=== PATIENT | female | born 1985 | race Caucasian/White ===

== ENCOUNTER 2017-03-02 13:57 | Emergency (ER) | payer MEDICAID, OTHER ==
--- NOTE | 2017-03-02 14:57 | ED Physician Documentation ---
History of Present Illness - Stated complaint Stated Complaint: FEMALE - Chief complaint Chief Complaint: General - History obtained from History obtained from: Patient - History of Present Illness Timing: Other (31-year-old has had overt pain with cramping and occasional left- sided stabbing pain for a month since having a new IUD placed, and feels like the strings are excessively palpable. Had a fever a week ago was diagnosed with mastitis and hasn't had a fever since starting antibiotics.) Review of Systems Constitutional: denies: Fever, Chills Cardiac: denies: Chest pain / pressure, Palpitations Respiratory: denies: Dyspnea, Cough GI: denies: Nausea, Diarrhea PD PAST MEDICAL HISTORY - Past Medical History Respiratory: Asthma - Past Surgical History Past Surgical History: Yes - Present Medications Home Medications: Ambulatory Orders Medication Instructions Recorded Confirmed Fluticasone [Flonase] 1 spray ANATOLIY DAILY 05/15/16 03/02/17 Thyroid,Pork [[place] Thyroid] 30 mg PO DAILY 05/15/16 03/02/17 Vitamin D3/Folic Acid [Noxifol-D3 1 tab PO DAILY 05/15/16 03/02/17 2,500 Unit-1 mg Tab] - Allergies Allergies/Adverse Reactions: Allergies Allergy/AdvReac Type Severity Reaction Status Date / Time No Known Drug Allergies Allergy Verified 05/15/16 23:15 - Social History Does the pt smoke?: No Smoking Status: Never smoker Does the pt drink ETOH?: No Does the pt have substance abuse?: No - Immunizations Immunizations are current?: Yes PD ED PE NORMAL - Vitals Vital signs reviewed: Yes - General General: Alert and oriented X 3, No acute distress - Abdomen Abdomen: Soft, Non tender - Female Female : Studio Camera 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 (Kendal LANGFORD), Other (Strings about 3-4 cm out of os and requested IUD removal and this was done.) - Derm Derm: No rash - Neuro Neuro: Alert and oriented X 3, Normal speech - Psych Psych: Normal mood, Normal affect Results - Vitals Vitals: Vital Signs - 24 hr 03/02/17 03/02/17 14:03 15:22 Temperature 36.7 C Heart Rate 58 L 66 Respiratory 18 14 Rate Blood Pressure 119/72 124/72 O2 Saturation 100 100 Oxygen O2 Source Room air - Labs Labs: Laboratory Tests 03/02/17 15:10 Urine Color YELLOW Urine Clarity CLEAR Urine pH 6.5 Ur Specific [place] 1.015 Urine Protein NEGATIVE Urine Glucose (UA) NEGATIVE Urine Ketones NEGATIVE Urine Occult Blood NEGATIVE Urine Nitrite NEGATIVE Urine Bilirubin NEGATIVE Urine Urobilinogen 0.2 (NORMAL) Ur Leukocyte Esterase NEGATIVE Ur Microscopic Review NOT INDICATED Urine Culture Comments NOT INDICATED Urine HCG, Qual NEGATIVE PD MEDICAL DECISION MAKING - ED course ED course: Ongoing symptoms likely related old to low lying IUD and she requested removal which was done. Departure - Departure Disposition: 01 Home, Self Care Clinical Impression: Encounter for IUD removal Condition: Good Record reviewed to determine appropriate education?: Yes Comments: Use alternative control until you followup with your physician and discuss either replacement of the IUD or alternatives. Discharge Date/Time: 03/02/17 15:32
[2017-03-02 15:23] VITALS: BP 124/72
[2017-03-02 15:32] LABS: BILIRUBIN,URINE NEGATIVE (NEGATIVE); PH,URINE 6.5 PH (5.0-7.5)
[2017-03-02 15:35] LABS: HCG UR QUAL NEGATIVE; UA CHARGE (STRIP ONLY) YES; UR CULTURE IF IND NOT INDICATED
== END 2017-03-02 15:32 | disposition home or self-care (01) ==
LOC: ED 13:57
DX: Z30.432 Encounter for removal of intrauterine contraceptive device (principal); J45.909 Unspecified asthma, uncomplicated
CPT/HCPCS: 81001; 81003; 81025; 87086; 99283

== ENCOUNTER 2021-07-18 13:47 | Emergency (ER) | payer MEDICAID, OTHER ==
[2021-07-18] MEDS ORDERED: CHERRY SYRUP 10 ML UDC PO ONE (14:19)
[2021-07-18] MEDS ORDERED: DEXAMETHASONE 10 MG/ML VIAL PO STA (14:19)
[2021-07-18] MEDS ORDERED: KETOROLAC 60 MG/2 ML VIAL IM STA (14:19)
--- NOTE | 2021-07-18 14:21 | ED Physician Documentation ---
PD HPI CHEST PAIN - Stated complaint Stated Complaint: RT SIDE RIB INJ/FEVER - Chief complaint Chief Complaint: General - History obtained from History obtained from: Patient - History of Present Illness Timing - onset: How many days ago (4) Timing - onset during: Other (fell) Timing - duration: Days (4) Timing - details: Abrupt onset, Still present Quality: Sharp, Pain Location: Right chest Radiation: No: Jaw, Neck, Back, Abdominal, Left upper extremity, Right upper extremity Improved by: Rest Worsened by: Exertion, Inspiration, Movement, Palpation, Position Associated symptoms: Shortness of air. No: Diaphoresis, Nausea, Vomiting, Feeling faint / dizzy Similar symptoms before: Has not had sx before Recently seen: Not recently seen - Additional information Additional information: 35-year-old female with a history of ulcerative colitis has developed worsening chest pain after falling 4 days ago and injuring her right ribs. She states that she felt a crack and heard a crack when this occurred and she has had increasing pain over the past 4 days. She recalls an injury to her ribs the prior week when she went to crawl into an attic space and pulled herself up through the hole in the ceiling and scraped her right side chest on the opening. She had some pain with that but it resolved. She subsequently fell in the shower four days ago and at that time heard the crack. Pain has increased daily. She gives additional history that she was able to walk on a femur fracture for 2 years until she re-injured the area and had to have a procedure to fix it. Review of Systems Constitutional: reports: Fever Eyes: denies: Decreased vision Ears: denies: Ear pain Nose: denies: Congestion Throat: denies: Sore throat Cardiac: reports: Chest pain / pressure. denies: Palpitations, Pedal edema, Calf pain Respiratory: denies: Dyspnea, Cough, Wheezing GI: denies: Abdominal Pain, Nausea, Vomiting, Constipation, Diarrhea : denies: Dysuria, Frequency Musculoskeletal: denies: Neck pain, Back pain, Extremity pain Neurologic: denies: Generalized weakness, Focal weakness, Numbness PD PAST MEDICAL HISTORY - Past Medical History Respiratory: Asthma - Past Surgical History Past Surgical History: Yes - Present Medications Home Medications: Ambulatory Orders Medication Instructions Recorded Confirmed Fluticasone [Flonase] 1 spray ANATOLIY DAILY 05/15/16 03/02/17 Thyroid,Pork [[place] Thyroid] 30 mg PO DAILY 05/15/16 03/02/17 Vitamin D3/Folic Acid [Noxifol-D3 1 tab PO DAILY 05/15/16 03/02/17 2,500 Unit-1 mg Tab] HYDROcod/ACETAM 5/325 [[place] 5/325] 1 - 2 tablet PO Q6H PRN #14 tablet 07/18/21 - Allergies Allergies/Adverse Reactions: Allergies Allergy/AdvReac Type Severity Reaction Status Date / Time No Known Drug Allergies Allergy Verified 07/18/21 14:07 - Social History Does the pt smoke?: No Smoking Status: Never smoker Does the pt drink ETOH?: No Does the pt have substance abuse?: No - Immunizations Immunizations are current?: Yes PD ED PE NORMAL - Vitals Vital signs reviewed: Yes (nomral ) - General General: Alert and oriented X 3, No acute distress, Well developed/nourished - HEENT HEENT: Atraumatic, PERRL, EOMI - Neck Neck: Supple, no meningeal sign, No bony TTP - Cardiac Cardiac: RRR, No murmur - Respiratory Respiratory: No respiratory distress, Clear bilaterally, Other (mild chest wall tenderness to the lateral chest wall on the right side. ) - Abdomen Abdomen: Soft, Non tender - Back Back: No CVA TTP, No spinal TTP - Derm Derm: Normal color, Warm and dry, No rash - Extremities Extremities: No deformity, No edema - Neuro Neuro: Alert and oriented X 3, regional economic liaison 2-12 intact, No motor deficit, No sensory deficit, Normal speech Eye Opening: Spontaneous Motor: Obeys Commands Verbal: Oriented GCS Score: 15 - Psych Psych: Normal mood, Normal affect Results - Vitals Vitals: Vital Signs - 24 hr 07/18/21 14:04 Temperature 36.7 C Heart Rate 84 Respiratory 14 Rate O2 Saturation 99 Oxygen O2 Source Room air - Rads (name of study) ribs with PA chest Radiology: Prelim report reviewed (Impression: Chest without acute cardiopulmonary abnormalities. No evidence for acute/displaced rib fractures.), EMP read indepedently, See rad report PD MEDICAL DECISION MAKING - ED course Complexity details: reviewed results, re-evaluated patient, considered differential, d/w patient ED course: 35-year-old female with a chest wall contusion and worsening pain 4 days after injury has typical onset of peak of pain. She is administered dexamethasone and Toradol with improvement in her pain. Her plain films do not demonstrate any evidence of a fracture. I have indicated the patient that she could still have a cracked one of her ribs would behave identical to a fracture. Departure - Departure Disposition: 01 Home, Self Care Clinical Impression: Chest wall contusion Qualifiers: Encounter type: initial encounter Laterality: right Qualified Code(s): S20.211A - Contusion of right front wall of thorax, initial encounter Condition: Stable Instructions: ED Contusion Chest Wall, ED Contusion Vs Minor Fx Rib Follow-Up: PIPER WELLS [Primary Care Provider] - Prescriptions: HYDROcod/ACETAM 5/325 [[place] 5/325] 1 - 2 tablet PO Q6H PRN #14 tablet PRN Reason: Pain
--- NOTE | 2021-07-18 15:59 | XRAY Report ---
PROCEDURE: Ribs w/PA Chest RT INDICATIONS: rib pain laterally TECHNIQUE: 2 views of the right ribs were acquired, along with a single view chest. COMPARISON: None FINDINGS: Surgical changes and devices: None. Bones and chest wall: No fractures or dislocations. Well-circumscribed oval sclerotic lesion involvi ng the proximal right humerus likely representing a bone island. No aggressive features identified. O therwise, no suspicious bony lesions. Overlying soft tissues appear unremarkable. Lungs and pleura: No pleural effusions or pneumothorax. Lungs appear clear. Mediastinum: Mediastinal contours appear normal. Heart size is normal. IMPRESSION: Chest without acute cardiopulmonary abnormalities. No evidence for acute/displaced rib fractures. Reviewed by: Mir Arana MD on 07/18/2021 3:58 PM PDT Approved by: Mir Arana MD on 07/18/2021 3:58 PM PDT Station ID: [id number]
== END 2021-07-18 16:20 | disposition home or self-care (01) ==
LOC: ED 13:47
DX: S20.211A Contusion of right front wall of thorax, initial encounter (principal); W18.2XXA Fall in (into) shower or empty bathtub, initial encounter; Y92.9 Unspecified place or not applicable; K51.90 Ulcerative colitis, unspecified, without complications
CPT/HCPCS: 96372; 99283

== ENCOUNTER 2022-08-11 13:47 | Emergency (ER) | payer MEDICAID ==
[2022-08-11 14:19] LABS: BASOPHILS % (AUTO) 0.2 %; HCT - HEMATOCRIT 37.5 % (37.0-47.0); HGB - HEMOGLOBIN 12.7 g/dL (12.0-16.0); LYMPHOCYTES # (AUTO) 1.4 10^3/uL (1.5-3.5); LYMPHOCYTES % (AUTO) 7.9 %; MEAN CORPUSCULAR HEMOGLOBIN 31.3 pg (27.0-31.0); MEAN CORPUSCULAR HGB CONC 33.9 g/dL (32.0-36.0); MEAN CORPUSCULAR VOLUME 92.4 fL (81.0-99.0); MEAN PLATELET VOLUME 9.9 fL (7.9-10.8); MONOCYTES # (AUTO) 0.8 10^3/uL (0.0-1.0); MONOCYTES % (AUTO) 4.5 %; NEUTROPHILS # (AUTO) 15.5 10^3/uL (1.5-6.6); NEUTROPHILS % (AUTO) 86.8 %; PLT - PLATELET COUNT 251 10^3/uL (130-450); RED BLOOD COUNT 4.06 10^6/uL (4.20-5.40); RED CELL DISTRIBUTION WIDTH 11.6 % (12.0-15.0); WHITE BLOOD COUNT 17.8 x10^3/uL (4.8-10.8)
[2022-08-11] MEDS ORDERED: methylPREDNISolone SUCCINATE 125 MG/2 ML VIAL IVP STA (14:24)
[2022-08-11] MEDS ORDERED: ONDANSETRON 4 MG/2 ML VIAL IVP STA (14:24)
[2022-08-11] MEDS ORDERED: SODIUM CHLORIDE 0.9% 2,000 ML IV STA (14:24)
--- NOTE | 2022-08-11 14:28 | ED Physician Documentation ---
History of Present Illness - Stated complaint Stated Complaint: ABD PX,FEVER,FATIGUE - Chief complaint Chief Complaint: Abd Pain - History obtained from History obtained from: Patient - History of Present Illness Timing: How many days ago (5) - Additonal information Additional information: Patient is a 36-year-old female who presents to the emergency department complaining of abdominal pain for the past 5 days. She has a history of ulcerative colitis, she is on Humira at home. She recently finished a course of steroids and antibiotics for what sounds like cystic acne. She was on cephalexin for this. She states that she has had a small amount of blood in the stool. Has had more constipation than diarrhea. No vomiting. She has had mild nasal congestion with green mucus drainage from her nose. She sees GI at [facility]. Feels similar to her prior UC flares. Review of Systems Ten Systems: 10 systems reviewed and negative Constitutional: denies: Fever, Chills Respiratory: denies: Cough GI: denies: Vomiting, Hematemesis, Bloody / black stool Skin: denies: Rash Musculoskeletal: denies: Neck pain, Back pain Neurologic: denies: Headache PD PAST MEDICAL HISTORY - Past Medical History Past Medical History: Yes Respiratory: Asthma GI: Ulcerative colitis - Past Surgical History Past Surgical History: Yes - Present Medications Home Medications: Ambulatory Orders Medication Instructions Recorded Confirmed Adalimumab [Humira(Cf) Pen] 40 mg SQ PRN PRN 08/11/22 08/11/22 Cefdinir 300 mg PO BID #20 cap 08/11/22 HYDROmorphone [Dilaudid] 2 mg PO Q4H PRN #14 tablet 08/11/22 Levothyroxine Sodium [Euthyrox] 88 mcg PO DAILY 08/11/22 08/11/22 Spironolactone [Aldactone] 50 mg PO DAILY 08/11/22 08/11/22 predniSONE [Deltasone] 10 mg PO [id number] #42 tab 08/11/22 - Allergies Allergies/Adverse Reactions: Allergies Allergy/AdvReac Type Severity Reaction Status Date / Time No Known Drug Allergies Allergy Verified 07/18/21 14:07 - Social History Does the pt smoke?: No Smoking Status: Never smoker Does the pt drink ETOH?: No Does the pt have substance abuse?: No - Immunizations Immunizations are current?: Yes - POLST Patient has POLST: No PD ED PE NORMAL - Vitals Vital signs reviewed: Yes - General General: Alert and oriented X 3, No acute distress, Well developed/nourished - HEENT HEENT: PERRL, Moist mucous membranes - Neck Neck: Supple, no meningeal sign - Cardiac Cardiac: RRR, Strong equal pulses - Respiratory Respiratory: No respiratory distress, Clear bilaterally - Abdomen Abdomen: Soft, Non distended, Other (Tender to palpation on the left lower quadrant. No peritoneal signs.) - Back Back: No CVA TTP, No spinal TTP - Derm Derm: Warm and dry - Extremities Extremities: No edema - Neuro Neuro: Alert and oriented X 3 - Psych Psych: Normal mood, Normal affect Results - Vitals Vitals: Vital Signs - 24 hr 08/11/22 08/11/22 08/11/22 13:56 15:59 17:00 Temperature 37.0 C Heart Rate 76 71 76 Respiratory 19 19 19 Rate Blood Pressure 147/88 H 121/72 122/75 O2 Saturation 98 98 99 Oxygen O2 Source Room air - Labs Labs: Laboratory Tests 08/11/22 08/11/22 08/11/22 14:02 14:10 14:10 WBC 17.8 H RBC 4.06 L Hgb 12.7 Hct 37.5 MCV 92.4 MCH 31.3 H MCHC 33.9 RDW 11.6 L Plt Count 251 MPV 9.9 Neut # (Auto) 15.5 H Lymph # (Auto) 1.4 L [place] # (Auto) 0.8 Eos # (Auto) 0.0 Baso # (Auto) 0.0 Absolute Nucleated RBC 0.00 Nucleated RBC % 0.0 Sodium 134 L Potassium 3.9 Chloride 101 Carbon Dioxide 24 Anion Gap 9.0 BUN 15 Creatinine 0.9 Estimated GFR (MDRD) 71 L Glucose 111 H Calcium 9.3 Total Bilirubin 1.1 H AST 19 ALT 19 Alkaline Phosphatase 45 Total Protein 7.7 Albumin 4.8 Globulin 2.9 Albumin/Globulin Ratio 1.7 Lipase 33 Urine Color YELLOW Urine Clarity CLEAR Urine pH 6.0 Ur Specific [place] 1.010 Urine Protein NEGATIVE Urine Glucose (UA) NEGATIVE Urine Ketones NEGATIVE Urine Occult Blood SMALL H Urine Nitrite NEGATIVE Urine Bilirubin NEGATIVE Urine Urobilinogen 0.2 (NORMAL) Ur Leukocyte Esterase TRACE H Urine RBC 0-5 Urine WBC 6-10 H Ur Squamous Epith Cells RARE Squamous Urine Bacteria Rare Ur Microscopic Review INDICATED Urine Culture Comments INDICATED Urine HCG, Qual NEGATIVE - Rads (name of study) CT abdomen pelvis Radiology: Final report received, EMP read contemporaneously, See rad report PD MEDICAL DECISION MAKING - ED course Complexity details: reviewed results, re-evaluated patient, considered differential, d/w patient ED course: 36-year-old female with abdominal pain. She does have a 4.5 x 3.1 cm lesion in the left adnexa. Likely ovarian cyst. No evidence of torsion. She does have a leukocytosis, but has been on prednisone recently. She does feel like she is having a ulcerative colitis flare, therefore we will treat with steroids. She also appears to have a UTI. Will place on antibiotics for this. We will have her follow-up with her doctor regarding the ovarian cyst. Patient is well- appearing, nontoxic. Afebrile. No vomiting. Patient counseled regarding signs and symptoms for which I believe and urgent re-evaluation would be necessary. Patient with good understanding of and agreement to plan and is comfortable going home at this time This document was made in part using voice recognition software. While efforts are made to proofread this document, sound alike and grammatical errors may occur. IMPRESSION: 1. There is a 4.5 x 3.1 cm oval, near fluid attenuation cystic lesion in the region the left ovary/adnexa likely representing an ovarian cyst. Otherwise, no acute abnormalities identified in the abdomen or pelvis. Specifically, no evidence for acute inflammatory changes of large or small bowel. 2. Small fat-containing umbilical hernia without acute inflammation. Departure - Departure Disposition: 01 Home, Self Care Clinical Impression: Ulcerative colitis Qualifiers: Ulcerative colitis location: unspecified ulcerative colitis location Digestive disease complication type: without complication Qualified Code(s): K51.90 - Ulcerative colitis, unspecified, without complications Ovarian cyst Qualifiers: Laterality: left Qualified Code(s): N83.202 - Unspecified ovarian cyst, left side UTI (urinary tract infection) Qualifiers: Urinary tract infection type: acute cystitis Hematuria presence: without hematuria Qualified Code(s): N30.00 - Acute cystitis without hematuria Condition: Good Instructions: ED Cyst Ovarian, ED Colitis Ulcerative Follow-Up: PIPER WELLS [Primary Care Provider] - Within 1 week Prescriptions: Cefdinir 300 mg PO BID #20 cap predniSONE [Deltasone] 10 mg PO [id number] #42 tab HYDROmorphone [Dilaudid] 2 mg PO Q4H PRN #14 tablet PRN Reason: Abdominal Pain Comments: You do have a left-sided ovarian cyst on CT. It is recommended that you follow- up with your doctor to ensure resolution of this. They will usually want to repeat an ultrasound in about 4 to 6 weeks. Your prescriptions were sent to [facility] in [place]. You can use the medication as needed for pain. The steroid should help with the ulcerative colitis flare. There is no evidence of abscess or perforation on CT scan. I am prescribing a short course of narcotic pain medication for you. These are potentially dangerous and addictive medications that should be used carefully. These medications may constipate you. Take an [id number] stool softener (docusate) twice daily with plenty of water while taking these medications. If you go 24 hours without a bowel movement, take [id number] miralax, per package instructions. Do not drink or drive while taking these medications. If you received narcotic or sedating medications while in the emergency department, do not drive for 24 hours. Store this medication in a safe, secure place and out of reach of children. It is a violation of federal law to give or sell this medication to another person or to use in a manner other than prescribed. The ED will not refill narcotic prescriptions, including prescriptions lost or stolen. To dispose of unwanted medications: 1. [facility] at [address] in [place] has a medication drop box. They accept prescription medications (in pill form) Saturday through Saturday 9:00 a.m. to 5:00 p.m. 2. The [facility] accepts prescription medications (in pill form only) for disposal year round. Call for more information. 3. Contact the [facility] for the next [facility] sponsored prescription drug collection event. , [phone], or [phone]; Discharge Date/Time: 08/11/22 17:08
[2022-08-11 14:29] LABS: ALBUMIN 4.8 g/dL (3.2-5.5); ALBUMIN/GLOBULIN RATIO 1.7 (1.0-2.2); BILIRUBIN,TOTAL 1.1 mg/dL (0.2-1.0); CALCIUM 9.3 mg/dL (8.5-10.3); CREATININE 0.9 mg/dL (0.4-1.0); POTASSIUM 3.9 mmol/L (3.5-5.0); TOTAL PROTEIN 7.7 g/dL (6.7-8.2)
[2022-08-11 14:37] LABS: BILIRUBIN,URINE NEGATIVE (NEGATIVE); GLUCOSE, URINE (UA) NEGATIVE (NEGATIVE); KETONES,URINE (UA) NEGATIVE (NEGATIVE); LEUKOCYTE ESTERASE, URINE TRACE (NEGATIVE); NITRITE,URINE NEGATIVE (NEGATIVE); OCCULT BLOOD,URINE SMALL (NEGATIVE); PROTEIN,URINE NEGATIVE (NEGATIVE); UROBILINOGEN,URINE 0.2 (NORMAL) E.U./dL (NORMAL)
[2022-08-11 14:43] LABS: CLARITY,URINE CLEAR (CLEAR); HCG UR QUAL NEGATIVE
[2022-08-11] MEDS ORDERED: iohexoL-300 100 ML VIAL ONE (14:48)
[2022-08-11 15:04] LABS: BACTERIA,URINE Rare /HPF (None Seen); RBC,URINE 0-5 /HPF (0-5); SQUAMOUS EPITHELIAL CELL,UR RARE Squamous (<= Few)
[2022-08-11] MEDS ORDERED: iohexoL-300 100 ML VIAL IVP ONE (15:15)
--- NOTE | 2022-08-11 15:54 | CT Report ---
PROCEDURE: ABDOMEN/PELVIS W INDICATIONS: L sided abd pain, h/o ulcerative colitis CONTRAST: 100ml omni 300 TECHNIQUE: After the administration of weight appropriate dose of intravenous contrast, 5 mm thick sections acqu ired from the diaphragms to the symphysis. 5 mm thick coronal and sagittal reformats were acquired. For radiation dose reduction, the following was used: automated exposure control, adjustment of mA and/or kV according to patient size. COMPARISON: None. FINDINGS: Image quality: Excellent. ABDOMEN: Lung bases: Lung bases are clear. Heart size is normal. Partially imaged bilateral breast implants . Solid organs: Liver and spleen are normal in size and enhancement. Gallbladder is unremarkable. Bi liary system is non dilated. Pancreas enhances normally. No adrenal nodules. Kidneys demonstrate n ormal size and enhancement, without hydronephrosis. Peritoneum and bowel: Bowel loops demonstrate normal wall thickness and caliber. No free fluid or a ir. Nodes and vessels: No retroperitoneal or mesenteric adenopathy by size criteria. Aorta and inferior vena cava are normal in size. Miscellaneous: Small fat-containing umbilical hernia without acute inflammation. PELVIS: Genitourinary: Bladder wall thickness is normal. There is a 4.5 x 3.1 cm oval hypodense lesion oscar uring near fluid attenuation in the region of the left ovary/adnexa. This likely represents an ovaria n cyst. No surrounding inflammatory changes or significant pelvic free fluid. Miscellaneous: No inguinal hernias or adenopathy. Bones: No suspicious bony lesions. No acute vertebral body compression fractures. IMPRESSION: 1. There is a 4.5 x 3.1 cm oval, near fluid attenuation cystic lesion in the region the left ovary/ad nexa likely representing an ovarian cyst. Otherwise, no acute abnormalities identified in the abdomen or pelvis. Specifically, no evidence for acute inflammatory changes of large or small bowel. 2. Small fat-containing umbilical hernia without acute inflammation. Reviewed by: Mir Arana MD on 08/11/2022 3:52 PM PST Approved by: Mir Arana MD on 08/11/2022 3:52 PM PST Station ID: [id number]
[2022-08-11] MEDS ORDERED: LIDOCAINE 1% 2 ML VIAL MC ONE (16:35)
[2022-08-11] MEDS ORDERED: cefTRIAXone 1 GM VIAL IM STA (16:35)
[2022-08-11 17:08] VITALS: BP 122/75
== END 2022-08-11 17:08 | disposition home or self-care (01) ==
LOC: ED 13:47
DX: K51.90 Ulcerative colitis, unspecified, without complications (principal); N83.202 Unspecified ovarian cyst, left side; N30.00 Acute cystitis without hematuria
CPT/HCPCS: 36415; 74177; 80053; 81001; 81025; 83690; 85025; 87077; 87086; 87181; 96372; 96374; 99284; Q9967; 81003

== ENCOUNTER 2023-01-15 11:27 | Emergency (ER) | payer MEDICAID ==
[2023-01-15] MEDS ORDERED: SODIUM CHLORIDE 0.9% IV STA (11:51)
[2023-01-15] MEDS ORDERED: ONDANSETRON 4 MG/2 ML VIAL IVP STA (11:56)
--- NOTE | 2023-01-15 11:56 | ED Physician Documentation ---
History of Present Illness - Stated complaint Stated Complaint: FEMALE , HYDRATION,SHAKES - Chief complaint Chief Complaint: Fever - Additonal information Additional information: 37-year-old female presents emergency department for evaluation of acute fevers, difficulty urinating, dysuria, and mucoid/bloody stools. Reports that she underwent a partial hysterectomy just over 1 week ago at [facility] with Dr. Olivares. During surgery she had a Sherman catheter in place. She reports that the staff told her they gave her 3 L of IV fluid but she only had 44 mL of urinary output. Since discharge over the course of the week she is fou nd painful urination but is unsure if she is actually voiding large amounts. She has been trying to stay well-hydrated. This morning she had generalized body aches, subjective fevers at home and noticed that her stools have become mucoid and stringy whereas they are typically bloody. She does have a longstanding history of ulcerative colitis which she is on Humira. Patient has been taking budesonide per recommendation of GI since being postoperative. She also reports that she had Giardia about 1 week prior to having the surgery for which she took antibiotics. Patient denies any cough. She has some generalized nonfocal abdominal pain. Surgical incision sites are clean dry and intact. Patient reports that she has had little to no vaginal bleeding since discharge last week. Review of Systems Constitutional: reports: Fever, Myalgias Throat: reports: Reviewed and negative Cardiac: reports: Reviewed and negative Respiratory: reports: Reviewed and negative GI: reports: Abdominal Pain, Nausea, Bloody / black stool. denies: Vomiting : reports: Dysuria, Unable to Void Skin: reports: Reviewed and negative Musculoskeletal: reports: Reviewed and negative Neurologic: reports: Reviewed and negative PD PAST MEDICAL HISTORY - Past Medical History Respiratory: Asthma GI: Ulcerative colitis - Past Surgical History Past Surgical History: Yes - Present Medications Home Medications: Ambulatory Orders Medication Instructions Recorded Confirmed Adalimumab [Humira(Cf) Pen] 40 mg SQ PRN PRN 08/11/22 08/11/22 Cefdinir 300 mg PO BID #20 cap 08/11/22 HYDROmorphone [Dilaudid] 2 mg PO Q4H PRN #14 tablet 08/11/22 Levothyroxine Sodium [Euthyrox] 88 mcg PO DAILY 08/11/22 08/11/22 Spironolactone [Aldactone] 50 mg PO DAILY 08/11/22 08/11/22 predniSONE [Deltasone] 10 mg PO [id number] #42 tab 08/11/22 - Allergies Allergies/Adverse Reactions: Allergies Allergy/AdvReac Type Severity Reaction Status Date / Time latex Allergy Hives Verified 01/15/23 11:38 oxycodone Allergy Hives Verified 01/15/23 11:38 - Social History Does the pt smoke?: No Smoking Status: Never smoker Does the pt drink ETOH?: No Does the pt have substance abuse?: No - Immunizations Immunizations are current?: Yes - POLST Patient has POLST: No PD ED PE NORMAL - General General: Alert and oriented X 3, Well developed/nourished (Thin). No: No acute distress (Appears uncomfortable, in the position.) - HEENT HEENT: Atraumatic, Moist mucous membranes - Neck Neck: Supple, no meningeal sign, No adenopathy - Cardiac Cardiac: RRR, No murmur - Respiratory Respiratory: No respiratory distress, Clear bilaterally - Abdomen Abdomen: Normal bowel sounds, Soft. No: Non tender (Generally tender though nonperitoneal abdominal exam. Surgical laparotomy sites appear clean dry and intact without surrounding erythema or drainage.) - Back Back: No CVA TTP, No spinal TTP - Derm Derm: Normal color, Warm and dry, No rash - Extremities Extremities: No deformity, Normal ROM s pain, No edema - Neuro Neuro: Alert and oriented X 3, rooming house operator 2-12 intact Eye Opening: Spontaneous Motor: Obeys Commands Verbal: Oriented GCS Score: 15 Results - Vitals Vitals: Vital Signs - 24 hr 01/15/23 01/15/23 01/15/23 11:35 12:23 13:03 Temperature 38.0 C H Heart Rate 96 79 77 Respiratory 20 18 16 Rate Blood Pressure 135/95 H 127/70 113/54 L O2 Saturation 100 100 01/15/23 01/15/23 14:30 15:12 Temperature Heart Rate 87 89 Respiratory 16 18 Rate Blood Pressure 113/57 L 121/68 O2 Saturation 100 100 Oxygen O2 Source Room air - Labs Labs: Laboratory Tests 01/15/23 01/15/23 01/15/23 11:54 11:54 11:54 WBC 14.7 H RBC 4.05 L Hgb 12.7 Hct 37.3 MCV 92.1 MCH 31.4 H MCHC 34.0 RDW 11.6 L Plt Count 197 MPV 9.8 Neut # (Auto) 11.7 H Lymph # (Auto) 1.2 L Wetzel # (Auto) 0.9 Eos # (Auto) 0.7 Baso # (Auto) 0.1 Absolute Nucleated RBC 0.00 Nucleated RBC % 0.0 Sodium 135 Potassium 3.3 L Chloride 100 L Carbon Dioxide 26 Anion Gap 9.0 BUN 13 Creatinine 0.8 Estimated GFR (MDRD) 81 L Glucose 96 Lactic Acid 0.8 Calcium 9.1 Total Bilirubin 1.4 H AST 16 ALT 18 Alkaline Phosphatase 40 L Total Protein 7.9 Albumin 4.8 Globulin 3.1 Albumin/Globulin Ratio 1.5 Urine Color Urine Clarity Urine pH Ur Specific [place] Urine Protein Urine Glucose (UA) Urine Ketones Urine Occult Blood Urine Nitrite Urine Bilirubin Urine Urobilinogen Ur Leukocyte Esterase Urine RBC Urine WBC Ur Squamous Epith Cells Urine Bacteria Urine Culture Comments Nasal Adenovirus (PCR) Nasal B. parapertussis DNA (PCR) Nasal Coronavir 229E PCR Nasal Coronavir HKU1 PCR Nasal Coronavir NL63 PCR Nasal Coronavir OC43 PCR Nasal Enterovir/Rhinovir PCR Nasal Influenza B PCR Nasal Influenza A PCR Nasal Parainfluen 1 PCR Nasal Parainfluen 2 PCR Nasal Parainfluen 3 PCR Nasal Parainfluen 4 PCR Nasal RSV (PCR) Nasal B.pertussis DNA PCR Nasal C.pneumoniae (PCR) Mario Human Metapneumo PCR Nasal M.pneumoniae (PCR) Nasal SARS-CoV-2 (PCR) 01/15/23 01/15/23 12:15 12:20 WBC RBC Hgb Hct MCV MCH MCHC RDW Plt Count MPV Neut # (Auto) Lymph # (Auto) Wetzel # (Auto) Eos # (Auto) Baso # (Auto) Absolute Nucleated RBC Nucleated RBC % Sodium Potassium Chloride Carbon Dioxide Anion Gap BUN Creatinine Estimated GFR (MDRD) Glucose Lactic Acid Calcium Total Bilirubin AST ALT Alkaline Phosphatase Total Protein Albumin Globulin Albumin/Globulin Ratio Urine Color YELLOW Urine Clarity CLEAR Urine pH 6.0 Ur Specific [place] 1.025 Urine Protein NEGATIVE Urine Glucose (UA) NEGATIVE Urine Ketones NEGATIVE Urine Occult Blood TRACE-INTA Urine Nitrite NEGATIVE Urine Bilirubin NEGATIVE Urine Urobilinogen 0.2 (NORMAL) Ur Leukocyte Esterase NEGATIVE Urine RBC 0-5 Urine WBC 0-3 Ur Squamous Epith Cells MOD Squamous H Urine Bacteria Rare Urine Culture Comments NOT INDICATED Nasal Adenovirus (PCR) NOT DETECTED Nasal B. parapertussis DNA (PCR) NOT DETECTED Nasal Coronavir 229E PCR NOT DETECTED Nasal Coronavir HKU1 PCR NOT DETECTED Nasal Coronavir NL63 PCR NOT DETECTED Nasal Coronavir OC43 PCR NOT DETECTED Nasal Enterovir/Rhinovir PCR NOT DETECTED Nasal Influenza B PCR NOT DETECTED Nasal Influenza A PCR NOT DETECTED Nasal Parainfluen 1 PCR NOT DETECTED Nasal Parainfluen 2 PCR NOT DETECTED Nasal Parainfluen 3 PCR NOT DETECTED Nasal Parainfluen 4 PCR NOT DETECTED Nasal RSV (PCR) NOT DETECTED Nasal B.pertussis DNA PCR NOT DETECTED Nasal C.pneumoniae (PCR) NOT DETECTED Mario Human Metapneumo PCR NOT DETECTED Nasal M.pneumoniae (PCR) NOT DETECTED Nasal SARS-CoV-2 (PCR) NOT DETECTED - Rads (name of study) cxr Relevant Findings:: Final report received, EMP independent interpretation of test (No acute cardiopulmonary process) CT abd Relevant Findings:: Final report received (A few fluid-filled small bowel bowel loops and minor generalized lower pelvic inflammation may indicate enteritis. No focal colonic findings to indicate acute ulcerative colitis. Involuting peripherally vascular Kuehler left ovarian corpus luteal cyst. Interval supraventricular hysterectomy) PD Medical Decision Making - ED course Complexity details: reviewed results, re-evaluated patient, d/w food consultant (Dr. Kristen Olivares) ED course: 37-year-old female presents emergency department for evaluation of difficulty urinating, generalized abdominal pain, mucoid stools and low-grade temperature elevations. She underwent a supracervical hysterectomy at [facility] 1 week ago. She does have a history of ulcerative colitis for which she takes Humira. She has been on Budesonide orally per GI recommendations for management of her UC since the surgery. On presentation to the emergency department she holds her cell from the position. States that she just feels crummy. Abdominal exam showed some generalized belly tenderness but was nonfocal and nonperitoneal. Her surgical incisions appear clean dry without signs of infection. She is not having any vaginal bleeding or discharge. I did obtain a CBC and electrolytes. She does have a mild leukocytosis though no significant left shift. She is on steroids postoperatively which could be the cause of the leukocytosis. Her electrolytes were without acute worrisome findings. Urinalysis showed no findings of infection. A chest x-ray showed no findings of pneumonia. Respiratory PCR panel was entirely negative. 1400: I spoke on the phone with Dr. Rolo Olivares at [facility] to the market research worker who performed the supracervical hysterectomy a little over a week ago. We discussed the patient's current labs indicate a mild leukocytosis with minimal shift. Patient has low-grade fever. Lower abdominal pain and difficulty urinating. She is not having any vaginal discharge. The surgical incisions are clean dry and intact with no surrounding erythema or drainage. CT scan indicates generalized enteritis but not a focal ulcerative colitis. Dr. Olivares was confident on the phone that the patient symptoms today were not likely related to the hysterectomy and encouraged me to speak with the patient's gastroenterology team at [facility]. 1450: I spoke on the phone with Dr. Robles On-call GI at [facility]. Based on what I reported to him for labs, abdominal exam history and CT results he does not feel that the patient would be benefited by having antibiotics. Specifically he does not feel the ulcerative colitis benefit from antibiotics. He was reassured that the CT scan showed no findings of abscess. He is unsure if her pain and fevers are due to a UC flare but did make the recommendation to send stool culture and CMV testing. He would have her continue on the Humira and Budesonide for now. 1530: At this time the patient endorses lower abdominal discomfort. She is able to adequately void. The bladder scan at the bedside showed no residual volume. There was no remarkable volume on CT scan. Clinically we do not have a source of infection. There is no pneumonia in the lungs. No urinary tract infection. Blood cultures are pending. The CT of the abdomen did not reveal any obvious source or findings of abscess collection. Respiratory PCR is negative. The patient reports to me that the Humira always makes her feel bad. She would like to not take it. I wonder if the Humira being taken in the setting of a postoperative state has caused a generalized flare. However at this time there does not appear to be a clinical need for admission. Though the patient is in the postoperative state she is without other worrisome findings. No tachycardia or hypotension. She is discharged home in stable condition. I encouraged her to follow closely with both GI and OB. We also discussed the usual emergent return precautions for failure of her symptoms to resolve Departure - Departure Disposition: Home, Self Care Clinical Impression: Status post hysterectomy, History of ulcerative colitis, Lower abdominal pain, Steroid dependence Condition: Stable Record reviewed to determine appropriate education?: Yes Comments: You came to the emergency department today because you have been having increased pain in your lower abdomen and having difficulty with urination. You did have a hysterectomy a week ago. You do have a history of ulcerative colitis. Today your CBC shows a mild elevation in your white count. This is often seen right after surgery and anytime people are on chronic steroids. Your electrolytes do not show any worrisome findings. You do not have a urinary tract infection. A viral panel was also negative. We did do a CT of your abdomen that does not show findings of an ulcerative colitis flare. There were no worrisome findings really late a to the hysterectomy. You may be having worsening symptoms as you report that Humira always makes you feel bad but it may be making you feel especially worse in the postoperative period. I have ordered stool studies which may be helpful in further diagnosing if you are having an ulcerative colitis flare. You can return the stool at any point to the ER or hospital for testing. It is important that you continue to follow very closely with your market research worker as well as your GI doctors. If you find that your symptoms are worsening, you have uncontrolled fevers, have any fainting episodes or uncontrolled vomiting then you should return immediately to the ER.
[2023-01-15] MEDS ORDERED: fentaNYL 100 MCG/2 ML VIAL IVP STA (12:00)
[2023-01-15] MEDS ORDERED: iohexoL-300 100 ML VIAL ONE (12:01)
[2023-01-15 12:06] LABS: BASOPHILS # (AUTO) 0.1 10^3/uL (0.0-0.1); BASOPHILS % (AUTO) 0.4 %; EOSINOPHILS # (AUTO) 0.7 10^3/uL (0.0-0.7); EOSINOPHILS % (AUTO) 4.7 %; HCT - HEMATOCRIT 37.3 % (37.0-47.0); HGB - HEMOGLOBIN 12.7 g/dL (12.0-16.0); LYMPHOCYTES # (AUTO) 1.2 10^3/uL (1.5-3.5); LYMPHOCYTES % (AUTO) 8.3 %; MEAN CORPUSCULAR HEMOGLOBIN 31.4 pg (27.0-31.0); MEAN CORPUSCULAR VOLUME 92.1 fL (81.0-99.0); MEAN PLATELET VOLUME 9.8 fL (7.9-10.8); MONOCYTES # (AUTO) 0.9 10^3/uL (0.0-1.0); MONOCYTES % (AUTO) 6.1 %; NEUTROPHILS # (AUTO) 11.7 10^3/uL (1.5-6.6); NEUTROPHILS % (AUTO) 80.2 %; PLT - PLATELET COUNT 197 10^3/uL (130-450); RED BLOOD COUNT 4.05 10^6/uL (4.20-5.40); RED CELL DISTRIBUTION WIDTH 11.6 % (12.0-15.0); WHITE BLOOD COUNT 14.7 x10^3/uL (4.8-10.8)
--- NOTE | 2023-01-15 12:14 | XRAY Report ---
PROCEDURE: Chest 1 View X-Ray INDICATIONS: fever, recent surgery TECHNIQUE: One view of the chest was acquired. COMPARISON: None. FINDINGS: Surgical changes and devices: None. Lungs and pleura: No pleural effusions or pneumothorax. Lungs are clear. Mediastinum: Mediastinal contours appear normal. Heart size is normal. Bones and chest wall: No suspicious bony lesions. Overlying soft tissues appear unremarkable. IMPRESSION: No acute cardiopulmonary disease. Reviewed by: Debbie Goodrich MD on 01/15/2023 12:13 PM PDT Approved by: Debbie Goodrich MD on 01/15/2023 12:13 PM PDT Station ID: [id number]
[2023-01-15 12:18] LABS: ALBUMIN 4.8 g/dL (3.2-5.5); ALBUMIN/GLOBULIN RATIO 1.5 (1.0-2.2); BILIRUBIN,TOTAL 1.4 mg/dL (0.2-1.0); CALCIUM 9.1 mg/dL (8.5-10.3); CREATININE 0.8 mg/dL (0.4-1.0); POTASSIUM 3.3 mmol/L (3.5-5.0); TOTAL PROTEIN 7.9 g/dL (6.7-8.2)
[2023-01-15 12:25] LABS: BILIRUBIN,URINE NEGATIVE (NEGATIVE); CLARITY,URINE CLEAR (CLEAR); GLUCOSE, URINE (UA) NEGATIVE (NEGATIVE); KETONES,URINE (UA) NEGATIVE (NEGATIVE); LEUKOCYTE ESTERASE, URINE NEGATIVE (NEGATIVE); NITRITE,URINE NEGATIVE (NEGATIVE); OCCULT BLOOD,URINE TRACE-INTA (NEGATIVE); PROTEIN,URINE NEGATIVE (NEGATIVE); UROBILINOGEN,URINE 0.2 (NORMAL) E.U./dL (NORMAL)
--- OUTSIDE RECORDS SUMMARY | 2023-01-15 12:31 | EXTERNAL MEDICAL SUMMARY RPT | Continuity of Care Document ---
:1985 Author Organization [facility] Address [address] [place] [address] Phone Care Team Providers Name Role Phone Unavailable Unavailable Unavailable Estrella Guevara Unavailable Unavailable Allergies and Intolerances date description facility type (no date) NSAIDS (Non-Steroidal Anti-Inflamma [facility] (unknown) (no date) latex [facility] (unknown) (no date) oxycodone [facility] (unknown) Encounters No information. Functional Status No information. Immunizations No information. Medications date description facility 2023-01-07 00:00 Ondansetron [facility] 2022-12-21 00:00 Alprazolam [facility] 2022-11-25 00:00 Amoxicillin-Pot Clavulanate [facility] 2023-01-07 00:00 Tramadol [facility] 2022-11-19 00:00 [facility] Problems date description facility 2022-10-27 00:00 Cyst of left ovary [facility] 2022-10-27 00:00 Pelvic congestion syndrome [facility] 2022-12-27 00:00 Pain in pelvis [facility] 2023-01-07 08:21 Other ovarian cyst, left side [facility] 2023-01-07 08:21 Other specified conditions associated [facility] female genital or 2023-01-07 08:21 Pelvic and perineal pain [facility] 2023-01-07 08:33 Other ovarian cyst, left side [facility] 2023-01-07 08:33 Other specified conditions associated [facility] female genital or 2023-01-07 08:33 Pelvic and perineal pain [facility] 2023-01-07 09:02 Other ovarian cyst, left side [facility] 2023-01-07 09:02 Other specified conditions associated [facility] female genital or 2023-01-07 09:02 Pelvic and perineal pain [facility] 2023-01-07 12:04 Other ovarian cyst, left side [facility] 2023-01-07 12:04 Other specified conditions associated w [facility] female genital or 2023-01-07 12:04 Pelvic and perineal pain [facility] 2023-01-07 13:41 Other [facility], [facility] 2023-01-07 13:41 Other specified conditions associated w [facility] female genital or 2023-01-07 13:41 Pelvic and perineal pain [facility] Procedures date description facility 2023-01-07 00:00 Laparoscopic Supracervical Hysterectomy [facility]) Results/Labs test date author facility value unit interpret ation Result panel 1 (unknown) (no date) (unknown) [facility] (no value) (units ([facility] unknown) Result panel 2 (unknown) (no date) (unknown) [facility] (no value) ([facility] ([facility] unknown) Result panel 3 (unknown) (no (unknown) (unknown) (no value) (units (unk nown) date) unknown) (unknown) (no (unknown) (unknown) 10/16/22 (units (unkno wn) date) unknown) (unknown) (no (unknown) (unknown) [id number] (units (unkno wn) date) unknown) (unknown) (no (unknown) (unknown) Age/Sex: 36 / F (units (unknown) date) Date of Service: unknown) (unknown) (no (unknown) (unknown) Allergies (units (unkn own) date) unknown) (unknown) (no (unknown) (unknown) [place] (units ( unknown) date) [id number] unknown) (unknown) (no (unknown) (unknown) Attending Dr: (units ( unknown) date) Phoebe Borges unknown) (unknown) (no (unknown) (unknown) Chief Complaint: (units (unknown) date) Pelvic congestion unknown) (unknown) (no (unknown) (unknown) Chronic (units (unkno wn) date) sinusitis unknown) (unknown) (no (unknown) (unknown) : 1985 (units (unknown) date) Acct:[id number] unknown) (unknown) (no (unknown) (unknown) Dept at (units (unkno wn) date) . unknown) (unknown) (no (unknown) (unknown) Documented By: (units (unknown) date) Phoebe Borges unknownSharonda AVALOS 10/16/22 1542 (unknown) (no (unknown) (unknown) Draft (units (unkno wn) date) unknown) (unknown) (no (unknown) (unknown) [facility] (units ([facility] date[facility] unknown) (unknown) (no (unknown) (unknown) Genital herpes (units (unknown) date) unknown) (unknown) (no (unknown) (unknown) Gynecology Visit (units (unknown) date) unknown) (unknown) (no (unknown) (unknown) H/O abnormal Pap (units (unknown) date) 10+ years ago. unknown) Few months later was normal. No H/O HPV, no (unknown) (no (unknown) (unknown) HALLUCINATIONS, (units (unknown) date) DIDN'T EAT FOR 4 unknown) DAYS (unknown) (no (unknown) (unknown) HIVES (units (unkno wn) date) unknown) (unknown) (no (unknown) (unknown) Hypothyroidism (units (unknown) date) unknown) (unknown) (no (unknown) (unknown) Intake Note: (units (u nknown) date) unknown) (unknown) (no (unknown) (unknown) Intake (units (unkno wn) date) unknown) (unknown) (no (unknown) (unknown) Last Menstural (units (unknown) date) Cycle + Details unknown) (unknown) (no (unknown) (unknown) Loc: [facility] (units (unkno wn) date) unknown) (unknown) (no (unknown) (unknown) Medical History (units (unknown) date) (Reviewed unknown) 01/20/21 @ 18:22 by Sanjeev Phelps DO) (unknown) (no (unknown) (unknown) Note (units (unkno wn) date) unknown) (unknown) (no (unknown) (unknown) Note: (units (unkno wn) date) unknown) (unknown) (no (unknown) (unknown) Notes (units (unkno wn) date) unknown) (unknown) (no (unknown) (unknown) Other Menstrual (units (unknown) date) Period: Other unknown) (unknown) (no (unknown) (unknown) PFSH (units (unkno wn) date) unknown) (unknown) (no (unknown) (unknown) Patient is s 36 (units (unknown) date) year old unknown) who preesents via TH to discuss pelvic (unknown) (no (unknown) (unknown) Patient: (units (unkno wn) date) Sameera Hameed unknown) MR#: [id number] (unknown) (no (unknown) (unknown) Reason For Visit (units (unknown) date) unknown) (unknown) (no (unknown) (unknown) Right hip pain (units (unknown) date) unknown) (unknown) (no (unknown) (unknown) She has had 3 (units ( unknown) date) deliveries: 1) unknown) Induction 8#6oz. 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 (units (un known) date) unknown) (unknown) (no (unknown) (unknown) have occurred. (units (unknown) date) If there are any unknown) questions, please contact the Medical Records (unknown) (no (unknown) (unknown) household (units (unkn own) date) members: spouse unknown) (unknown) (no (unknown) (unknown) housing: house (units (unknown) date) unknown) (unknown) (no (unknown) (unknown) latex [LATEX] (units ( unknown) date) Allergy (Severe, unknown) Verified 03/10/21 11:06) (unknown) (no (unknown) (unknown) lives (units (unkno wn) date) independently: unknown) Yes (unknown) (no (unknown) (unknown) marital status: (units (unknown) date) unknown) (unknown) (no (unknown) (unknown) may occur. (units (unk nown) date) Occasional unknown) wrong-word or 'sound-alike' substitutions may have (unknown) (no (unknown) (unknown) new partner. (units (u nknown) date) unknown) (unknown) (no (unknown) (unknown) occurred due to (units (unknown) date) the inherent unknown) limitations of voice recognition software. Please (unknown) (no (unknown) (unknown) oxycodone (units (unkn own) date) [OXYCODONE] unknown) Adverse Reaction (Severe, Verified 03/10/21 11:06) (unknown) (no (unknown) (unknown) placenta, (units (unkn own) date) Increased BP BW unknown) 5#3oz. 3) 7#6oz (unknown) (no (unknown) (unknown) read the note (units ( unknown) date) carefully and unknown) recognize, using context, where these substitutions (unknown) (no (unknown) (unknown) second hand (units (un known) date) exposure: No unknown) (unknown) (no (unknown) (unknown) software. (units (unkn own) date) Although every unknown) effort is made to edit content, associate professor of radiology errors (unknown) (no (unknown) (unknown) substance use (units ( unknown) date) type: marijuana unknown) Result panel 4 (unknown) (no (unknown) (unknown) (no value) (units (unk nown) date) unknown) (unknown) (no (unknown) (unknown) (1) Pelvic (units (unk nown) date) congestion: unknown) (unknown) (no (unknown) (unknown) (2) Left ovarian (units (unknown) date) cyst: unknown) (unknown) (no (unknown) (unknown) 10/16/22 (units (unkno wn) date) unknown) (unknown) (no (unknown) (unknown) 10/27/222007 (units ( unknown) date) unknown) (unknown) (no (unknown) (unknown) 13 (units (unkno wn) date) unknown) (unknown) (no (unknown) (unknown) [id number] (units (unkno wn) date) unknown) (unknown) (no (unknown) (unknown) 36 year old G4 (units (unknown) date) P3 with pelvic unknown) congestion and a left ovarian cyst (unknown) (no (unknown) (unknown) Age/Sex: 36 / F (units (unknown) date) Date of Service: unknown) (unknown) (no (unknown) (unknown) All participants (units (unknown) date) + their role: unknown) (Providers,Parent ,Spouse,etc): (unknown) (no (unknown) (unknown) Allergies (units (unkn own) date) unknown) (unknown) (no (unknown) (unknown) ANH Montero (units ( unknown) date) [id number] unknown) (unknown) (no (unknown) (unknown) Assessment + (units (u nknown) date) Plan unknown) (unknown) (no (unknown) (unknown) Assessment and (units (unknown) date) Plan: unknown) (unknown) (no (unknown) (unknown) Assessment: (units (un known) date) unknown) (unknown) (no (unknown) (unknown) Attending Dr: (units ( unknown) date) Phoebe Borges unknown) (unknown) (no (unknown) (unknown) Chief Complaint: (units (unknown) date) Pelvic congestion unknown) (unknown) (no (unknown) (unknown) Chronic (units (unkno wn) date) sinusitis unknown) (unknown) (no (unknown) (unknown) : 1985 (units (unknown) date) Acct:[id number] unknown) (unknown) (no (unknown) (unknown) Dept at (units (unkno wn) date) . unknown) (unknown) (no (unknown) (unknown) Desires (units (unkno wn) date) definitive unknown) therapy (unknown) (no (unknown) (unknown) Documented By: (units (unknown) date) Phoebe Borges unknown) 10/16/22 1542 (unknown) (no (unknown) (unknown) Documenting (units (un known) date) clinical unknown) information in EHR/Medical record: 4 (unknown) (no (unknown) (unknown) [facility] (units ([facility] date[facility] unknown) (unknown) (no (unknown) (unknown) Genital herpes (units (unknown) date) unknown) (unknown) (no (unknown) (unknown) Gynecology Visit (units (unknown) date) unknown) (unknown) (no (unknown) (unknown) H/O abnormal Pap (units (unknown) date) 10+ years ago. unknown) Few months later was normal. No H/O HPV, no (unknown) (no (unknown) (unknown) HALLUCINATIONS, (units (unknown) date) DIDN'T EAT FOR 4 unknown) DAYS (unknown) (no (unknown) (unknown) HIVES (units (unkno wn) date) unknown) (unknown) (no (unknown) (unknown) Has Ulcerative (units (unknown) date) colitis. Does not unknown) want any more kids. Wants to proceed with (unknown) (no (unknown) (unknown) Hypothyroidism (units (unknown) date) unknown) (unknown) (no (unknown) (unknown) Intake Note: (units (u nknown) date) unknown) (unknown) (no (unknown) (unknown) Intake (units (unkno wn) date) unknown) (unknown) (no (unknown) (unknown) [facility] handout (units (u nknown) date) sent in the mail unknown) (unknown) (no (unknown) (unknown) [facility]/bilat (units (unk nown) date) salpingectomy/rem unknown) oval of left ovarian cyst (unknown) (no (unknown) (unknown) Last Menstural (units (unknown) date) Cycle + Details unknown) (unknown) (no (unknown) (unknown) Loc: [facility] (units (unkno wn) date) unknown) (unknown) (no (unknown) (unknown) Location of (units (un known) date) patient:: Home unknown) (unknown) (no (unknown) (unknown) Location of (units (un known) date) provider:: Office unknown) (unknown) (no (unknown) (unknown) Medical History (units (unknown) date) (Reviewed unknown) 01/20/21 @ 18:22 by Sanjeev Phelps DO) (unknown) (no (unknown) (unknown) Mirena in place, (units (unknown) date) no periods. Prior unknown) to Mirena heavy periods where she had to (unknown) (no (unknown) (unknown) Note (units (unkno wn) date) unknown) (unknown) (no (unknown) (unknown) Note: (units (unkno wn) date) unknown) (unknown) (no (unknown) (unknown) Notes (units (unkno wn) date) unknown) (unknown) (no (unknown) (unknown) Obtaining and/or (units (unknown) date) reviewing unknown) separately obtained history: 4 (unknown) (no (unknown) (unknown) Ordering (units (unkno wn) date) medications, unknown) tests, or procedures: 2 (unknown) (no (unknown) (unknown) Other Menstrual (units (unknown) date) Period: Other unknown) (unknown) (no (unknown) (unknown) PFSH (units (unkno wn) date) unknown) (unknown) (no (unknown) (unknown) Packet filled (units ( unknown) date) out and given to unknown) magnetizer (unknown) (no (unknown) (unknown) Patient (units (unkno wn) date) consented to unknown) receive services via telehealth?: Yes (unknown) (no (unknown) (unknown) Patient is s 36 (units (unknown) date) year old unknown) who preesents via to discuss pelvic (unknown) (no (unknown) (unknown) Patient, (units (u nknown) date) [place] unknown) (unknown) (no (unknown) (unknown) Patient: (units (unkno wn) date) Sameera Hameed unknown) MR#: [id number] (unknown) (no (unknown) (unknown) Plan: (units (unkno wn) date) unknown) (unknown) (no (unknown) (unknown) Preparing to see (units (unknown) date) the patient, unknown) i.e., chart review, review of tests: 3 (unknown) (no (unknown) (unknown) Reason For Visit (units (unknown) date) unknown) (unknown) (no (unknown) (unknown) Right hip pain (units (unknown) date) unknown) (unknown) (no (unknown) (unknown) She has had 3 (units ( unknown) date) deliveries: 1) unknown) Induction 8#6oz. 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: pelvic (units (unknown) date) congestion unknown) (unknown) (no (unknown) (unknown) TeleHealth (units (unk nown) date) unknown) (unknown) (no (unknown) (unknown) This note may (units ( unknown) date) have been all or unknown) partially generated using voice recognition (unknown) (no (unknown) (unknown) Time Coding (units (un known) date) Minutes Spent: unknown) (must be on same date of service/appointme nt) (unknown) (no (unknown) (unknown) Time Spent (units (unk nown) date) unknown) (unknown) (no (unknown) (unknown) Tobacco + (units (unkn own) date) Substance Use unknown) (unknown) (no (unknown) (unknown) Tobacco Status (units (unknown) date) unknown) (unknown) (no (unknown) (unknown) Total Time: 13 (units (unknown) date) unknown) (unknown) (no (unknown) (unknown) U/S done 09/20 (units (unknown) date) showed a 1.9cm unknown) left ovarian cyst and pelvic congestion. 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 unknown) (unknown) (no (unknown) (unknown) congestion. (units (un known) date) unknown) (unknown) (no (unknown) (unknown) definitive (units (unk nown) date) therapy. unknown) (unknown) (no (unknown) (unknown) have occurred. (units (unknown) date) If there are any unknown) questions, please contact the Medical Records (unknown) (no (unknown) (unknown) household (units (unkn own) date) members: spouse unknown) (unknown) (no (unknown) (unknown) housing: house (units (unknown) date) unknown) (unknown) (no (unknown) (unknown) latex [LATEX] (units ( unknown) date) Allergy (Severe, unknown) Verified 03/10/21 11:06) (unknown) (no (unknown) (unknown) lives (units (unkno wn) date) independently: unknown) Yes (unknown) (no (unknown) (unknown) marital status: (units (unknown) date) unknown) (unknown) (no (unknown) (unknown) may occur. (units (unk nown) date) Occasional unknown) wrong-word or 'sound-alike' substitutions may have (unknown) (no (unknown) (unknown) new partner. (units (u nknown) date) unknown) (unknown) (no (unknown) (unknown) occurred due to (units (unknown) date) the inherent unknown) limitations of voice recognition software. Please (unknown) (no (unknown) (unknown) oxycodone (units (unkn own) date) [OXYCODONE] unknown) Adverse Reaction (Severe, Verified 03/10/21 11:06) (unknown) (no (unknown) (unknown) placenta, (units (unkn own) date) Increased BP BW unknown) 5#3oz. 3) 7#6oz (unknown) (no (unknown) (unknown) read the note (units ( unknown) date) carefully and unknown) recognize, using context, where these substitutions (unknown) (no (unknown) (unknown) second hand (units (un known) date) exposure: No unknown) (unknown) (no (unknown) (unknown) software. (units (unkn own) date) Although every unknown) effort is made to edit content, associate professor of radiology errors (unknown) (no (unknown) (unknown) substance use (units ( unknown) date) type: marijuana unknown) (unknown) (no (unknown) (unknown) telephone only?: (units (unknown) date) Patient choice unknown) Result panel 5 (unknown) (no (unknown) (unknown) (no value) (units (unk nown) date) unknown) (unknown) (no (unknown) (unknown) 11/19/22 (units (unkno wn) date) unknown) (unknown) (no (unknown) (unknown) [id number] (units (unkno wn) date) unknown) (unknown) (no (unknown) (unknown) Accompanied by: (units (unknown) date) Self / Same As unknown) Patient (unknown) (no (unknown) (unknown) Age/Sex: 36 / F (units (unknown) date) Date of Service: unknown) (unknown) (no (unknown) (unknown) Allergies (units (unkn own) date) unknown) (unknown) (no (unknown) (unknown) [facility] (units (unknown) date) Medicine unknown) (unknown) (no (unknown) (unknown) [place] (units ( unknown) date) [id number] unknown) (unknown) (no (unknown) (unknown) Attending Dr: (units ( unknown) date) Estrella Guevara MD unknown) (unknown) (no (unknown) (unknown) Chronic (units (unkno wn) date) sinusitis unknown) (unknown) (no (unknown) (unknown) : 1985 (units (unknown) date) Acct:[id number] unknown) (unknown) (no (unknown) (unknown) Dept at (units (unkno wn) date) . unknown) (unknown) (no (unknown) (unknown) Documented By: (units (unknown) date) Estrella Guevara MD unknown) 11/19/22 1443 (unknown) (no (unknown) (unknown) Draft (units (unkno wn) date) unknown) (unknown) (no (unknown) (unknown) [facility] (units (unknown) date) Office Visit unknown) (unknown) (no (unknown) (unknown) Genital herpes (units (unknown) date) unknown) (unknown) (no (unknown) (unknown) HALLUCINATIONS, (units (unknown) date) DIDN'T EAT FOR 4 unknown) DAYS (unknown) (no (unknown) (unknown) HIVES (units (unkno wn) date) unknown) (unknown) (no (unknown) (unknown) Hypothyroidism (units (unknown) date) unknown) (unknown) (no (unknown) (unknown) Intake (units (unkno wn) date) unknown) (unknown) (no (unknown) (unknown) Last Menstural (units (unknown) date) Cycle + Details unknown) (unknown) (no (unknown) (unknown) Loc: [facility] (units (unkno wn) date) unknown) (unknown) (no (unknown) (unknown) Medical History (units (unknown) date) (Reviewed unknown) 01/20/21 @ 18:22 by Sanjeev Phelps DO) (unknown) (no (unknown) (unknown) Other Menstrual (units (unknown) date) Period: Other unknown) (unknown) (no (unknown) (unknown) PFSH (units (unkno wn) date) unknown) (unknown) (no (unknown) (unknown) Patient: (units (unkno wn) date) Sameera Hameed unknown) MR#: [id number] (unknown) (no (unknown) (unknown) Reason For Visit (units (unknown) date) unknown) (unknown) (no (unknown) (unknown) Right hip pain (units (unknown) date) unknown) (unknown) (no (unknown) (unknown) Signed By: (units (unk nown) date) unknown) (unknown) (no (unknown) (unknown) Smoking Status: (units (unknown) date) Never smoker unknown) (unknown) (no (unknown) (unknown) Social History (units (unknown) date) unknown) (unknown) (no (unknown) (unknown) This note may (units ( unknown) date) have been all or unknown) partially generated using voice recognition (unknown) (no (unknown) (unknown) Tobacco + (units (unkn own) date) Substance Use unknown) (unknown) (no (unknown) (unknown) Tobacco Status (units (unknown) date) unknown) (unknown) (no (unknown) (unknown) Ulcerative (units (unk nown) date) colitis unknown) (unknown) (no (unknown) (unknown) Vaginal delivery (units (unknown) date) unknown) (unknown) (no (unknown) (unknown) Visit Reasons: (units (unknown) date) referral/discuss unknown) multiple problems 02 (unknown) (no (unknown) (unknown) alcohol intake: (units (unknown) date) never unknown) (unknown) (no (unknown) (unknown) caregiver/suppor (units (unknown) date) t person: No unknown) (unknown) (no (unknown) (unknown) have occurred. (units (unknown) date) If there are any unknown) questions, please contact the Medical Records (unknown) (no (unknown) (unknown) household (units (unkn own) date) members: spouse unknown) (unknown) (no (unknown) (unknown) housing: house (units (unknown) date) unknown) (unknown) (no (unknown) (unknown) latex [LATEX] (units ( unknown) date) Allergy (Severe, unknown) Verified 03/10/21 11:06) (unknown) (no (unknown) (unknown) lives (units (unkno wn) date) independently: unknown) Yes (unknown) (no (unknown) (unknown) marital status: (units (unknown) date) unknown) (unknown) (no (unknown) (unknown) may occur. (units (unk nown) date) Occasional unknown) wrong-word or 'sound-alike' substitutions may have (unknown) (no (unknown) (unknown) occurred due to (units (unknown) date) the inherent unknown) limitations of voice recognition software. Please (unknown) (no (unknown) (unknown) oxycodone (units (unkn own) date) [OXYCODONE] unknown) Adverse Reaction (Severe, Verified 03/10/21 11:06) (unknown) (no (unknown) (unknown) read the note (units ( unknown) date) carefully and unknown) recognize, using context, where these substitutions (unknown) (no (unknown) (unknown) second hand (units (un known) date) exposure: No unknown) (unknown) (no (unknown) (unknown) software. (units (unkn own) date) Although every unknown) effort is made to edit content, associate professor of radiology errors (unknown) (no (unknown) (unknown) substance use (units ( unknown) date) type: marijuana unknown) Result panel 6 (unknown) (no (unknown) (unknown) (no value) (units (unk nown) date) unknown) (unknown) (no (unknown) (unknown) 11/19/22 (units (unkno wn) date) unknown) (unknown) (no (unknown) (unknown) 11/19/22] (units (unkn own) date) unknown) (unknown) (no (unknown) (unknown) 05/30/21 [Rx (units (u nknown) date) Confirmed unknown) 11/19/22] (unknown) (no (unknown) (unknown) [id number] (units (unkno wn) date) unknown) (unknown) (no (unknown) (unknown) Accompanied by: (units (unknown) date) Self / Same As unknown) Patient (unknown) (no (unknown) (unknown) Age/Sex: 36 / F (units (unknown) date) Date of Service: unknown) (unknown) (no (unknown) (unknown) Allergies (units (unkn own) date) unknown) (unknown) (no (unknown) (unknown) [facility] (units (unknown) date) Medicine unknown) (unknown) (no (unknown) (unknown) [place] (units ( unknown) date) [id number] unknown) (unknown) (no (unknown) (unknown) Attending Dr: (units ( unknown) date) Estrella Guevara MD unknown) (unknown) (no (unknown) (unknown) Chronic (units (unkno wn) date) sinusitis unknown) (unknown) (no (unknown) (unknown) Confirmed (units (unkn own) date) 11/19/22] unknown) (unknown) (no (unknown) (unknown) : 1985 (units (unknown) date) Acct:[id number] unknown) (unknown) (no (unknown) (unknown) Dept at (units (unkno wn) date) . unknown) (unknown) (no (unknown) (unknown) Documented By: (units (unknown) date) Estrella Guevara MD unknown) 11/19/22 1443 (unknown) (no (unknown) (unknown) Draft (units (unkno wn) date) unknown) (unknown) (no (unknown) (unknown) Family Practice (units (unknown) date) Office Visit unknown) (unknown) (no (unknown) (unknown) Genital herpes (units (unknown) date) unknown) (unknown) (no (unknown) (unknown) HALLUCINATIONS, (units (unknown) date) DIDN'T EAT FOR 4 unknown) DAYS (unknown) (no (unknown) (unknown) HIVES (units (unkno wn) date) unknown) (unknown) (no (unknown) (unknown) Health (units (unkno wn) date) Management unknown) reviewed with patient: No (unknown) (no (unknown) (unknown) Health (units (unkno wn) date) Management unknown) (unknown) (no (unknown) (unknown) Hypothyroidism (units (unknown) date) unknown) (unknown) (no (unknown) (unknown) INTRAU SEE (units (unk nown) date) INSTRUCTIONS #1 unknown) ea 03/15/17 [Rx Confirmed 11/19/22] (unknown) (no (unknown) (unknown) Intake Note: (units (u nknown) date) unknown) (unknown) (no (unknown) (unknown) Intake (units (unkno wn) date) unknown) (unknown) (no (unknown) (unknown) Last Menstural (units (unknown) date) Cycle + Details unknown) (unknown) (no (unknown) (unknown) Loc: [facility] (units (unkno wn) date) unknown) (unknown) (no (unknown) (unknown) Medical History (units (unknown) date) (Reviewed unknown) 01/20/21 @ 18:22 by Sanjeev Phelps DO) (unknown) (no (unknown) (unknown) Medications (units (un known) date) unknown) (unknown) (no (unknown) (unknown) Other Menstrual (units (unknown) date) Period: Other unknown) (unknown) (no (unknown) (unknown) PFSH (units (unkno wn) date) unknown) (unknown) (no (unknown) (unknown) Patient: (units (unkno wn) date) Sameera Hameed J unknown) MR#: [id number] (unknown) (no (unknown) (unknown) Pt would like to (units (unknown) date) discuss ongoing unknown) issues. (unknown) (no (unknown) (unknown) Reason For Visit (units (unknown) date) unknown) (unknown) (no (unknown) (unknown) Right hip pain (units (unknown) date) unknown) (unknown) (no (unknown) (unknown) SUBCUT .COMPLEX (units (unknown) date) 03/10/21 [History unknown) Confirmed 11/19/22] (unknown) (no (unknown) (unknown) Signed By: (units (unk nown) date) unknown) (unknown) (no (unknown) (unknown) Smoking Status: (units (unknown) date) Never smoker unknown) (unknown) (no (unknown) (unknown) Social History (units (unknown) date) unknown) (unknown) (no (unknown) (unknown) This note may (units ( unknown) date) have been all or unknown) partially generated using voice recognition (unknown) (no (unknown) (unknown) Tobacco + (units (unkn own) date) Substance Use unknown) (unknown) (no (unknown) (unknown) Tobacco Status (units (unknown) date) unknown) (unknown) (no (unknown) (unknown) Ulcerative (units (unk nown) date) colitis unknown) (unknown) (no (unknown) (unknown) Vaginal delivery (units (unknown) date) unknown) (unknown) (no (unknown) (unknown) Visit Reasons: (units (unknown) date) referral/discuss unknown) multiple problems 02 (unknown) (no (unknown) (unknown) [Rx Confirmed (units ( unknown) date) 11/19/22] unknown) (unknown) (no (unknown) (unknown) acyclovir 400 mg (units (unknown) date) tablet See Rx unknown) Instructions .Route .COMPLEX #60 tabs 11/14/21 (unknown) (no (unknown) (unknown) adalimumab 40 (units ( unknown) date) mg/0.8 mL unknown) subcutaneous pen kit (Humira Pen) See Rx Instructions (unknown) (no (unknown) (unknown) alcohol intake: (units (unknown) date) never unknown) (unknown) (no (unknown) (unknown) alprazolam 0.25 (units (unknown) date) mg tablet 0.25 mg unknown) PO TID PRN anxiety #30 tabs 10/04/22 [Rx (unknown) (no (unknown) (unknown) caregiver/suppor (units (unknown) date) t person: No unknown) (unknown) (no (unknown) (unknown) fluconazole 150 (units (unknown) date) mg tablet 150 mg unknown) PO Q3D 2 doses #2 tabs 02/09/21 [Rx Confirmed (unknown) (no (unknown) (unknown) fluticasone (units (un known) date) propionate 50 unknown) mcg/actuation nasal spray,suspension 1 spray (unknown) (no (unknown) (unknown) have occurred. (units (unknown) date) If there are any unknown) questions, please contact the Medical Records (unknown) (no (unknown) (unknown) household (units (unkn own) date) members: spouse unknown) (unknown) (no (unknown) (unknown) housing: house (units (unknown) date) unknown) (unknown) (no (unknown) (unknown) hydrocortisone (units (unknown) date) 100 mg/60 mL unknown) enema 100 mg HI DAILY 01/20/21 [History Confirmed (unknown) (no (unknown) (unknown) intranasal DAILY (units (unknown) date) 01/20/21 [History unknown) Confirmed 11/19/22] (unknown) (no (unknown) (unknown) latex [LATEX] (units ( unknown) date) Allergy (Severe, unknown) Verified 11/19/22 14:47) (unknown) (no (unknown) (unknown) levonorgestrel (units (unknown) date) 21 mcg/24 hours unknown) (8 yrs) 52 mg intrauterine device (Mirena) 52 mg (unknown) (no (unknown) (unknown) levothyroxine 88 (units (unknown) date) mcg tablet unknown) (Euthyrox) See Rx Instructions .Route .COMPLEX #30 (unknown) (no (unknown) (unknown) lives (units (unkno wn) date) independently: unknown) Yes (unknown) (no (unknown) (unknown) marital status: (units (unknown) date) unknown) (unknown) (no (unknown) (unknown) may occur. (units (unk nown) date) Occasional unknown) wrong-word or 'sound-alike' substitutions may have (unknown) (no (unknown) (unknown) occurred due to (units (unknown) date) the inherent unknown) limitations of voice recognition software. Please (unknown) (no (unknown) (unknown) oxycodone (units (unkn own) date) [OXYCODONE] unknown) Adverse Reaction (Severe, Verified 11/19/22 14:47) (unknown) (no (unknown) (unknown) read the note (units ( unknown) date) carefully and unknown) recognize, using context, where these substitutions (unknown) (no (unknown) (unknown) second hand (units (un known) date) exposure: No unknown) (unknown) (no (unknown) (unknown) software. (units (unkn own) date) Although every unknown) effort is made to edit content, associate professor of radiology errors (unknown) (no (unknown) (unknown) substance use (units ( unknown) date) type: marijuana unknown) (unknown) (no (unknown) (unknown) sumatriptan (units (un known) date) succinate 100 mg unknown) tablet 100 mg PO ONCE #10 tabs 12/03/18 [Rx (unknown) (no (unknown) (unknown) tabs 02/27/22 (units ( unknown) date) [Rx Confirmed unknown) 11/19/22] (unknown) (no (unknown) (unknown) triamcinolone (units ( unknown) date) acetonide 0.1 % unknown) topical ointment 1 applic topical BID #15 grams Result panel 7 (unknown) (no (unknown) (unknown) (no value) (units (unk nown) date) unknown) (unknown) (no (unknown) (unknown) - [place], thyroid, (units (unknown) date) cbc, cmp, hormone unknown) levels (unknown) (no (unknown) (unknown) - Rheumatology (units (unknown) date) labs unknown) (unknown) (no (unknown) (unknown) 11/19/22 (units (unkno wn) date) unknown) (unknown) (no (unknown) (unknown) 11/19/22] (units (unkn own) date) unknown) (unknown) (no (unknown) (unknown) 05/30/21 [Rx (units (u nknown) date) Confirmed unknown) 11/19/22] (unknown) (no (unknown) (unknown) [id number] (units (unkno wn) date) unknown) (unknown) (no (unknown) (unknown) Accompanied by: (units (unknown) date) Self / Same As unknown) Patient (unknown) (no (unknown) (unknown) Age/Sex: 36 / F (units (unknown) date) Date of Service: unknown) (unknown) (no (unknown) (unknown) Allergies (units (unkn own) date) unknown) (unknown) (no (unknown) (unknown) Always been (units (un known) date) sensitive to cold unknown) and heat, but is significantly worse than in the (unknown) (no (unknown) (unknown) [facility] (units (unknown) date) Medicine unknown) (unknown) (no (unknown) (unknown) [facility] (units ( unknown) date) [id number] unknown) (unknown) (no (unknown) (unknown) Attending Dr: (units ( unknown) date) Estrella Guevara MD unknown) (unknown) (no (unknown) (unknown) Chronic (units (unkno wn) date) sinusitis unknown) (unknown) (no (unknown) (unknown) Confirmed (units (unkn own) date) 11/19/22] unknown) (unknown) (no (unknown) (unknown) : 1985 (units (unknown) date) Acct:[id number] unknown) (unknown) (no (unknown) (unknown) Dept at (units (unkno wn) date) . unknown) (unknown) (no (unknown) (unknown) Documented By: (units (unknown) date) Estrella Guevara MD unknown) 11/19/22 1443 (unknown) (no (unknown) (unknown) Draft (units (unkno wn) date) unknown) (unknown) (no (unknown) (unknown) Family Practice (units (unknown) date) Office Visit unknown) (unknown) (no (unknown) (unknown) Feeling hungover (units (unknown) date) every day. Used unknown) to feel better by 3pm - now constant. Ice (unknown) (no (unknown) (unknown) Genital herpes (units (unknown) date) unknown) (unknown) (no (unknown) (unknown) HALLUCINATIONS, (units (unknown) date) DIDN'T EAT FOR 4 unknown) DAYS (unknown) (no (unknown) (unknown) HIVES (units (unkno wn) date) unknown) (unknown) (no (unknown) (unknown) Health (units (unkno wn) date) Management unknown) reviewed with patient: No (unknown) (no (unknown) (unknown) Health (units (unkno wn) date) Management unknown) (unknown) (no (unknown) (unknown) Hypothyroidism (units (unknown) date) unknown) (unknown) (no (unknown) (unknown) INTRAU SEE (units (unk nown) date) INSTRUCTIONS #1 unknown) ea 03/15/17 [Rx Confirmed 11/19/22] (unknown) (no (unknown) (unknown) Intake Note: (units (u nknown) date) unknown) (unknown) (no (unknown) (unknown) Intake (units (unkno wn) date) unknown) (unknown) (no (unknown) (unknown) Last Menstural (units (unknown) date) Cycle + Details unknown) (unknown) (no (unknown) (unknown) Loc: [facility] (units (unkno wn) date) unknown) (unknown) (no (unknown) (unknown) Medical History (units (unknown) date) (Reviewed unknown) 01/20/21 @ 18:22 by Sanjeev Phelps DO) (unknown) (no (unknown) (unknown) Medications (units (un known) date) unknown) (unknown) (no (unknown) (unknown) No alcohol (units (unk nown) date) unknown) (unknown) (no (unknown) (unknown) Note (units (unkno wn) date) unknown) (unknown) (no (unknown) (unknown) Note: (units (unkno wn) date) unknown) (unknown) (no (unknown) (unknown) Notes (units (unkno wn) date) unknown) (unknown) (no (unknown) (unknown) Other Menstrual (units (unknown) date) Period: Other unknown) (unknown) (no (unknown) (unknown) PFSH (units (unkno wn) date) unknown) (unknown) (no (unknown) (unknown) Patient: (units (unkno wn) date) Sameera Hameed unknown) MR#: [id number] (unknown) (no (unknown) (unknown) Pt would like to (units (unknown) date) discuss ongoing unknown) issues. (unknown) (no (unknown) (unknown) Reason For Visit (units (unknown) date) unknown) (unknown) (no (unknown) (unknown) Right hip pain (units (unknown) date) unknown) (unknown) (no (unknown) (unknown) SUBCUT .COMPLEX (units (unknown) date) 03/10/21 [History unknown) Confirmed 11/19/22] (unknown) (no (unknown) (unknown) Signed By: (units (unk nown) date) unknown) (unknown) (no (unknown) (unknown) Smoking Status: (units (unknown) date) Never smoker unknown) (unknown) (no (unknown) (unknown) Social History (units (unknown) date) unknown) (unknown) (no (unknown) (unknown) This note may (units ( unknown) date) have been all or unknown) partially generated using voice recognition (unknown) (no (unknown) (unknown) Tobacco + (units (unkn own) date) Substance Use unknown) (unknown) (no (unknown) (unknown) Tobacco Status (units (unknown) date) unknown) (unknown) (no (unknown) (unknown) Ulcerative (units (unk nown) date) colitis unknown) (unknown) (no (unknown) (unknown) Vaginal delivery (units (unknown) date) unknown) (unknown) (no (unknown) (unknown) Visit Reasons: (units (unknown) date) referral/discuss unknown) multiple problems 02 (unknown) (no (unknown) (unknown) Xanax helping (units ( unknown) date) with sleep. unknown) Getting 8-9 hours at night. Ongoing issue since (unknown) (no (unknown) (unknown) [Rx Confirmed (units ( unknown) date) 11/19/22] unknown) (unknown) (no (unknown) (unknown) acyclovir 400 mg (units (unknown) date) tablet See Rx unknown) Instructions .Route .COMPLEX #60 tabs 11/14/21 (unknown) (no (unknown) (unknown) adalimumab 40 (units ( unknown) date) mg/0.8 mL unknown) subcutaneous pen kit (Humira Pen) See Rx Instructions (unknown) (no (unknown) (unknown) alcohol intake: (units (unknown) date) never unknown) (unknown) (no (unknown) (unknown) alprazolam 0.25 (units (unknown) date) mg tablet 0.25 mg unknown) PO TID PRN anxiety #30 tabs 10/04/22 [Rx (unknown) (no (unknown) (unknown) before started (units (unknown) date) med. unknown) (unknown) (no (unknown) (unknown) caregiver/suppor (units (unknown) date) t person: No unknown) (unknown) (no (unknown) (unknown) fluconazole 150 (units (unknown) date) mg tablet 150 mg unknown) PO Q3D 2 doses #2 tabs 02/09/21 [Rx Confirmed (unknown) (no (unknown) (unknown) fluticasone (units (un known) date) propionate 50 unknown) mcg/actuation nasal spray,suspension 1 spray (unknown) (no (unknown) (unknown) have occurred. (units (unknown) date) If there are any unknown) questions, please contact the Medical Records (unknown) (no (unknown) (unknown) household (units (unkn own) date) members: spouse unknown) (unknown) (no (unknown) (unknown) housing: house (units (unknown) date) unknown) (unknown) (no (unknown) (unknown) hydrocortisone (units (unknown) date) 100 mg/60 mL unknown) enema 100 mg HI DAILY 01/20/21 [History Confirmed (unknown) (no (unknown) (unknown) intranasal DAILY (units (unknown) date) 01/20/21 [History unknown) Confirmed 11/19/22] (unknown) (no (unknown) (unknown) latex [LATEX] (units ( unknown) date) Allergy (Severe, unknown) Verified 11/19/22 14:47) (unknown) (no (unknown) (unknown) levonorgestrel (units (unknown) date) 21 mcg/24 hours unknown) (8 yrs) 52 mg intrauterine device (Mirena) 52 mg (unknown) (no (unknown) (unknown) levothyroxine 88 (units (unknown) date) mcg tablet unknown) (Euthyrox) See Rx Instructions .Route .COMPLEX #30 (unknown) (no (unknown) (unknown) lives (units (unkno wn) date) independently: unknown) Yes (unknown) (no (unknown) (unknown) marital status: (units (unknown) date) unknown) (unknown) (no (unknown) (unknown) may occur. (units (unk nown) date) Occasional unknown) wrong-word or 'sound-alike' substitutions may have (unknown) (no (unknown) (unknown) occurred due to (units (unknown) date) the inherent unknown) limitations of voice recognition software. Please (unknown) (no (unknown) (unknown) oxycodone (units (unkn own) date) [OXYCODONE] unknown) Adverse Reaction (Severe, Verified 11/19/22 14:47) (unknown) (no (unknown) (unknown) past before. (units (u nknown) date) Pouring sweat, unknown) heating blanket. Happens randomly. (unknown) (no (unknown) (unknown) pick headaches (units (unknown) date) behind her eyes. unknown) Doesn't matter vitamins, sleep, water. (unknown) (no (unknown) (unknown) read the note (units ( unknown) date) carefully and unknown) recognize, using context, where these substitutions (unknown) (no (unknown) (unknown) second hand (units (un known) date) exposure: No unknown) (unknown) (no (unknown) (unknown) software. (units (unkn own) date) Although every unknown) effort is made to edit content, associate professor of radiology errors (unknown) (no (unknown) (unknown) substance use (units ( unknown) date) type: marijuana unknown) (unknown) (no (unknown) (unknown) sumatriptan (units (un known) date) succinate 100 mg unknown) tablet 100 mg PO ONCE #10 tabs 12/03/18 [Rx (unknown) (no (unknown) (unknown) tabs 02/27/22 (units ( unknown) date) [Rx Confirmed unknown) 11/19/22] (unknown) (no (unknown) (unknown) triamcinolone (units ( unknown) date) acetonide 0.1 % unknown) topical ointment 1 applic topical BID #15 grams Result panel 8 (unknown) (no (unknown) (unknown) (no value) (units (unk nown) date) unknown) (unknown) (no (unknown) (unknown) - [place], thyroid, (units (unknown) date) cbc, cmp, hormone unknown) levels (unknown) (no (unknown) (unknown) - Rheumatology (units (unknown) date) labs unknown) (unknown) (no (unknown) (unknown) 11/19/22 (units (unkno wn) date) unknown) (unknown) (no (unknown) (unknown) 11/19/22] (units (unkn own) date) unknown) (unknown) (no (unknown) (unknown) 05/30/21 [Rx (units (u nknown) date) Confirmed unknown) 11/19/22] (unknown) (no (unknown) (unknown) [id number] (units (unkno wn) date) unknown) (unknown) (no (unknown) (unknown) Accompanied by: (units (unknown) date) Self / Same As unknown) Patient (unknown) (no (unknown) (unknown) Age/Sex: 36 / F (units (unknown) date) Date of Service: unknown) (unknown) (no (unknown) (unknown) Allergies (units (unkn own) date) unknown) (unknown) (no (unknown) (unknown) Always been (units (un known) date) sensitive to cold unknown) and heat, but is significantly worse than in the (unknown) (no (unknown) (unknown) [facility] (units (unknown) date) Medicine unknown) (unknown) (no (unknown) (unknown) [place] (units ( unknown) date) [id number] unknown) (unknown) (no (unknown) (unknown) Attending Dr: (units ( unknown) date) Estrella Guevara MD unknown) (unknown) (no (unknown) (unknown) Bruising easily, (units (unknown) date) gets open sore unknown) all the time (unknown) (no (unknown) (unknown) Chronic (units (unkno wn) date) sinusitis unknown) (unknown) (no (unknown) (unknown) Confirmed (units (unkn own) date) 11/19/22] unknown) (unknown) (no (unknown) (unknown) : 1985 (units (unknown) date) Acct:[id number] unknown) (unknown) (no (unknown) (unknown) Dept at (units (unkno wn) date) . unknown) (unknown) (no (unknown) (unknown) Documented By: (units (unknown) date) Estrella Guevara MD unknown) 11/19/22 1443 (unknown) (no (unknown) (unknown) Draft (units (unkno wn) date) unknown) (unknown) (no (unknown) (unknown) Family Practice (units (unknown) date) Office Visit unknown) (unknown) (no (unknown) (unknown) Feeling hungover (units (unknown) date) every day. Used unknown) to feel better by 3pm - now constant. Ice (unknown) (no (unknown) (unknown) Genital herpes (units (unknown) date) unknown) (unknown) (no (unknown) (unknown) HALLUCINATIONS, (units (unknown) date) DIDN'T EAT FOR 4 unknown) DAYS (unknown) (no (unknown) (unknown) HIVES (units (unkno wn) date) unknown) (unknown) (no (unknown) (unknown) Health (units (unkno wn) date) Management unknown) reviewed with patient: No (unknown) (no (unknown) (unknown) Health (units (unkno wn) date) Management unknown) (unknown) (no (unknown) (unknown) Hypothyroidism (units (unknown) date) unknown) (unknown) (no (unknown) (unknown) INTRAU SEE (units (unk nown) date) INSTRUCTIONS #1 unknown) ea 03/15/17 [Rx Confirmed 11/19/22] (unknown) (no (unknown) (unknown) Intake Note: (units (u nknown) date) unknown) (unknown) (no (unknown) (unknown) Intake (units (unkno wn) date) unknown) (unknown) (no (unknown) (unknown) Last Menstural (units (unknown) date) Cycle + Details unknown) (unknown) (no (unknown) (unknown) Loc: [facility] (units (unkno wn) date) unknown) (unknown) (no (unknown) (unknown) Medical History (units (unknown) date) (Reviewed unknown) 01/20/21 @ 18:22 by Sanjeev Phelps DO) (unknown) (no (unknown) (unknown) Medications (units (un known) date) unknown) (unknown) (no (unknown) (unknown) No alcohol (units (unk nown) date) unknown) (unknown) (no (unknown) (unknown) No chest pain, (units (unknown) date) SOB unknown) (unknown) (no (unknown) (unknown) Note (units (unkno wn) date) unknown) (unknown) (no (unknown) (unknown) Note: (units (unkno wn) date) unknown) (unknown) (no (unknown) (unknown) Notes (units (unkno wn) date) unknown) (unknown) (no (unknown) (unknown) Other Menstrual (units (unknown) date) Period: Other unknown) (unknown) (no (unknown) (unknown) PFSH (units (unkno wn) date) unknown) (unknown) (no (unknown) (unknown) Patient: (units (unkno wn) date) ZariSameera J unknown) MR#: [id number] (unknown) (no (unknown) (unknown) Pt would like to (units (unknown) date) discuss ongoing unknown) issues. (unknown) (no (unknown) (unknown) Reason For Visit (units (unknown) date) unknown) (unknown) (no (unknown) (unknown) Right hip pain (units (unknown) date) unknown) (unknown) (no (unknown) (unknown) SUBCUT .COMPLEX (units (unknown) date) 03/10/21 [History unknown) Confirmed 11/19/22] (unknown) (no (unknown) (unknown) Signed By: (units (unk nown) date) unknown) (unknown) (no (unknown) (unknown) Smoking Status: (units (unknown) date) Never smoker unknown) (unknown) (no (unknown) (unknown) Social History (units (unknown) date) unknown) (unknown) (no (unknown) (unknown) This note may (units ( unknown) date) have been all or unknown) partially generated using voice recognition (unknown) (no (unknown) (unknown) Tobacco + (units (unkn own) date) Substance Use unknown) (unknown) (no (unknown) (unknown) Tobacco Status (units (unknown) date) unknown) (unknown) (no (unknown) (unknown) Ulcerative (units (unk nown) date) colitis unknown) (unknown) (no (unknown) (unknown) Vaginal delivery (units (unknown) date) unknown) (unknown) (no (unknown) (unknown) Visit Reasons: (units (unknown) date) referral/discuss unknown) multiple problems 02 (unknown) (no (unknown) (unknown) Xanax helping (units ( unknown) date) with sleep. unknown) Getting 8-9 hours at night. Ongoing issue since (unknown) (no (unknown) (unknown) [Rx Confirmed (units ( unknown) date) 11/19/22] unknown) (unknown) (no (unknown) (unknown) acyclovir 400 mg (units (unknown) date) tablet See Rx unknown) Instructions .Route .COMPLEX #60 tabs 11/14/21 (unknown) (no (unknown) (unknown) adalimumab 40 (units ( unknown) date) mg/0.8 mL unknown) subcutaneous pen kit (Humira Pen) See Rx Instructions (unknown) (no (unknown) (unknown) alcohol intake: (units (unknown) date) never unknown) (unknown) (no (unknown) (unknown) alprazolam 0.25 (units (unknown) date) mg tablet 0.25 mg unknown) PO TID PRN anxiety #30 tabs 10/04/22 [Rx (unknown) (no (unknown) (unknown) before started (units (unknown) date) med. unknown) (unknown) (no (unknown) (unknown) caregiver/suppor (units (unknown) date) t person: No unknown) (unknown) (no (unknown) (unknown) fluconazole 150 (units (unknown) date) mg tablet 150 mg unknown) PO Q3D 2 doses #2 tabs 02/09/21 [Rx Confirmed (unknown) (no (unknown) (unknown) fluticasone (units (un known) date) propionate 50 unknown) mcg/actuation nasal spray,suspension 1 spray (unknown) (no (unknown) (unknown) have occurred. (units (unknown) date) If there are any unknown) questions, please contact the Medical Records (unknown) (no (unknown) (unknown) household (units (unkn own) date) members: spouse unknown) (unknown) (no (unknown) (unknown) housing: house (units (unknown) date) unknown) (unknown) (no (unknown) (unknown) hydrocortisone (units (unknown) date) 100 mg/60 mL unknown) enema 100 mg HI DAILY 01/20/21 [History Confirmed (unknown) (no (unknown) (unknown) intranasal DAILY (units (unknown) date) 01/20/21 [History unknown) Confirmed 11/19/22] (unknown) (no (unknown) (unknown) latex [LATEX] (units ( unknown) date) Allergy (Severe, unknown) Verified 11/19/22 14:47) (unknown) (no (unknown) (unknown) levonorgestrel (units (unknown) date) 21 mcg/24 hours unknown) (8 yrs) 52 mg intrauterine device (Mirena) 52 mg (unknown) (no (unknown) (unknown) levothyroxine 88 (units (unknown) date) mcg tablet unknown) (Euthyrox) See Rx Instructions .Route .COMPLEX #30 (unknown) (no (unknown) (unknown) lives (units (unkno wn) date) independently: unknown) Yes (unknown) (no (unknown) (unknown) marital status: (units (unknown) date) unknown) (unknown) (no (unknown) (unknown) may occur. (units (unk nown) date) Occasional unknown) wrong-word or 'sound-alike' substitutions may have (unknown) (no (unknown) (unknown) occurred due to (units (unknown) date) the inherent unknown) limitations of voice recognition software. Please (unknown) (no (unknown) (unknown) oxycodone (units (unkn own) date) [OXYCODONE] unknown) Adverse Reaction (Severe, Verified 11/19/22 14:47) (unknown) (no (unknown) (unknown) past before. (units (u nknown) date) Pouring sweat, unknown) heating blanket. Happens randomly. (unknown) (no (unknown) (unknown) pick headaches (units (unknown) date) behind her eyes. unknown) Doesn't matter vitamins, sleep, water. (unknown) (no (unknown) (unknown) read the note (units ( unknown) date) carefully and unknown) recognize, using context, where these substitutions (unknown) (no (unknown) (unknown) second hand (units (un known) date) exposure: No unknown) (unknown) (no (unknown) (unknown) software. (units (unkn own) date) Although every unknown) effort is made to edit content, associate professor of radiology errors (unknown) (no (unknown) (unknown) substance use (units ( unknown) date) type: marijuana unknown) (unknown) (no (unknown) (unknown) sumatriptan (units (un known) date) succinate 100 mg unknown) tablet 100 mg PO ONCE #10 tabs 12/03/18 [Rx (unknown) (no (unknown) (unknown) tabs 02/27/22 (units ( unknown) date) [Rx Confirmed unknown) 11/19/22] (unknown) (no (unknown) (unknown) triamcinolone (units ( unknown) date) acetonide 0.1 % unknown) topical ointment 1 applic topical BID #15 grams Result panel 9 (unknown) (no (unknown) (unknown) (no value) (units (unk nown) date) unknown) (unknown) (no (unknown) (unknown) - [place], thyroid, (units (unknown) date) cbc, cmp, hormone unknown) levels (unknown) (no (unknown) (unknown) - Genetics (units (unk nown) date) counselor unknown) (unknown) (no (unknown) (unknown) - Rheumatology (units (unknown) date) labs unknown) (unknown) (no (unknown) (unknown) 11/19/22 (units (unkno wn) date) unknown) (unknown) (no (unknown) (unknown) 11/19/22] (units (unkn own) date) unknown) (unknown) (no (unknown) (unknown) 05/30/21 [Rx (units (u nknown) date) Confirmed unknown) 11/19/22] (unknown) (no (unknown) (unknown) [id number] (units (unkno wn) date) unknown) (unknown) (no (unknown) (unknown) Accompanied by: (units (unknown) date) Self / Same As unknown) Patient (unknown) (no (unknown) (unknown) Age/Sex: 36 / F (units (unknown) date) Date of Service: unknown) (unknown) (no (unknown) (unknown) Allergies (units (unkn own) date) unknown) (unknown) (no (unknown) (unknown) Always been (units (un known) date) sensitive to cold unknown) and heat, but is significantly worse than in the (unknown) (no (unknown) (unknown) [facility] (units (unknown) date) Medicine unknown) (unknown) (no (unknown) (unknown) [place] (units ( unknown) date) [id number] unknown) (unknown) (no (unknown) (unknown) Attending Dr: (units ( unknown) date) Estrella Guevara MD unknown) (unknown) (no (unknown) (unknown) Bruising easily, (units (unknown) date) gets open sore unknown) all the time (unknown) (no (unknown) (unknown) Chronic (units (unkno wn) date) sinusitis unknown) (unknown) (no (unknown) (unknown) Confirmed (units (unkn own) date) 11/19/22] unknown) (unknown) (no (unknown) (unknown) Crohn's. Tylenol (units (unknown) date) doesn't help. unknown) Cannabis doesn't help - dulls a little. FEels (unknown) (no (unknown) (unknown) : 1985 (units (unknown) date) Acct:[id number] unknown) (unknown) (no (unknown) (unknown) Dept at (units (unkno wn) date) . unknown) (unknown) (no (unknown) (unknown) Documented By: (units (unknown) date) Estrella Guevara MD unknown) 11/19/22 1443 (unknown) (no (unknown) (unknown) Draft (units (unkno wn) date) unknown) (unknown) (no (unknown) (unknown) Family Practice (units (unknown) date) Office Visit unknown) (unknown) (no (unknown) (unknown) Feeling hungover (units (unknown) date) every day. Used unknown) to feel better by 3pm - now constant. Ice (unknown) (no (unknown) (unknown) Genital herpes (units (unknown) date) unknown) (unknown) (no (unknown) (unknown) HALLUCINATIONS, (units (unknown) date) DIDN'T EAT FOR 4 unknown) DAYS (unknown) (no (unknown) (unknown) HIVES (units (unkno wn) date) unknown) (unknown) (no (unknown) (unknown) Health (units (unkno wn) date) Management unknown) reviewed with patient: No (unknown) (no (unknown) (unknown) Health (units (unkno wn) date) Management unknown) (unknown) (no (unknown) (unknown) Hypothyroidism (units (unknown) date) unknown) (unknown) (no (unknown) (unknown) INTRAU SEE (units (unk nown) date) INSTRUCTIONS #1 unknown) ea 03/15/17 [Rx Confirmed 11/19/22] (unknown) (no (unknown) (unknown) Intake Note: (units (u nknown) date) unknown) (unknown) (no (unknown) (unknown) Intake (units (unkno wn) date) unknown) (unknown) (no (unknown) (unknown) Last Menstural (units (unknown) date) Cycle + Details unknown) (unknown) (no (unknown) (unknown) Loc: [facility] (units (unkno wn) date) unknown) (unknown) (no (unknown) (unknown) Medical History (units (unknown) date) (Reviewed unknown) 01/20/21 @ 18:22 by Sanjeev Phelps DO) (unknown) (no (unknown) (unknown) Medications (units (un known) date) unknown) (unknown) (no (unknown) (unknown) No alcohol (units (unk nown) date) unknown) (unknown) (no (unknown) (unknown) No chest pain, (units (unknown) date) SOB unknown) (unknown) (no (unknown) (unknown) Note (units (unkno wn) date) unknown) (unknown) (no (unknown) (unknown) Note: (units (unkno wn) date) unknown) (unknown) (no (unknown) (unknown) Notes (units (unkno wn) date) unknown) (unknown) (no (unknown) (unknown) Only thing that (units (unknown) date) touches it is unknown) Aleve Migraine, isn't supposed to take with (unknown) (no (unknown) (unknown) Other Menstrual (units (unknown) date) Period: Other unknown) (unknown) (no (unknown) (unknown) PFSH (units (unkno wn) date) unknown) (unknown) (no (unknown) (unknown) Patient: (units (unkno wn) date) Sameera Hameed unknown) MR#: [id number] (unknown) (no (unknown) (unknown) Pt would like to (units (unknown) date) discuss ongoing unknown) issues. (unknown) (no (unknown) (unknown) Reason For Visit (units (unknown) date) unknown) (unknown) (no (unknown) (unknown) Right hip pain (units (unknown) date) unknown) (unknown) (no (unknown) (unknown) SUBCUT .COMPLEX (units (unknown) date) 03/10/21 [History unknown) Confirmed 11/19/22] (unknown) (no (unknown) (unknown) Signed By: (units (unk nown) date) unknown) (unknown) (no (unknown) (unknown) Smoking Status: (units (unknown) date) Never smoker unknown) (unknown) (no (unknown) (unknown) Social History (units (unknown) date) unknown) (unknown) (no (unknown) (unknown) Sumatriptan (units (un known) date) isn't helping unknown) with headaches anymore - only makes her feel sick. (unknown) (no (unknown) (unknown) This note may (units ( unknown) date) have been all or unknown) partially generated using voice recognition (unknown) (no (unknown) (unknown) Tobacco + (units (unkn own) date) Substance Use unknown) (unknown) (no (unknown) (unknown) Tobacco Status (units (unknown) date) unknown) (unknown) (no (unknown) (unknown) Ulcerative (units (unk nown) date) colitis unknown) (unknown) (no (unknown) (unknown) Vaginal delivery (units (unknown) date) unknown) (unknown) (no (unknown) (unknown) Visit Reasons: (units (unknown) date) referral/discuss unknown) multiple problems 02 (unknown) (no (unknown) (unknown) Xanax helping (units ( unknown) date) with sleep. unknown) Getting 8-9 hours at night. Ongoing issue since (unknown) (no (unknown) (unknown) [Rx Confirmed (units ( unknown) date) 11/19/22] unknown) (unknown) (no (unknown) (unknown) acyclovir 400 mg (units (unknown) date) tablet See Rx unknown) Instructions .Route .COMPLEX #60 tabs 11/14/21 (unknown) (no (unknown) (unknown) adalimumab 40 (units ( unknown) date) mg/0.8 mL unknown) subcutaneous pen kit (Humira Pen) See Rx Instructions (unknown) (no (unknown) (unknown) alcohol intake: (units (unknown) date) never unknown) (unknown) (no (unknown) (unknown) alprazolam 0.25 (units (unknown) date) mg tablet 0.25 mg unknown) PO TID PRN anxiety #30 tabs 10/04/22 [Rx (unknown) (no (unknown) (unknown) before started (units (unknown) date) med. unknown) (unknown) (no (unknown) (unknown) caregiver/suppor (units (unknown) date) t person: No unknown) (unknown) (no (unknown) (unknown) fluconazole 150 (units (unknown) date) mg tablet 150 mg unknown) PO Q3D 2 doses #2 tabs 02/09/21 [Rx Confirmed (unknown) (no (unknown) (unknown) fluticasone (units (un known) date) propionate 50 unknown) mcg/actuation nasal spray,suspension 1 spray (unknown) (no (unknown) (unknown) have occurred. (units (unknown) date) If there are any unknown) questions, please contact the Medical Records (unknown) (no (unknown) (unknown) household (units (unkn own) date) members: spouse unknown) (unknown) (no (unknown) (unknown) housing: house (units (unknown) date) unknown) (unknown) (no (unknown) (unknown) hydrocortisone (units (unknown) date) 100 mg/60 mL unknown) enema 100 mg HI DAILY 01/20/21 [History Confirmed (unknown) (no (unknown) (unknown) intranasal DAILY (units (unknown) date) 01/20/21 [History unknown) Confirmed 11/19/22] (unknown) (no (unknown) (unknown) latex [LATEX] (units ( unknown) date) Allergy (Severe, unknown) Verified 11/19/22 14:47) (unknown) (no (unknown) (unknown) levonorgestrel (units (unknown) date) 21 mcg/24 hours unknown) (8 yrs) 52 mg intrauterine device (Mirena) 52 mg (unknown) (no (unknown) (unknown) levothyroxine 88 (units (unknown) date) mcg tablet unknown) (Euthyrox) See Rx Instructions .Route .COMPLEX #30 (unknown) (no (unknown) (unknown) like ice pick (units ( unknown) date) through eyeball unknown) and goes to back of head. Feels like giant hand (unknown) (no (unknown) (unknown) lives (units (unkno wn) date) independently: unknown) Yes (unknown) (no (unknown) (unknown) marital status: (units (unknown) date) unknown) (unknown) (no (unknown) (unknown) may occur. (units (unk nown) date) Occasional unknown) wrong-word or 'sound-alike' substitutions may have (unknown) (no (unknown) (unknown) occurred due to (units (unknown) date) the inherent unknown) limitations of voice recognition software. Please (unknown) (no (unknown) (unknown) over the top of (units (unknown) date) her head. Not a unknown) classic migraine necessarily. Cluster (unknown) (no (unknown) (unknown) oxycodone (units (unkn own) date) [OXYCODONE] unknown) Adverse Reaction (Severe, Verified 11/19/22 14:47) (unknown) (no (unknown) (unknown) past before. (units (u nknown) date) Pouring sweat, unknown) heating blanket. Happens randomly. (unknown) (no (unknown) (unknown) pick headaches (units (unknown) date) behind her eyes. unknown) Doesn't matter vitamins, sleep, water. (unknown) (no (unknown) (unknown) read the note (units ( unknown) date) carefully and unknown) recognize, using context, where these substitutions (unknown) (no (unknown) (unknown) second hand (units (un known) date) exposure: No unknown) (unknown) (no (unknown) (unknown) software. (units (unkn own) date) Although every unknown) effort is made to edit content, associate professor of radiology errors (unknown) (no (unknown) (unknown) substance use (units ( unknown) date) type: marijuana unknown) (unknown) (no (unknown) (unknown) sumatriptan (units (un known) date) succinate 100 mg unknown) tablet 100 mg PO ONCE #10 tabs 12/03/18 [Rx (unknown) (no (unknown) (unknown) tabs 02/27/22 (units ( unknown) date) [Rx Confirmed unknown) 11/19/22] (unknown) (no (unknown) (unknown) triamcinolone (units ( unknown) date) acetonide 0.1 % unknown) topical ointment 1 applic topical BID #15 grams Result panel 10 (unknown) (no (unknown) (unknown) (no value) (units (unk nown) date) unknown) (unknown) (no (unknown) (unknown) - [place], thyroid, (units (unknown) date) cbc, cmp, hormone unknown) levels ([facility] [place]) (unknown) (no (unknown) (unknown) - Genetics (units (unk nown) date) counselor unknown) (unknown) (no (unknown) (unknown) - Neurology (units (un known) date) unknown) (unknown) (no (unknown) (unknown) - Rheumatology (units (unknown) date) labs unknown) (unknown) (no (unknown) (unknown) - Toradol (units (unkn own) date) injection unknown) (unknown) (no (unknown) (unknown) - Verapamil - (units ( unknown) date) [facility] [place] unknown) (unknown) (no (unknown) (unknown) 11/19/22 (units (unkno wn) date) unknown) (unknown) (no (unknown) (unknown) 11/19/22] (units (unkn own) date) unknown) (unknown) (no (unknown) (unknown) 05/30/21 [Rx (units (u nknown) date) Confirmed unknown) 11/19/22] (unknown) (no (unknown) (unknown) [id number] (units (unkno wn) date) unknown) (unknown) (no (unknown) (unknown) Accompanied by: (units (unknown) date) Self / Same As unknown) Patient (unknown) (no (unknown) (unknown) Age/Sex: 36 / F (units (unknown) date) Date of Service: unknown) (unknown) (no (unknown) (unknown) Allergies (units (unkn own) date) unknown) (unknown) (no (unknown) (unknown) Always been (units (un known) date) sensitive to cold unknown) and heat, but is significantly worse than in the (unknown) (no (unknown) (unknown) [facility] (units (unknown) date) Medicine unknown) (unknown) (no (unknown) (unknown) [place], [place] (units ( unknown) date) [id number] unknown) (unknown) (no (unknown) (unknown) Attending Dr: (units ( unknown) date) Estrella Guevara MD unknown) (unknown) (no (unknown) (unknown) Bruising easily, (units (unknown) date) gets open sore unknown) all the time (unknown) (no (unknown) (unknown) Chronic (units (unkno wn) date) sinusitis unknown) (unknown) (no (unknown) (unknown) Confirmed (units (unkn own) date) 11/19/22] unknown) (unknown) (no (unknown) (unknown) Crohn's. Tylenol (units (unknown) date) doesn't help. unknown) Cannabis doesn't help - dulls a little. FEels (unknown) (no (unknown) (unknown) : 1985 (units (unknown) date) Acct:[id number] unknown) (unknown) (no (unknown) (unknown) Dept at (units (unkno wn) date) . unknown) (unknown) (no (unknown) (unknown) Documented By: (units (unknown) date) Estrella Guevara MD unknown) 11/19/22 1443 (unknown) (no (unknown) (unknown) Draft (units (unkno wn) date) unknown) (unknown) (no (unknown) (unknown) Family Practice (units (unknown) date) Office Visit unknown) (unknown) (no (unknown) (unknown) Feeling hungover (units (unknown) date) every day. Used unknown) to feel better by 3pm - now constant. Ice (unknown) (no (unknown) (unknown) Genital herpes (units (unknown) date) unknown) (unknown) (no (unknown) (unknown) HALLUCINATIONS, (units (unknown) date) DIDN'T EAT FOR 4 unknown) DAYS (unknown) (no (unknown) (unknown) HIVES (units (unkno wn) date) unknown) (unknown) (no (unknown) (unknown) Health (units (unkno wn) date) Management unknown) reviewed with patient: No (unknown) (no (unknown) (unknown) Health (units (unkno wn) date) Management unknown) (unknown) (no (unknown) (unknown) Hypothyroidism (units (unknown) date) unknown) (unknown) (no (unknown) (unknown) INTRAU SEE (units (unk nown) date) INSTRUCTIONS #1 unknown) ea 03/15/17 [Rx Confirmed 11/19/22] (unknown) (no (unknown) (unknown) Intake Note: (units (u nknown) date) unknown) (unknown) (no (unknown) (unknown) Intake (units (unkno wn) date) unknown) (unknown) (no (unknown) (unknown) Last Menstural (units (unknown) date) Cycle + Details unknown) (unknown) (no (unknown) (unknown) Loc: [facility] (units (unkno wn) date) unknown) (unknown) (no (unknown) (unknown) Medical History (units (unknown) date) (Reviewed unknown) 01/20/21 @ 18:22 by Sanjeev Phelps DO) (unknown) (no (unknown) (unknown) Medications (units (un known) date) unknown) (unknown) (no (unknown) (unknown) No alcohol (units (unk nown) date) unknown) (unknown) (no (unknown) (unknown) No chest pain, (units (unknown) date) SOB unknown) (unknown) (no (unknown) (unknown) Note (units (unkno wn) date) unknown) (unknown) (no (unknown) (unknown) Note: (units (unkno wn) date) unknown) (unknown) (no (unknown) (unknown) Notes (units (unkno wn) date) unknown) (unknown) (no (unknown) (unknown) Only thing that (units (unknown) date) touches it is unknown) Aleve Migraine, isn't supposed to take with (unknown) (no (unknown) (unknown) Other Menstrual (units (unknown) date) Period: Other unknown) (unknown) (no (unknown) (unknown) PFSH (units (unkno wn) date) unknown) (unknown) (no (unknown) (unknown) Patient: (units (unkno wn) date) Sameera Hameed unknown) MR#: [id number] (unknown) (no (unknown) (unknown) Pt would like to (units (unknown) date) discuss ongoing unknown) issues. (unknown) (no (unknown) (unknown) Reason For Visit (units (unknown) date) unknown) (unknown) (no (unknown) (unknown) Right hip pain (units (unknown) date) unknown) (unknown) (no (unknown) (unknown) SUBCUT .COMPLEX (units (unknown) date) 03/10/21 [History unknown) Confirmed 11/19/22] (unknown) (no (unknown) (unknown) Signed By: (units (unk nown) date) unknown) (unknown) (no (unknown) (unknown) Smoking Status: (units (unknown) date) Never smoker unknown) (unknown) (no (unknown) (unknown) Social History (units (unknown) date) unknown) (unknown) (no (unknown) (unknown) Sumatriptan (units (un known) date) isn't helping unknown) with headaches anymore - only makes her feel sick. (unknown) (no (unknown) (unknown) This note may (units ( unknown) date) have been all or unknown) partially generated using voice recognition (unknown) (no (unknown) (unknown) Tobacco + (units (unkn own) date) Substance Use unknown) (unknown) (no (unknown) (unknown) Tobacco Status (units (unknown) date) unknown) (unknown) (no (unknown) (unknown) Ulcerative (units (unk nown) date) colitis unknown) (unknown) (no (unknown) (unknown) Vaginal delivery (units (unknown) date) unknown) (unknown) (no (unknown) (unknown) Visit Reasons: (units (unknown) date) referral/discuss unknown) multiple problems 02 (unknown) (no (unknown) (unknown) Xanax helping (units ( unknown) date) with sleep. unknown) Getting 8-9 hours at night. Ongoing issue since (unknown) (no (unknown) (unknown) [Rx Confirmed (units ( unknown) date) 11/19/22] unknown) (unknown) (no (unknown) (unknown) acyclovir 400 mg (units (unknown) date) tablet See Rx unknown) Instructions .Route .COMPLEX #60 tabs 11/14/21 (unknown) (no (unknown) (unknown) adalimumab 40 (units ( unknown) date) mg/0.8 mL unknown) subcutaneous pen kit (Humira Pen) See Rx Instructions (unknown) (no (unknown) (unknown) alcohol intake: (units (unknown) date) never unknown) (unknown) (no (unknown) (unknown) alprazolam 0.25 (units (unknown) date) mg tablet 0.25 mg unknown) PO TID PRN anxiety #30 tabs 10/04/22 [Rx (unknown) (no (unknown) (unknown) before started (units (unknown) date) med. unknown) (unknown) (no (unknown) (unknown) caregiver/suppor (units (unknown) date) t person: No unknown) (unknown) (no (unknown) (unknown) fluconazole 150 (units (unknown) date) mg tablet 150 mg unknown) PO Q3D 2 doses #2 tabs 02/09/21 [Rx Confirmed (unknown) (no (unknown) (unknown) fluticasone (units (un known) date) propionate 50 unknown) mcg/actuation nasal spray,suspension 1 spray (unknown) (no (unknown) (unknown) have occurred. (units (unknown) date) If there are any unknown) questions, please contact the Medical Records (unknown) (no (unknown) (unknown) household (units (unkn own) date) members: spouse unknown) (unknown) (no (unknown) (unknown) housing: house (units (unknown) date) unknown) (unknown) (no (unknown) (unknown) hydrocortisone (units (unknown) date) 100 mg/60 mL unknown) enema 100 mg HI DAILY 01/20/21 [History Confirmed (unknown) (no (unknown) (unknown) intranasal DAILY (units (unknown) date) 01/20/21 [History unknown) Confirmed 11/19/22] (unknown) (no (unknown) (unknown) latex [LATEX] (units ( unknown) date) Allergy (Severe, unknown) Verified 11/19/22 14:47) (unknown) (no (unknown) (unknown) levonorgestrel (units (unknown) date) 21 mcg/24 hours unknown) (8 yrs) 52 mg intrauterine device (Mirena) 52 mg (unknown) (no (unknown) (unknown) levothyroxine 88 (units (unknown) date) mcg tablet unknown) (Euthyrox) See Rx Instructions .Route .COMPLEX #30 (unknown) (no (unknown) (unknown) like ice pick (units ( unknown) date) through eyeball unknown) and goes to back of head. Feels like giant hand (unknown) (no (unknown) (unknown) lives (units (unkno wn) date) independently: unknown) Yes (unknown) (no (unknown) (unknown) marital status: (units (unknown) date) unknown) (unknown) (no (unknown) (unknown) may occur. (units (unk nown) date) Occasional unknown) wrong-word or 'sound-alike' substitutions may have (unknown) (no (unknown) (unknown) occurred due to (units (unknown) date) the inherent unknown) limitations of voice recognition software. Please (unknown) (no (unknown) (unknown) over the top of (units (unknown) date) her head. Not a unknown) classic migraine necessarily. Cluster (unknown) (no (unknown) (unknown) oxycodone (units (unkn own) date) [OXYCODONE] unknown) Adverse Reaction (Severe, Verified 11/19/22 14:47) (unknown) (no (unknown) (unknown) past before. (units (u nknown) date) Pouring sweat, unknown) heating blanket. Happens randomly. (unknown) (no (unknown) (unknown) pick headaches (units (unknown) date) behind her eyes. unknown) Doesn't matter vitamins, sleep, water. (unknown) (no (unknown) (unknown) read the note (units ( unknown) date) carefully and unknown) recognize, using context, where these substitutions (unknown) (no (unknown) (unknown) second hand (units (un known) date) exposure: No unknown) (unknown) (no (unknown) (unknown) software. (units (unkn own) date) Although every unknown) effort is made to edit content, associate professor of radiology errors (unknown) (no (unknown) (unknown) substance use (units ( unknown) date) type: marijuana unknown) (unknown) (no (unknown) (unknown) sumatriptan (units (un known) date) succinate 100 mg unknown) tablet 100 mg PO ONCE #10 tabs 12/03/18 [Rx (unknown) (no (unknown) (unknown) tabs 02/27/22 (units ( unknown) date) [Rx Confirmed unknown) 11/19/22] (unknown) (no (unknown) (unknown) triamcinolone (units ( unknown) date) acetonide 0.1 % unknown) topical ointment 1 applic topical BID #15 grams Result panel 11 (unknown) (no (unknown) (unknown) (no value) (units (unk nown) date) unknown) (unknown) (no (unknown) (unknown) (1) (units (unkno wn) date) Hypothyroidism: unknown) (unknown) (no (unknown) (unknown) - [place], thyroid, (units (unknown) date) cbc, cmp, hormone unknown) levels ([facility] [place]) (unknown) (no (unknown) (unknown) - Genetics (units (unk nown) date) counselor unknown) (unknown) (no (unknown) (unknown) - Neurology (units (un known) date) unknown) (unknown) (no (unknown) (unknown) - Rheumatology (units (unknown) date) labs unknown) (unknown) (no (unknown) (unknown) - Toradol (units (unkn own) date) injection unknown) (unknown) (no (unknown) (unknown) - Verapamil - (units ( unknown) date) [facility] [place] unknown) (unknown) (no (unknown) (unknown) 11/19/22 (units (unkno wn) date) unknown) (unknown) (no (unknown) (unknown) 11/19/22] (units (unkn own) date) unknown) (unknown) (no (unknown) (unknown) 05/30/21 [Rx (units (u nknown) date) Confirmed unknown) 11/19/22] (unknown) (no (unknown) (unknown) [id number] (units (unkno wn) date) unknown) (unknown) (no (unknown) (unknown) [place] Screen, IFA, (units (unknown) date) Refl Tit Briana 1 unknown) Week R68.89 - Other general symptoms and signs (unknown) (no (unknown) (unknown) Accompanied by: (units (unknown) date) Self / Same As unknown) Patient (unknown) (no (unknown) (unknown) Age/Sex: 36 / F (units (unknown) date) Date of Service: unknown) (unknown) (no (unknown) (unknown) Allergies (units (unkn own) date) unknown) (unknown) (no (unknown) (unknown) Always been (units (un known) date) sensitive to cold unknown) and heat, but is significantly worse than in the (unknown) (no (unknown) (unknown) [facility] (units (unknown) date) Medicine unknown) (unknown) (no (unknown) (unknown) [place], [place] (units ( unknown) date) [id number] unknown) (unknown) (no (unknown) (unknown) Assessment + (units (u nknown) date) Plan unknown) (unknown) (no (unknown) (unknown) Attending Dr: (units ( unknown) date) Estrella Guevara MD unknown) (unknown) (no (unknown) (unknown) Bruising easily, (units (unknown) date) gets open sore unknown) all the time (unknown) (no (unknown) (unknown) Chronic (units (unkno wn) date) sinusitis unknown) (unknown) (no (unknown) (unknown) Complete Blood (units (unknown) date) Count AUTO DIFF 1 unknown) Week - Other general symptoms and signs (unknown) (no (unknown) (unknown) Comprehensive (units ( unknown) date) Metabolic Panel 1 unknown) Week - Other general symptoms and signs (unknown) (no (unknown) (unknown) Confirmed (units (unkn own) date) 11/19/22] unknown) (unknown) (no (unknown) (unknown) Crohn's. Tylenol (units (unknown) date) doesn't help. unknown) Cannabis doesn't help - dulls a little. Feels (unknown) (no (unknown) (unknown) : 1985 (units (unknown) date) Acct:[id number] unknown) (unknown) (no (unknown) (unknown) Dept at (units (unkno wn) date) . unknown) (unknown) (no (unknown) (unknown) Documented By: (units (unknown) date) Estrella Guevara MD unknown) 11/19/22 1443 (unknown) (no (unknown) (unknown) Draft (units (unkno wn) date) unknown) (unknown) (no (unknown) (unknown) Estrogen 1 Week (units (unknown) date) - Other unknown) general symptoms and signs (unknown) (no (unknown) (unknown) Family [facility] (units (unknown) date) Office Visit unknown) (unknown) (no (unknown) (unknown) Feeling hungover (units (unknown) date) every day. Used unknown) to feel better by 3pm - now constant. Ice (unknown) (no (unknown) (unknown) Follicle (units (unkno wn) date) Stimulating unknown) Hormone 1 Week - Other general symptoms and signs (unknown) (no (unknown) (unknown) Genital herpes (units (unknown) date) unknown) (unknown) (no (unknown) (unknown) HALLUCINATIONS, (units (unknown) date) DIDN'T EAT FOR 4 unknown) DAYS (unknown) (no (unknown) (unknown) HIVES (units (unkno wn) date) unknown) (unknown) (no (unknown) (unknown) Health (units (unkno wn) date) Management unknown) reviewed with patient: No (unknown) (no (unknown) (unknown) Health (units (unkno wn) date) Management unknown) (unknown) (no (unknown) (unknown) Hypothyroidism (units (unknown) date) unknown) (unknown) (no (unknown) (unknown) INTRAU SEE (units (unk nown) date) INSTRUCTIONS #1 unknown) ea 03/15/17 [Rx Confirmed 11/19/22] (unknown) (no (unknown) (unknown) Intake Note: (units (u nknown) date) unknown) (unknown) (no (unknown) (unknown) Intake (units (unkno wn) date) unknown) (unknown) (no (unknown) (unknown) Last Menstural (units (unknown) date) Cycle + Details unknown) (unknown) (no (unknown) (unknown) Loc: [facility] (units (unkno wn) date) unknown) (unknown) (no (unknown) (unknown) Luteinizing (units (un known) date) Hormone 1 Week unknown) R68.89 - Other general symptoms and signs (unknown) (no (unknown) (unknown) Medical History (units (unknown) date) (Reviewed unknown) 01/20/21 @ 18:22 by Sanjeev Phelps DO) (unknown) (no (unknown) (unknown) Medications (units (un known) date) unknown) (unknown) (no (unknown) (unknown) No alcohol (units (unk nown) date) unknown) (unknown) (no (unknown) (unknown) No chest pain, (units (unknown) date) SOB unknown) (unknown) (no (unknown) (unknown) Note (units (unkno wn) date) unknown) (unknown) (no (unknown) (unknown) Note: (units (unkno wn) date) unknown) (unknown) (no (unknown) (unknown) Notes (units (unkno wn) date) unknown) (unknown) (no (unknown) (unknown) Only thing that (units (unknown) date) touches it is unknown) Aleve Migraine, isn't supposed to take with (unknown) (no (unknown) (unknown) Orders (units (unkno wn) date) unknown) (unknown) (no (unknown) (unknown) Orders: (units (unkno wn) date) unknown) (unknown) (no (unknown) (unknown) Other Menstrual (units (unknown) date) Period: Other unknown) (unknown) (no (unknown) (unknown) Other general (units ( unknown) date) symptoms and unknown) signs (unknown) (no (unknown) (unknown) PFSH (units (unkno wn) date) unknown) (unknown) (no (unknown) (unknown) Patient: (units (unkno wn) date) Sameera Hameed unknown) MR#: [id number] (unknown) (no (unknown) (unknown) Pt would like to (units (unknown) date) discuss ongoing unknown) issues. (unknown) (no (unknown) (unknown) Reason For Visit (units (unknown) date) unknown) (unknown) (no (unknown) (unknown) Right hip pain (units (unknown) date) unknown) (unknown) (no (unknown) (unknown) SUBCUT .COMPLEX (units (unknown) date) 03/10/21 [History unknown) Confirmed 11/19/22] (unknown) (no (unknown) (unknown) Signed By: (units (unk nown) date) unknown) (unknown) (no (unknown) (unknown) Smoking Status: (units (unknown) date) Never smoker unknown) (unknown) (no (unknown) (unknown) Social History (units (unknown) date) unknown) (unknown) (no (unknown) (unknown) Status: Chronic (units (unknown) date) unknown) (unknown) (no (unknown) (unknown) Sumatriptan (units (un known) date) isn't helping unknown) with headaches anymore - only makes her feel sick. (unknown) (no (unknown) (unknown) This note may (units ( unknown) date) have been all or unknown) partially generated using voice recognition (unknown) (no (unknown) (unknown) Thyroid (units (unkno wn) date) Stimulating unknown) Hormone 1 Week E03.9 - Hypothyroidism, unspecified, R68.89 (unknown) (no (unknown) (unknown) Tobacco + (units (unkn own) date) Substance Use unknown) (unknown) (no (unknown) (unknown) Tobacco Status (units (unknown) date) unknown) (unknown) (no (unknown) (unknown) Ulcerative (units (unk nown) date) colitis unknown) (unknown) (no (unknown) (unknown) Vaginal delivery (units (unknown) date) unknown) (unknown) (no (unknown) (unknown) Visit Reasons: (units (unknown) date) referral/discuss unknown) multiple problems 02 (unknown) (no (unknown) (unknown) Xanax helping (units ( unknown) date) with sleep. unknown) Getting 8-9 hours at night. Ongoing issue since (unknown) (no (unknown) (unknown) [Rx Confirmed (units ( unknown) date) 11/19/22] unknown) (unknown) (no (unknown) (unknown) acyclovir 400 mg (units (unknown) date) tablet See Rx unknown) Instructions .Route .COMPLEX #60 tabs 11/14/21 (unknown) (no (unknown) (unknown) adalimumab 40 (units ( unknown) date) mg/0.8 mL unknown) subcutaneous pen kit (Humira Pen) See Rx Instructions (unknown) (no (unknown) (unknown) alcohol intake: (units (unknown) date) never unknown) (unknown) (no (unknown) (unknown) alprazolam 0.25 (units (unknown) date) mg tablet 0.25 mg unknown) PO TID PRN anxiety #30 tabs 10/04/22 [Rx (unknown) (no (unknown) (unknown) before started (units (unknown) date) med. unknown) (unknown) (no (unknown) (unknown) caregiver/suppor (units (unknown) date) t person: No unknown) (unknown) (no (unknown) (unknown) fluconazole 150 (units (unknown) date) mg tablet 150 mg unknown) PO Q3D 2 doses #2 tabs 02/09/21 [Rx Confirmed (unknown) (no (unknown) (unknown) fluticasone (units (un known) date) propionate 50 unknown) mcg/actuation nasal spray,suspension 1 spray (unknown) (no (unknown) (unknown) have occurred. (units (unknown) date) If there are any unknown) questions, please contact the Medical Records (unknown) (no (unknown) (unknown) household (units (unkn own) date) members: spouse unknown) (unknown) (no (unknown) (unknown) housing: house (units (unknown) date) unknown) (unknown) (no (unknown) (unknown) hydrocortisone (units (unknown) date) 100 mg/60 mL unknown) enema 100 mg HI DAILY 01/20/21 [History Confirmed (unknown) (no (unknown) (unknown) intranasal DAILY (units (unknown) date) 01/20/21 [History unknown) Confirmed 11/19/22] (unknown) (no (unknown) (unknown) latex [LATEX] (units ( unknown) date) Allergy (Severe, unknown) Verified 11/19/22 14:47) (unknown) (no (unknown) (unknown) levonorgestrel (units (unknown) date) 21 mcg/24 hours unknown) (8 yrs) 52 mg intrauterine device (Mirena) 52 mg (unknown) (no (unknown) (unknown) levothyroxine 88 (units (unknown) date) mcg tablet unknown) (Euthyrox) See Rx Instructions .Route .COMPLEX #30 (unknown) (no (unknown) (unknown) like ice pick (units ( unknown) date) through eyeball unknown) and goes to back of head. Feels like giant hand (unknown) (no (unknown) (unknown) lives (units (unkno wn) date) independently: unknown) Yes (unknown) (no (unknown) (unknown) marital status: (units (unknown) date) unknown) (unknown) (no (unknown) (unknown) may occur. (units (unk nown) date) Occasional unknown) wrong-word or 'sound-alike' substitutions may have (unknown) (no (unknown) (unknown) occurred due to (units (unknown) date) the inherent unknown) limitations of voice recognition software. Please (unknown) (no (unknown) (unknown) over the top of (units (unknown) date) her head. Not a unknown) classic migraine necessarily. Cluster (unknown) (no (unknown) (unknown) oxycodone (units (unkn own) date) [OXYCODONE] unknown) Adverse Reaction (Severe, Verified 11/19/22 14:47) (unknown) (no (unknown) (unknown) past before. (units (u nknown) date) Pouring sweat, unknown) heating blanket. Happens randomly. (unknown) (no (unknown) (unknown) pick headaches (units (unknown) date) behind her eyes. unknown) Doesn't matter vitamins, sleep, water. (unknown) (no (unknown) (unknown) read the note (units ( unknown) date) carefully and unknown) recognize, using context, where these substitutions (unknown) (no (unknown) (unknown) second hand (units (un known) date) exposure: No unknown) (unknown) (no (unknown) (unknown) software. (units (unkn own) date) Although every unknown) effort is made to edit content, associate professor of radiology errors (unknown) (no (unknown) (unknown) substance use (units ( unknown) date) type: marijuana unknown) (unknown) (no (unknown) (unknown) sumatriptan (units (un known) date) succinate 100 mg unknown) tablet 100 mg PO ONCE #10 tabs 12/03/18 [Rx (unknown) (no (unknown) (unknown) tabs 02/27/22 (units ( unknown) date) [Rx Confirmed unknown) 11/19/22] (unknown) (no (unknown) (unknown) triamcinolone (units ( unknown) date) acetonide 0.1 % unknown) topical ointment 1 applic topical BID #15 grams Result panel 12 (unknown) (no (unknown) (unknown) (no value) (units (unk nown) date) unknown) (unknown) (no (unknown) (unknown) (1) (units (unkno wn) date) Hypothyroidism: unknown) (unknown) (no (unknown) (unknown) - [place], thyroid, (units (unknown) date) cbc, cmp, hormone unknown) levels ([facility] [place]) (unknown) (no (unknown) (unknown) - Genetics (units (unk nown) date) counselor unknown) (unknown) (no (unknown) (unknown) - Neurology (units (un known) date) unknown) (unknown) (no (unknown) (unknown) - Rheumatology (units (unknown) date) labs unknown) (unknown) (no (unknown) (unknown) - Toradol (units (unkn own) date) injection unknown) (unknown) (no (unknown) (unknown) - Verapamil - (units ( unknown) date) [facility] [place] unknown) (unknown) (no (unknown) (unknown) 11/19/22 (units (unkno wn) date) unknown) (unknown) (no (unknown) (unknown) 11/19/22] (units (unkn own) date) unknown) (unknown) (no (unknown) (unknown) 05/30/21 [Rx (units (u nknown) date) Confirmed unknown) 11/19/22] (unknown) (no (unknown) (unknown) [id number] (units (unkno wn) date) unknown) (unknown) (no (unknown) (unknown) [place] Screen, IFA, (units (unknown) date) Refl Tit Briana 1 unknown) Week - Other general symptoms and signs (unknown) (no (unknown) (unknown) Accompanied by: (units (unknown) date) Self / Same As unknown) Patient (unknown) (no (unknown) (unknown) Age/Sex: 36 / F (units (unknown) date) Date of Service: unknown) (unknown) (no (unknown) (unknown) Allergies (units (unkn own) date) unknown) (unknown) (no (unknown) (unknown) Always been (units (un known) date) sensitive to cold unknown) and heat, but is significantly worse than in the (unknown) (no (unknown) (unknown) [facility] (units (unknown) date) Medicine unknown) (unknown) (no (unknown) (unknown) [place] (units ( unknown) date) [id number] unknown) (unknown) (no (unknown) (unknown) Assessment + (units (u nknown) date) Plan unknown) (unknown) (no (unknown) (unknown) Attending Dr: (units ( unknown) date) Estrella Guevara MD unknown) (unknown) (no (unknown) (unknown) Bruising easily, (units (unknown) date) gets open sore unknown) all the time (unknown) (no (unknown) (unknown) Chronic (units (unkno wn) date) sinusitis unknown) (unknown) (no (unknown) (unknown) Complete Blood (units (unknown) date) Count AUTO DIFF 1 unknown) Week - Other general symptoms and signs (unknown) (no (unknown) (unknown) Comprehensive (units ( unknown) date) Metabolic Panel 1 unknown) Week - Other general symptoms and signs (unknown) (no (unknown) (unknown) Confirmed (units (unkn own) date) 11/19/22] unknown) (unknown) (no (unknown) (unknown) Crohn's. Tylenol (units (unknown) date) doesn't help. unknown) Cannabis doesn't help - dulls a little. Feels (unknown) (no (unknown) (unknown) : 1985 (units (unknown) date) Acct:[id number] unknown) (unknown) (no (unknown) (unknown) Dept at (units (unkno wn) date) . unknown) (unknown) (no (unknown) (unknown) Documented By: (units (unknown) date) Estrella Guevara MD unknown) 11/19/22 1443 (unknown) (no (unknown) (unknown) Draft (units (unkno wn) date) unknown) (unknown) (no (unknown) (unknown) Estrogen 1 Week (units (unknown) date) R68.89 - Other unknown) general symptoms and signs (unknown) (no (unknown) (unknown) Family Practice (units (unknown) date) Office Visit unknown) (unknown) (no (unknown) (unknown) Feeling hungover (units (unknown) date) every day. Used unknown) to feel better by 3pm - now constant. Ice (unknown) (no (unknown) (unknown) Follicle (units (unkno wn) date) Stimulating unknown) Hormone 1 Week R68.89 - Other general symptoms and signs (unknown) (no (unknown) (unknown) Genital herpes (units (unknown) date) unknown) (unknown) (no (unknown) (unknown) HALLUCINATIONS, (units (unknown) date) DIDN'T EAT FOR 4 unknown) DAYS (unknown) (no (unknown) (unknown) HIVES (units (unkno wn) date) unknown) (unknown) (no (unknown) (unknown) Health (units (unkno wn) date) Management unknown) reviewed with patient: No (unknown) (no (unknown) (unknown) Health (units (unkno wn) date) Management unknown) (unknown) (no (unknown) (unknown) Hypothyroidism (units (unknown) date) unknown) (unknown) (no (unknown) (unknown) INTRAU SEE (units (unk nown) date) INSTRUCTIONS #1 unknown) ea 03/15/17 [Rx Confirmed 02/20/23] (unknown) (no (unknown) (unknown) Intake Note: (units (u nknown) date) unknown) (unknown) (no (unknown) (unknown) Intake (units (unkno wn) date) unknown) (unknown) (no (unknown) (unknown) Last Menstural (units (unknown) date) Cycle + Details unknown) (unknown) (no (unknown) (unknown) Loc: [facility] (units (unkno wn) date) unknown) (unknown) (no (unknown) (unknown) Luteinizing (units (un known) date) Hormone 1 Week unknown) R68.89 - Other general symptoms and signs (unknown) (no (unknown) (unknown) Medical History (units (unknown) date) (Reviewed unknown) 01/20/21 @ 18:22 by Sanjeev Phelps DO) (unknown) (no (unknown) (unknown) Medications (units (un known) date) unknown) (unknown) (no (unknown) (unknown) Medications: (units (u nknown) date) unknown) (unknown) (no (unknown) (unknown) New (units (unkno wn) date) unknown) (unknown) (no (unknown) (unknown) No alcohol (units (unk nown) date) unknown) (unknown) (no (unknown) (unknown) No chest pain, (units (unknown) date) SOB unknown) (unknown) (no (unknown) (unknown) Note (units (unkno wn) date) unknown) (unknown) (no (unknown) (unknown) Note: (units (unkno wn) date) unknown) (unknown) (no (unknown) (unknown) Notes (units (unkno wn) date) unknown) (unknown) (no (unknown) (unknown) Only thing that (units (unknown) date) touches it is unknown) Aleve Migraine, isn't supposed to take with (unknown) (no (unknown) (unknown) Orders (units (unkno wn) date) unknown) (unknown) (no (unknown) (unknown) Orders: (units (unkno wn) date) unknown) (unknown) (no (unknown) (unknown) Other Menstrual (units (unknown) date) Period: Other unknown) (unknown) (no (unknown) (unknown) Other general (units ( unknown) date) symptoms and unknown) signs (unknown) (no (unknown) (unknown) PFSH (units (unkno wn) date) unknown) (unknown) (no (unknown) (unknown) Patient: (units (unkno wn) date) Sameera Hameed unknown) MR#: [id number] (unknown) (no (unknown) (unknown) Pt would like to (units (unknown) date) discuss ongoing unknown) issues. (unknown) (no (unknown) (unknown) Reason For Visit (units (unknown) date) unknown) (unknown) (no (unknown) (unknown) Right hip pain (units (unknown) date) unknown) (unknown) (no (unknown) (unknown) SUBCUT .COMPLEX (units (unknown) date) 03/10/21 [History unknown) Confirmed 11/19/22] (unknown) (no (unknown) (unknown) Signed By: (units (unk nown) date) unknown) (unknown) (no (unknown) (unknown) Smoking Status: (units (unknown) date) Never smoker unknown) (unknown) (no (unknown) (unknown) Social History (units (unknown) date) unknown) (unknown) (no (unknown) (unknown) Status: Chronic (units (unknown) date) unknown) (unknown) (no (unknown) (unknown) Sumatriptan (units (un known) date) isn't helping unknown) with headaches anymore - only makes her feel sick. (unknown) (no (unknown) (unknown) This note may (units ( unknown) date) have been all or unknown) partially generated using voice recognition (unknown) (no (unknown) (unknown) Thyroid (units (unkno wn) date) Stimulating unknown) Hormone 1 Week E03.9 - Hypothyroidism, unspecified, R68.89 (unknown) (no (unknown) (unknown) Tobacco + (units (unkn own) date) Substance Use unknown) (unknown) (no (unknown) (unknown) Tobacco Status (units (unknown) date) unknown) (unknown) (no (unknown) (unknown) Ulcerative (units (unk nown) date) colitis unknown) (unknown) (no (unknown) (unknown) Vaginal delivery (units (unknown) date) unknown) (unknown) (no (unknown) (unknown) Visit Reasons: (units (unknown) date) referral/discuss unknown) multiple problems 02 (unknown) (no (unknown) (unknown) Xanax helping (units ( unknown) date) with sleep. unknown) Getting 8-9 hours at night. Ongoing issue since (unknown) (no (unknown) (unknown) [Rx Confirmed (units ( unknown) date) 11/19/22] unknown) (unknown) (no (unknown) (unknown) acyclovir 400 mg (units (unknown) date) tablet See Rx unknown) Instructions .Route .COMPLEX #60 tabs 11/14/21 (unknown) (no (unknown) (unknown) adalimumab 40 (units ( unknown) date) mg/0.8 mL unknown) subcutaneous pen kit (Humira Pen) See Rx Instructions (unknown) (no (unknown) (unknown) alcohol intake: (units (unknown) date) never unknown) (unknown) (no (unknown) (unknown) alprazolam 0.25 (units (unknown) date) mg tablet 0.25 mg unknown) PO TID PRN anxiety #30 tabs 10/04/22 [Rx (unknown) (no (unknown) (unknown) before started (units (unknown) date) med. unknown) (unknown) (no (unknown) (unknown) caregiver/suppor (units (unknown) date) t person: No unknown) (unknown) (no (unknown) (unknown) fluconazole 150 (units (unknown) date) mg tablet 150 mg unknown) PO Q3D 2 doses #2 tabs 02/09/21 [Rx Confirmed (unknown) (no (unknown) (unknown) fluticasone (units (un known) date) propionate 50 unknown) mcg/actuation nasal spray,suspension 1 spray (unknown) (no (unknown) (unknown) have occurred. (units (unknown) date) If there are any unknown) questions, please contact the Medical Records (unknown) (no (unknown) (unknown) household (units (unkn own) date) members: spouse unknown) (unknown) (no (unknown) (unknown) housing: house (units (unknown) date) unknown) (unknown) (no (unknown) (unknown) hydrocortisone (units (unknown) date) 100 mg/60 mL unknown) enema 100 mg HI DAILY 01/20/21 [History Confirmed (unknown) (no (unknown) (unknown) intranasal DAILY (units (unknown) date) 01/20/21 [History unknown) Confirmed 11/19/22] (unknown) (no (unknown) (unknown) latex [LATEX] (units ( unknown) date) Allergy (Severe, unknown) Verified 11/19/22 14:47) (unknown) (no (unknown) (unknown) levonorgestrel (units (unknown) date) 21 mcg/24 hours unknown) (8 yrs) 52 mg intrauterine device (Mirena) 52 mg (unknown) (no (unknown) (unknown) levothyroxine 88 (units (unknown) date) mcg tablet unknown) (Euthyrox) See Rx Instructions .Route .COMPLEX #30 (unknown) (no (unknown) (unknown) like ice pick (units ( unknown) date) through eyeball unknown) and goes to back of head. Feels like giant hand (unknown) (no (unknown) (unknown) lives (units (unkno wn) date) independently: unknown) Yes (unknown) (no (unknown) (unknown) marital status: (units (unknown) date) unknown) (unknown) (no (unknown) (unknown) may occur. (units (unk nown) date) Occasional unknown) wrong-word or 'sound-alike' substitutions may have (unknown) (no (unknown) (unknown) occurred due to (units (unknown) date) the inherent unknown) limitations of voice recognition software. Please (unknown) (no (unknown) (unknown) over the top of (units (unknown) date) her head. Not a unknown) classic migraine necessarily. Cluster (unknown) (no (unknown) (unknown) oxycodone (units (unkn own) date) [OXYCODONE] unknown) Adverse Reaction (Severe, Verified 11/19/22 14:47) (unknown) (no (unknown) (unknown) past before. (units (u nknown) date) Pouring sweat, unknown) heating blanket. Happens randomly. (unknown) (no (unknown) (unknown) pick headaches (units (unknown) date) behind her eyes. unknown) Doesn't matter vitamins, sleep, water. (unknown) (no (unknown) (unknown) read the note (units ( unknown) date) carefully and unknown) recognize, using context, where these substitutions (unknown) (no (unknown) (unknown) second hand (units (un known) date) exposure: No unknown) (unknown) (no (unknown) (unknown) software. (units (unkn own) date) Although every unknown) effort is made to edit content, associate professor of radiology errors (unknown) (no (unknown) (unknown) substance use (units ( unknown) date) type: marijuana unknown) (unknown) (no (unknown) (unknown) sumatriptan (units (un known) date) succinate 100 mg unknown) tablet 100 mg PO ONCE #10 tabs 12/03/18 [Rx (unknown) (no (unknown) (unknown) tabs 02/27/22 (units ( unknown) date) [Rx Confirmed unknown) 11/19/22] (unknown) (no (unknown) (unknown) triamcinolone (units ( unknown) date) acetonide 0.1 % unknown) topical ointment 1 applic topical BID #15 grams (unknown) (no (unknown) (unknown) verapamil 40 mg (units (unknown) date) PO TID 90 tabs unknown) 2RF (unknown) (no (unknown) (unknown) verapamil 40 mg (units (unknown) date) tablet 40 mg PO unknown) TID #90 tabs 11/19/22 [Rx Confirmed 11/19/22] Result panel 13 (unknown) (no (unknown) (unknown) (no value) (units (unk nown) date) unknown) (unknown) (no (unknown) (unknown) (1) (units (unkno wn) date) Hypothyroidism: unknown) (unknown) (no (unknown) (unknown) - [place], thyroid, (units (unknown) date) cbc, cmp, hormone unknown) levels ([facility] [place]) (unknown) (no (unknown) (unknown) - Genetics (units (unk nown) date) counselor unknown) (unknown) (no (unknown) (unknown) - Neurology (units (un known) date) unknown) (unknown) (no (unknown) (unknown) - Rheumatology (units (unknown) date) labs unknown) (unknown) (no (unknown) (unknown) - Toradol (units (unkn own) date) injection unknown) (unknown) (no (unknown) (unknown) - Verapamil - (units ( unknown) date) [facility] [place] unknown) (unknown) (no (unknown) (unknown) 11/19/22 (units (unkno wn) date) unknown) (unknown) (no (unknown) (unknown) 11/19/22] (units (unkn own) date) unknown) (unknown) (no (unknown) (unknown) 05/30/21 [Rx (units (u nknown) date) Confirmed unknown) 11/19/22] (unknown) (no (unknown) (unknown) [id number] (units (unkno wn) date) unknown) (unknown) (no (unknown) (unknown) [place] Screen, IFA, (units (unknown) date) Refl Tit Rbiana 1 unknown) Week R6 - Other general symptoms and signs (unknown) (no (unknown) (unknown) Accompanied by: (units (unknown) date) Self / Same As unknown) Patient (unknown) (no (unknown) (unknown) Age/Sex: 36 / F (units (unknown) date) Date of Service: unknown) (unknown) (no (unknown) (unknown) Allergies (units (unkn own) date) unknown) (unknown) (no (unknown) (unknown) Always been (units (un known) date) sensitive to cold unknown) and heat, but is significantly worse than in the (unknown) (no (unknown) (unknown) [facility] (units (unknown) date) Medicine unknown) (unknown) (no (unknown) (unknown) [place] (units ( unknown) date) [id number] unknown) (unknown) (no (unknown) (unknown) Assessment + (units (u nknown) date) Plan unknown) (unknown) (no (unknown) (unknown) Attending Dr: (units ( unknown) date) Estrella Guevara MD unknown) (unknown) (no (unknown) (unknown) Bruising easily, (units (unknown) date) gets open sore unknown) all the time (unknown) (no (unknown) (unknown) Chronic (units (unkno wn) date) sinusitis unknown) (unknown) (no (unknown) (unknown) Complete Blood (units (unknown) date) Count AUTO DIFF 1 unknown) Week R6 - Other general symptoms and signs (unknown) (no (unknown) (unknown) Comprehensive (units ( unknown) date) Metabolic Panel 1 unknown) Week R6 - Other general symptoms and signs (unknown) (no (unknown) (unknown) Confirmed (units (unkn own) date) 11/19/22] unknown) (unknown) (no (unknown) (unknown) Crohn's. Tylenol (units (unknown) date) doesn't help. unknown) Cannabis doesn't help - dulls a little. Feels (unknown) (no (unknown) (unknown) : 1985 (units (unknown) date) Acct:[id number] unknown) (unknown) (no (unknown) (unknown) Dept at (units (unkno wn) date) . unknown) (unknown) (no (unknown) (unknown) Documented By: (units (unknown) date) Estrella Guevara MD unknown) 11/19/22 1443 (unknown) (no (unknown) (unknown) Draft (units (unkno wn) date) unknown) (unknown) (no (unknown) (unknown) Estrogen 1 Week (units (unknown) date) R6 - Other unknown) general symptoms and signs (unknown) (no (unknown) (unknown) Family Practice (units (unknown) date) Office Visit unknown) (unknown) (no (unknown) (unknown) Feeling hungover (units (unknown) date) every day. Used unknown) to feel better by 3pm - now constant. Ice (unknown) (no (unknown) (unknown) Follicle (units (unkno wn) date) Stimulating unknown) Hormone 1 Week R68 - Other general symptoms and signs (unknown) (no (unknown) (unknown) Genital herpes (units (unknown) date) unknown) (unknown) (no (unknown) (unknown) HALLUCINATIONS, (units (unknown) date) DIDN'T EAT FOR 4 unknown) DAYS (unknown) (no (unknown) (unknown) HIVES (units (unkno wn) date) unknown) (unknown) (no (unknown) (unknown) Health (units (unkno wn) date) Management unknown) reviewed with patient: No (unknown) (no (unknown) (unknown) Health (units (unkno wn) date) Management unknown) (unknown) (no (unknown) (unknown) Hypothyroidism (units (unknown) date) unknown) (unknown) (no (unknown) (unknown) INTRAU SEE (units (unk nown) date) INSTRUCTIONS #1 unknown) ea 03/15/17 [Rx Confirmed 11/19/22] (unknown) (no (unknown) (unknown) Intake Note: (units (u nknown) date) unknown) (unknown) (no (unknown) (unknown) Intake (units (unkno wn) date) unknown) (unknown) (no (unknown) (unknown) Last Menstural (units (unknown) date) Cycle + Details unknown) (unknown) (no (unknown) (unknown) Loc: [facility] (units (unkno wn) date) unknown) (unknown) (no (unknown) (unknown) Luteinizing (units (un known) date) Hormone 1 Week unknown) R68.89 - Other general symptoms and signs (unknown) (no (unknown) (unknown) Medical History (units (unknown) date) (Reviewed unknown) 01/20/21 @ 18:22 by Sanjeev Phelps DO) (unknown) (no (unknown) (unknown) Medications (units (un known) date) unknown) (unknown) (no (unknown) (unknown) Medications: (units (u nknown) date) unknown) (unknown) (no (unknown) (unknown) New (units (unkno wn) date) unknown) (unknown) (no (unknown) (unknown) No alcohol (units (unk nown) date) unknown) (unknown) (no (unknown) (unknown) No chest pain, (units (unknown) date) SOB unknown) (unknown) (no (unknown) (unknown) Note (units (unkno wn) date) unknown) (unknown) (no (unknown) (unknown) Note: (units (unkno wn) date) unknown) (unknown) (no (unknown) (unknown) Notes (units (unkno wn) date) unknown) (unknown) (no (unknown) (unknown) Only thing that (units (unknown) date) touches it is unknown) Aleve Migraine, isn't supposed to take with (unknown) (no (unknown) (unknown) Orders (units (unkno wn) date) unknown) (unknown) (no (unknown) (unknown) Orders: (units (unkno wn) date) unknown) (unknown) (no (unknown) (unknown) Other Menstrual (units (unknown) date) Period: Other unknown) (unknown) (no (unknown) (unknown) Other general (units ( unknown) date) symptoms and unknown) signs (unknown) (no (unknown) (unknown) PFSH (units (unkno wn) date) unknown) (unknown) (no (unknown) (unknown) Patient: (units (unkno wn) date) Sameera Hameed J unknown) MR#: [id number] (unknown) (no (unknown) (unknown) Pt would like to (units (unknown) date) discuss ongoing unknown) issues. (unknown) (no (unknown) (unknown) Reason For Visit (units (unknown) date) unknown) (unknown) (no (unknown) (unknown) Right hip pain (units (unknown) date) unknown) (unknown) (no (unknown) (unknown) SUBCUT .COMPLEX (units (unknown) date) 03/10/21 [History unknown) Confirmed 11/19/22] (unknown) (no (unknown) (unknown) Signed By: (units (unk nown) date) unknown) (unknown) (no (unknown) (unknown) Smoking Status: (units (unknown) date) Never smoker unknown) (unknown) (no (unknown) (unknown) Social History (units (unknown) date) unknown) (unknown) (no (unknown) (unknown) Status: Chronic (units (unknown) date) unknown) (unknown) (no (unknown) (unknown) Sumatriptan (units (un known) date) isn't helping unknown) with headaches anymore - only makes her feel sick. (unknown) (no (unknown) (unknown) This note may (units ( unknown) date) have been all or unknown) partially generated using voice recognition (unknown) (no (unknown) (unknown) Thyroid (units (unkno wn) date) Stimulating unknown) Hormone 1 Week E03.9 - Hypothyroidism, unspecified, R68.89 (unknown) (no (unknown) (unknown) Tobacco + (units (unkn own) date) Substance Use unknown) (unknown) (no (unknown) (unknown) Tobacco Status (units (unknown) date) unknown) (unknown) (no (unknown) (unknown) Ulcerative (units (unk nown) date) colitis unknown) (unknown) (no (unknown) (unknown) Vaginal delivery (units (unknown) date) unknown) (unknown) (no (unknown) (unknown) Visit Reasons: (units (unknown) date) referral/discuss unknown) multiple problems 02 (unknown) (no (unknown) (unknown) Xanax helping (units ( unknown) date) with sleep. unknown) Getting 8-9 hours at night. Ongoing issue since (unknown) (no (unknown) (unknown) [Rx Confirmed (units ( unknown) date) 11/19/22] unknown) (unknown) (no (unknown) (unknown) acyclovir 400 mg (units (unknown) date) tablet See Rx unknown) Instructions .Route .COMPLEX #60 tabs 11/14/21 (unknown) (no (unknown) (unknown) adalimumab 40 (units ( unknown) date) mg/0.8 mL unknown) subcutaneous pen kit (Humira Pen) See Rx Instructions (unknown) (no (unknown) (unknown) alcohol intake: (units (unknown) date) never unknown) (unknown) (no (unknown) (unknown) alprazolam 0.25 (units (unknown) date) mg tablet 0.25 mg unknown) PO TID PRN anxiety #30 tabs 10/04/22 [Rx (unknown) (no (unknown) (unknown) before started (units (unknown) date) med. unknown) (unknown) (no (unknown) (unknown) caregiver/suppor (units (unknown) date) t person: No unknown) (unknown) (no (unknown) (unknown) fluconazole 150 (units (unknown) date) mg tablet 150 mg unknown) PO Q3D 2 doses #2 tabs 02/09/21 [Rx Confirmed (unknown) (no (unknown) (unknown) fluticasone (units (un known) date) propionate 50 unknown) mcg/actuation nasal spray,suspension 1 spray (unknown) (no (unknown) (unknown) have occurred. (units (unknown) date) If there are any unknown) questions, please contact the Medical Records (unknown) (no (unknown) (unknown) household (units (unkn own) date) members: spouse unknown) (unknown) (no (unknown) (unknown) housing: house (units (unknown) date) unknown) (unknown) (no (unknown) (unknown) hydrocortisone (units (unknown) date) 100 mg/60 mL unknown) enema 100 mg HI DAILY 01/20/21 [History Confirmed (unknown) (no (unknown) (unknown) intranasal DAILY (units (unknown) date) 01/20/21 [History unknown) Confirmed 11/19/22] (unknown) (no (unknown) (unknown) latex [LATEX] (units ( unknown) date) Allergy (Severe, unknown) Verified 11/19/22 14:47) (unknown) (no (unknown) (unknown) levonorgestrel (units (unknown) date) 21 mcg/24 hours unknown) (8 yrs) 52 mg intrauterine device (Mirena) 52 mg (unknown) (no (unknown) (unknown) levothyroxine 88 (units (unknown) date) mcg tablet unknown) (Euthyrox) See Rx Instructions .Route .COMPLEX #30 (unknown) (no (unknown) (unknown) like ice pick (units ( unknown) date) through eyeball unknown) and goes to back of head. Feels like giant hand (unknown) (no (unknown) (unknown) lives (units (unkno wn) date) independently: unknown) Yes (unknown) (no (unknown) (unknown) marital status: (units (unknown) date) unknown) (unknown) (no (unknown) (unknown) may occur. (units (unk nown) date) Occasional unknown) wrong-word or 'sound-alike' substitutions may have (unknown) (no (unknown) (unknown) occurred due to (units (unknown) date) the inherent unknown) limitations of voice recognition software. Please (unknown) (no (unknown) (unknown) over the top of (units (unknown) date) her head. Not a unknown) classic migraine necessarily. Cluster (unknown) (no (unknown) (unknown) oxycodone (units (unkn own) date) [OXYCODONE] unknown) Adverse Reaction (Severe, Verified 11/19/22 14:47) (unknown) (no (unknown) (unknown) past before. (units (u nknown) date) Pouring sweat, unknown) heating blanket. Happens randomly. (unknown) (no (unknown) (unknown) pick headaches (units (unknown) date) behind her eyes. unknown) Doesn't matter vitamins, sleep, water. (unknown) (no (unknown) (unknown) read the note (units ( unknown) date) carefully and unknown) recognize, using context, where these substitutions (unknown) (no (unknown) (unknown) second hand (units (un known) date) exposure: No unknown) (unknown) (no (unknown) (unknown) software. (units (unkn own) date) Although every unknown) effort is made to edit content, associate professor of radiology errors (unknown) (no (unknown) (unknown) substance use (units ( unknown) date) type: marijuana unknown) (unknown) (no (unknown) (unknown) sumatriptan (units (un known) date) succinate 100 mg unknown) tablet 100 mg PO ONCE #10 tabs 12/03/18 [Rx (unknown) (no (unknown) (unknown) tabs 02/27/22 (units ( unknown) date) [Rx Confirmed unknown) 11/19/22] (unknown) (no (unknown) (unknown) triamcinolone (units ( unknown) date) acetonide 0.1 % unknown) topical ointment 1 applic topical BID #15 grams (unknown) (no (unknown) (unknown) verapamil 40 mg (units (unknown) date) PO TID 90 tabs unknown) 2RF (unknown) (no (unknown) (unknown) verapamil 40 mg (units (unknown) date) tablet 40 mg PO unknown) TID #90 tabs 11/19/22 [Rx Confirmed 11/19/22] Result panel 14 (unknown) (no (unknown) (unknown) (no value) (units (unk nown) date) unknown) (unknown) (no (unknown) (unknown) (1) (units (unkno wn) date) Hypothyroidism: unknown) (unknown) (no (unknown) (unknown) (2) Hypermobile (units (unknown) date) joints: unknown) (unknown) (no (unknown) (unknown) (3) Instability (units (unknown) date) of body unknown) temperature: (unknown) (no (unknown) (unknown) (4) Cluster (units (un known) date) headaches: unknown) (unknown) (no (unknown) (unknown) - LAKIA, thyroid, (units (unknown) date) cbc, cmp, hormone unknown) levels ([facility] [place]) (unknown) (no (unknown) (unknown) - Genetics (units (unk nown) date) counselor unknown) (unknown) (no (unknown) (unknown) - Neurology (units (un known) date) unknown) (unknown) (no (unknown) (unknown) - Rheumatology (units (unknown) date) labs unknown) (unknown) (no (unknown) (unknown) - Toradol (units (unkn own) date) injection unknown) (unknown) (no (unknown) (unknown) - Verapamil - (units ( unknown) date) [facility] [place] unknown) (unknown) (no (unknown) (unknown) -Patient does (units ( unknown) date) have evidence of unknown) joint hypermobility. She does report bruising (unknown) (no (unknown) (unknown) -Patient's (units (unk nown) date) headaches most unknown) consistent with cluster headaches. Triptans have not (unknown) (no (unknown) (unknown) -Unclear etiology (units (unknown) date) at this point. unknown) Patient did recently have labs completed (unknown) (no (unknown) (unknown) 11/19/22 (units (unkno wn) date) unknown) (unknown) (no (unknown) (unknown) 11/19/22] (units (unkn own) date) unknown) (unknown) (no (unknown) (unknown) 05/30/21 [Rx (units (u nknown) date) Confirmed unknown) 11/19/22] (unknown) (no (unknown) (unknown) [id number] (units (unkno wn) date) unknown) (unknown) (no (unknown) (unknown) LAKIA Screen, IFA, (units (unknown) date) Refl Tit Briana 1 unknown) Week R68.89 - Other general symptoms and signs (unknown) (no (unknown) (unknown) Accompanied by: (units (unknown) date) Self / Same As unknown) Patient (unknown) (no (unknown) (unknown) Age/Sex: 36 / F (units (unknown) date) Date of Service: unknown) (unknown) (no (unknown) (unknown) Allergies (units (unkn own) date) unknown) (unknown) (no (unknown) (unknown) Always been (units (un known) date) sensitive to cold unknown) and heat, but is significantly worse than in the (unknown) (no (unknown) (unknown) [facility] (units (unknown) date) Medicine unknown) (unknown) (no (unknown) (unknown) [place] (units ( unknown) date) [id number] unknown) (unknown) (no (unknown) (unknown) Assessment + Plan (units (unknown) date) unknown) (unknown) (no (unknown) (unknown) Assessment and (units (unknown) date) Plan: unknown) (unknown) (no (unknown) (unknown) Attending Dr: (units ( unknown) date) Estrella Guevara MD unknown) (unknown) (no (unknown) (unknown) Bruising easily, (units (unknown) date) gets open sore all unknown) the time (unknown) (no (unknown) (unknown) CV: Regular rate (units (unknown) date) and rhythm. No unknown) murmurs. (unknown) (no (unknown) (unknown) Chief Complaint (units (unknown) date) unknown) (unknown) (no (unknown) (unknown) Chief Complaint: (units (unknown) date) Multiple concerns. unknown) (unknown) (no (unknown) (unknown) Chronic sinusitis (units (unknown) date) unknown) (unknown) (no (unknown) (unknown) Complete Blood (units (unknown) date) Count AUTO DIFF 1 unknown) Week R68.89 - Other general symptoms and signs (unknown) (no (unknown) (unknown) Comprehensive (units ( unknown) date) Metabolic Panel 1 unknown) Week R68.89 - Other general symptoms and signs (unknown) (no (unknown) (unknown) Confirmed (units (unkn own) date) 11/19/22] unknown) (unknown) (no (unknown) (unknown) Crohn's. Tylenol (units (unknown) date) doesn't help. unknown) Cannabis doesn't help - dulls a little. Feels (unknown) (no (unknown) (unknown) : 1985 (units (unknown) date) Acct:[id number] unknown) (unknown) (no (unknown) (unknown) Dept at (units (unkno wn) date) . unknown) (unknown) (no (unknown) (unknown) Details: (units (unkno wn) date) unknown) (unknown) (no (unknown) (unknown) Documented By: (units (unknown) date) Estrella Guevara MD unknown) 11/19/22 1443 (unknown) (no (unknown) (unknown) Draft (units (unkno wn) date) unknown) (unknown) (no (unknown) (unknown) Estrogen 1 Week (units (unknown) date) R68.89 - Other unknown) general symptoms and signs (unknown) (no (unknown) (unknown) Exam Narrative (units (unknown) date) unknown) (unknown) (no (unknown) (unknown) Exam Narrative: (units (unknown) date) unknown) (unknown) (no (unknown) (unknown) Exam (units (unkno wn) date) unknown) (unknown) (no (unknown) (unknown) Extremities: (units (un known) date) Thumbs and elbows unknown) are hypermobile with extension beyond 100 degrees (unknown) (no (unknown) (unknown) Family Practice (units (unknown) date) Office Visit unknown) (unknown) (no (unknown) (unknown) Feeling hungover (units (unknown) date) every day. Used to unknown) feel better by 3pm - now constant. Ice (unknown) (no (unknown) (unknown) Follicle (units (unkno wn) date) Stimulating unknown) Hormone 1 Week R68.89 - Other general symptoms and signs (unknown) (no (unknown) (unknown) General: No acute (units (unknown) date) distress, sitting unknown) comfortably in chair, appears well. (unknown) (no (unknown) (unknown) Genital herpes (units (unknown) date) unknown) (unknown) (no (unknown) (unknown) HALLUCINATIONS, (units (unknown) date) DIDN'T EAT FOR 4 unknown) DAYS (unknown) (no (unknown) (unknown) HIVES (units (unkno wn) date) unknown) (unknown) (no (unknown) (unknown) HPI (units (unkno wn) date) unknown) (unknown) (no (unknown) (unknown) Health Management (units (unknown) date) reviewed with unknown) patient: No (unknown) (no (unknown) (unknown) Health Management (units (unknown) date) unknown) (unknown) (no (unknown) (unknown) Her (units (unkno wn) date) cash register operator did unknown) bring up potential connective tissue disorder with her (unknown) (no (unknown) (unknown) Hypothyroidism (units (unknown) date) unknown) (unknown) (no (unknown) (unknown) INTRAU SEE (units (unk nown) date) INSTRUCTIONS #1 ea unknown) 03/15/17 [Rx Confirmed 11/19/22] (unknown) (no (unknown) (unknown) Intake Note: (units (u nknown) date) unknown) (unknown) (no (unknown) (unknown) Intake (units (unkno wn) date) unknown) (unknown) (no (unknown) (unknown) Last Menstural (units (unknown) date) Cycle + Details unknown) (unknown) (no (unknown) (unknown) Loc: [facility] (units (unkno wn) date) unknown) (unknown) (no (unknown) (unknown) Luteinizing (units (un known) date) Hormone 1 Week unknown) R68.89 - Other general symptoms and signs (unknown) (no (unknown) (unknown) Medical History (units (unknown) date) (Reviewed 01/20/21 unknown) @ 18:22 by Sanjeev Phelps DO) (unknown) (no (unknown) (unknown) Medications (units (un known) date) unknown) (unknown) (no (unknown) (unknown) Medications: (units (u nknown) date) unknown) (unknown) (no (unknown) (unknown) New (units (unkno wn) date) unknown) (unknown) (no (unknown) (unknown) No alcohol (units (unk nown) date) unknown) (unknown) (no (unknown) (unknown) No chest pain, (units (unknown) date) SOB unknown) (unknown) (no (unknown) (unknown) Note (units (unkno wn) date) unknown) (unknown) (no (unknown) (unknown) Note: (units (unkno wn) date) unknown) (unknown) (no (unknown) (unknown) Notes (units (unkno wn) date) unknown) (unknown) (no (unknown) (unknown) Only thing that (units (unknown) date) touches it is unknown) Aleve Migraine, isn't supposed to take with (unknown) (no (unknown) (unknown) Orders (units (unkno wn) date) unknown) (unknown) (no (unknown) (unknown) Orders: (units (unkno wn) date) unknown) (unknown) (no (unknown) (unknown) Other Menstrual (units (unknown) date) Period: Other unknown) (unknown) (no (unknown) (unknown) Other general (units ( unknown) date) symptoms and signs unknown) (unknown) (no (unknown) (unknown) PFSH (units (unkno wn) date) unknown) (unknown) (no (unknown) (unknown) Patient: (units (unkno wn) date) Sameera Hameed unknown) MR#: [id number] (unknown) (no (unknown) (unknown) Pt would like to (units (unknown) date) discuss ongoing unknown) issues. (unknown) (no (unknown) (unknown) Reason For Visit (units (unknown) date) unknown) (unknown) (no (unknown) (unknown) Respiratory: (units (u nknown) date) Clear to unknown) auscultation bilaterally. (unknown) (no (unknown) (unknown) Right hip pain (units (unknown) date) unknown) (unknown) (no (unknown) (unknown) SUBCUT .COMPLEX (units (unknown) date) 03/10/21 [History unknown) Confirmed 11/19/22] (unknown) (no (unknown) (unknown) Signed By: (units (unk nown) date) unknown) (unknown) (no (unknown) (unknown) Skin: Relatively (units (unknown) date) normal elasticity. unknown) (unknown) (no (unknown) (unknown) Smoking Status: (units (unknown) date) Never smoker unknown) (unknown) (no (unknown) (unknown) Social History (units (unknown) date) unknown) (unknown) (no (unknown) (unknown) Status: Chronic (units (unknown) date) unknown) (unknown) (no (unknown) (unknown) Sumatriptan isn't (units (unknown) date) helping with unknown) headaches anymore - only makes her feel sick. (unknown) (no (unknown) (unknown) The patient is (units (unknown) date) here due to unknown) multiple concerns. She reports that she has extreme (unknown) (no (unknown) (unknown) The patient (units (unk nown) date) reports persistent unknown) nearly daily headaches. She states that they feel (unknown) (no (unknown) (unknown) This note may (units ( unknown) date) have been all or unknown) partially generated using voice recognition (unknown) (no (unknown) (unknown) Thyroid (units (unkno wn) date) Stimulating unknown) Hormone 1 Week E03.9 - Hypothyroidism, unspecified, R68.89 (unknown) (no (unknown) (unknown) Tobacco + (units (unkn own) date) Substance Use unknown) (unknown) (no (unknown) (unknown) Tobacco Status (units (unknown) date) unknown) (unknown) (no (unknown) (unknown) Ulcerative (units (unk nown) date) colitis unknown) (unknown) (no (unknown) (unknown) Vaginal delivery (units (unknown) date) unknown) (unknown) (no (unknown) (unknown) Visit Reasons: (units (unknown) date) referral/discuss unknown) multiple problems 02 (unknown) (no (unknown) (unknown) Xanax helping (units ( unknown) date) with sleep. unknown) Getting 8-9 hours at night. Ongoing issue since (unknown) (no (unknown) (unknown) [Rx Confirmed (units ( unknown) date) 11/19/22] unknown) (unknown) (no (unknown) (unknown) acyclovir 400 mg (units (unknown) date) tablet See Rx unknown) Instructions .Route .COMPLEX #60 tabs 11/14/21 (unknown) (no (unknown) (unknown) adalimumab 40 (units ( unknown) date) mg/0.8 mL unknown) subcutaneous pen kit (Humira Pen) See Rx Instructions (unknown) (no (unknown) (unknown) alcohol and she (units (unknown) date) is getting 8 to 9 unknown) hours of sleep on per night on average. (unknown) (no (unknown) (unknown) alcohol intake: (units (unknown) date) never unknown) (unknown) (no (unknown) (unknown) alprazolam 0.25 (units (unknown) date) mg tablet 0.25 mg unknown) PO TID PRN anxiety #30 tabs 10/04/22 [Rx (unknown) (no (unknown) (unknown) also feels 'hung (units (unknown) date) over' all the unknown) time. She used to have this sensation, but would (unknown) (no (unknown) (unknown) also placed for (units (unknown) date) additional unknown) recommendations in the event that verapamil is not (unknown) (no (unknown) (unknown) and has to put a (units (unknown) date) heating blanket on unknown) her and she can still be chilled even with (unknown) (no (unknown) (unknown) at the elbows. (units (unknown) date) unknown) (unknown) (no (unknown) (unknown) been all that (units ( unknown) date) helpful. Toradol unknown) injection provided today to hopefully break (unknown) (no (unknown) (unknown) before started (units (unknown) date) med. 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 unknown) Prescription verapamil prescribed for preventative (unknown) (no (unknown) (unknown) days than not. (units (unknown) date) unknown) (unknown) (no (unknown) (unknown) did start Xanax (units (unknown) date) to help with her unknown) sleep, but states that this sensation was (unknown) (no (unknown) (unknown) edge off at all. (units (unknown) date) She states that unknown) either feels like an ice pick through her left (unknown) (no (unknown) (unknown) effective. (units (unk nown) date) Patient will unknown) follow up in 6 weeks. (unknown) (no (unknown) (unknown) eye, that goes (units (unknown) date) through the back unknown) of her head or feels like there is a giant hand (unknown) (no (unknown) (unknown) feel better by 3 (units (unknown) date) PM, but now feels unknown) it is more constant. She does not seem to (unknown) (no (unknown) (unknown) fluconazole 150 (units (unknown) date) mg tablet 150 mg unknown) PO Q3D 2 doses #2 tabs 02/09/21 [Rx Confirmed (unknown) (no (unknown) (unknown) fluticasone (units (un known) date) propionate 50 unknown) mcg/actuation nasal spray,suspension 1 spray (unknown) (no (unknown) (unknown) has taken a (units (un known) date) prolonged period unknown) of time. Other times, she is extraordinarily cold (unknown) (no (unknown) (unknown) have occurred. If (units (unknown) date) there are any unknown) questions, please contact the Medical Records (unknown) (no (unknown) (unknown) household (units (unkn own) date) members: spouse unknown) (unknown) (no (unknown) (unknown) housing: house (units (unknown) date) unknown) (unknown) (no (unknown) (unknown) hydrocortisone (units (unknown) date) 100 mg/60 mL enema unknown) 100 mg HI DAILY 01/20/21 [History Confirmed (unknown) (no (unknown) (unknown) hypermobility. 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 At times, she is pouring sweat and able (unknown) (no (unknown) (unknown) latex [LATEX] (units ( unknown) date) Allergy (Severe, unknown) Verified 11/19/22 14:47) (unknown) (no (unknown) (unknown) levonorgestrel 21 (units (unknown) date) mcg/24 hours (8 unknown) yrs) 52 mg intrauterine device (Mirena) 52 mg (unknown) (no (unknown) (unknown) levothyroxine 88 (units (unknown) date) mcg tablet unknown) (Euthyrox) See Rx Instructions .Route .COMPLEX #30 (unknown) (no (unknown) (unknown) like ice pick (units ( unknown) date) through eyeball unknown) and goes to back of head. Feels like giant hand (unknown) (no (unknown) (unknown) lives (units (unkno wn) date) independently: Yes unknown) (unknown) (no (unknown) (unknown) marital status: (units (unknown) date) unknown) (unknown) (no (unknown) (unknown) matter if she (units (u nknown) date) takes vitamins, unknown) gets extra sleep or is drinking water. The patient (unknown) (no (unknown) (unknown) may occur. (units (unk nown) date) Occasional unknown) wrong-word or 'sound-alike' substitutions may have (unknown) (no (unknown) (unknown) measures due to (units (unknown) date) frequency of unknown) headaches that are occurring. Referral to neurology (unknown) (no (unknown) (unknown) not help at all. (units (unknown) date) She unknown) takes?Aleve?migrai ne sparingly as she is not supposed to (unknown) (no (unknown) (unknown) occurred due to (units (unknown) date) the inherent unknown) limitations of voice recognition software. Please (unknown) (no (unknown) (unknown) occurring prior (units (unknown) date) to that time. She unknown) does not drink any significant amounts of (unknown) (no (unknown) (unknown) occurring to see (units (unknown) date) if we can come up unknown) with any sort of pattern that might not be (unknown) (no (unknown) (unknown) on the top of her (units (unknown) date) head squeezing unknown) very hard. She is getting these headaches more (unknown) (no (unknown) (unknown) ordered today as (units (unknown) date) below. Recommend unknown) patient try to keep track of when symptoms are (unknown) (no (unknown) (unknown) over the top of (units (unknown) date) her head. Not a unknown) classic migraine necessarily. Cluster (unknown) (no (unknown) (unknown) overtly evident (units (unknown) date) without tracking. unknown) We will follow up with labs and determine next (unknown) (no (unknown) (unknown) oxycodone (units (unkn own) date) [OXYCODONE] unknown) Adverse Reaction (Severe, Verified 11/19/22 14:47) (unknown) (no (unknown) (unknown) past before. (units (u nknown) date) Pouring sweat, unknown) heating blanket. Happens randomly. (unknown) (no (unknown) (unknown) pick headaches (units (unknown) date) behind her eyes. unknown) Doesn't matter vitamins, sleep, water. (unknown) (no (unknown) (unknown) read the note (units ( unknown) date) carefully and unknown) recognize, using context, where these substitutions (unknown) (no (unknown) (unknown) recently due to (units (unknown) date) recurrent unknown) fractures when she was younger and joint (unknown) (no (unknown) (unknown) second hand (units (un known) date) exposure: No unknown) (unknown) (no (unknown) (unknown) significant (units (un known) date) elasticity issues unknown) noted on the skin today. Patient is quite (unknown) (no (unknown) (unknown) slightly different (units (unknown) date) than her classic unknown) migraines that she is used to having. Taking (unknown) (no (unknown) (unknown) software. (units (unkn own) date) Although every unknown) effort is made to edit content, associate professor of radiology errors (unknown) (no (unknown) (unknown) steps from there. (units (unknown) date) unknown) (unknown) (no (unknown) (unknown) substance use (units ( unknown) date) type: marijuana unknown) (unknown) (no (unknown) (unknown) sumatriptan (units (un known) date) succinate 100 mg unknown) tablet 100 mg PO ONCE #10 tabs 12/03/18 [Rx (unknown) (no (unknown) (unknown) syndrome. 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 She unknown) has always been sensitive to cold and heat, but it (unknown) (no (unknown) (unknown) the sumatriptan (units (unknown) date) does not seem to unknown) help, it only makes her feel sick. Tylenol does (unknown) (no (unknown) (unknown) this. It seems to (units (unknown) date) happen completely unknown) randomly without any triggers. The patient (unknown) (no (unknown) (unknown) through (units (unkno wn) date) rheumatology. unknown) Records of which are requested today. Additional labs (unknown) (no (unknown) (unknown) to cool down. She (units (unknown) date) has had to drench unknown) herself in water to cool off and even then (unknown) (no (unknown) (unknown) triamcinolone (units ( unknown) date) acetonide 0.1 % unknown) topical ointment 1 applic topical BID #15 grams (unknown) (no (unknown) (unknown) verapamil 40 mg (units (unknown) date) PO TID 90 tabs 2RF unknown) (unknown) (no (unknown) (unknown) verapamil 40 mg (units (unknown) date) tablet 40 mg PO unknown) TID #90 tabs 11/19/22 [Rx Confirmed 11/19/22] (unknown) (no (unknown) (unknown) very easily and (units (unknown) date) having very unknown) sensitive/fragile skin. Overall, although no (unknown) (no (unknown) (unknown) well. Referral (units (unknown) date) for genetics unknown) counseling placed today to assess further. Result panel 15 (unknown) (no (unknown) (unknown) (no value) (units (unk nown) date) unknown) (unknown) (no (unknown) (unknown) (1) (units (unkno wn) date) Hypothyroidism: unknown) (unknown) (no (unknown) (unknown) (2) Hypermobile (units (unknown) date) joints: unknown) (unknown) (no (unknown) (unknown) (3) Instability (units (unknown) date) of body unknown) temperature: (unknown) (no (unknown) (unknown) (4) Cluster (units (un known) date) headaches: unknown) (unknown) (no (unknown) (unknown) -Patient does (units ( unknown) date) have evidence of unknown) joint hypermobility. She does report bruising (unknown) (no (unknown) (unknown) -Patient's (units (unk nown) date) headaches most unknown) consistent with cluster headaches. Triptans have not (unknown) (no (unknown) (unknown) -Unclear etiology (units (unknown) date) at this point. unknown) Patient did recently have labs completed (unknown) (no (unknown) (unknown) 11/19/22 (units (unkno wn) date) unknown) (unknown) (no (unknown) (unknown) 11/19/22] (units (unkn own) date) unknown) (unknown) (no (unknown) (unknown) 11/20/22 0951 (units ( unknown) date) unknown) (unknown) (no (unknown) (unknown) 05/30/21 [Rx (units (u nknown) date) Confirmed unknown) 11/19/22] (unknown) (no (unknown) (unknown) [id number] (units (unkno wn) date) unknown) (unknown) (no (unknown) (unknown) LAKIA Screen, IFA, (units (unknown) date) Refl Tit Briana 1 unknown) Week R68.89 - Other general symptoms and signs (unknown) (no (unknown) (unknown) Accompanied by: (units (unknown) date) Self / Same As unknown) Patient (unknown) (no (unknown) (unknown) Age/Sex: 36 / F (units (unknown) date) Date of Service: unknown) (unknown) (no (unknown) (unknown) Allergies (units (unkn own) date) unknown) (unknown) (no (unknown) (unknown) [facility] (units (unknown) date) Medicine unknown) (unknown) (no (unknown) (unknown) [place] (units ( unknown) date) [id number] unknown) (unknown) (no (unknown) (unknown) Assessment + Plan (units (unknown) date) unknown) (unknown) (no (unknown) (unknown) Assessment and (units (unknown) date) Plan: unknown) (unknown) (no (unknown) (unknown) Attending Dr: (units ( unknown) date) Estrella Guevara MD unknown) (unknown) (no (unknown) (unknown) CV: Regular rate (units (unknown) date) and rhythm. No unknown) murmurs. (unknown) (no (unknown) (unknown) Chief Complaint (units (unknown) date) unknown) (unknown) (no (unknown) (unknown) Chief Complaint: (units (unknown) date) Multiple concerns. unknown) (unknown) (no (unknown) (unknown) Chronic sinusitis (units (unknown) date) unknown) (unknown) (no (unknown) (unknown) Complete Blood (units (unknown) date) Count AUTO DIFF 1 unknown) Week R6 - Other general symptoms and signs (unknown) (no (unknown) (unknown) Comprehensive (units ( unknown) date) Metabolic Panel 1 unknown) Week - Other general symptoms and signs (unknown) (no (unknown) (unknown) Confirmed (units (unkn own) date) 11/19/22] unknown) (unknown) (no (unknown) (unknown) Counseling and (units (unknown) date) educating the unknown) patient/family/car egiver: 15 (unknown) (no (unknown) (unknown) : 1985 (units (unknown) date) Acct:[id number] unknown) (unknown) (no (unknown) (unknown) Dept at (units (unkno wn) date) . unknown) (unknown) (no (unknown) (unknown) Details: (units (unkno wn) date) unknown) (unknown) (no (unknown) (unknown) Documented By: (units (unknown) date) Estrella Guevara MD unknown) 11/19/22 1443 (unknown) (no (unknown) (unknown) Documenting (units (un known) date) clinical unknown) information in EHR/Medical record: 5 (unknown) (no (unknown) (unknown) Estrogen 1 Week (units (unknown) date) - Other unknown) general symptoms and signs (unknown) (no (unknown) (unknown) Exam Narrative (units (unknown) date) unknown) (unknown) (no (unknown) (unknown) Exam Narrative: (units (unknown) date) unknown) (unknown) (no (unknown) (unknown) Exam (units (unkno wn) date) unknown) (unknown) (no (unknown) (unknown) Extremities: (units (un known) date) Thumbs and elbows unknown) are hypermobile with extension beyond 100 degrees (unknown) (no (unknown) (unknown) Family Practice (units (unknown) date) Office Visit unknown) (unknown) (no (unknown) (unknown) Follicle (units (unkno wn) date) Stimulating unknown) Hormone 1 Week R68.89 - Other general symptoms and signs (unknown) (no (unknown) (unknown) General: No acute (units (unknown) date) distress, sitting unknown) comfortably in chair, appears well. (unknown) (no (unknown) (unknown) Genital herpes (units (unknown) date) unknown) (unknown) (no (unknown) (unknown) HALLUCINATIONS, (units (unknown) date) DIDN'T EAT FOR 4 unknown) DAYS (unknown) (no (unknown) (unknown) HIVES (units (unkno wn) date) unknown) (unknown) (no (unknown) (unknown) HPI (units (unkno wn) date) unknown) (unknown) (no (unknown) (unknown) Headache (units (unkno wn) date) chronicity unknown) pattern: chronic headache Intractability: (unknown) (no (unknown) (unknown) Health Management (units (unknown) date) reviewed with unknown) patient: No (unknown) (no (unknown) (unknown) Health Management (units (unknown) date) unknown) (unknown) (no (unknown) (unknown) Her (units (unkno wn) date) cash register operator did unknown) bring up potential connective tissue disorder with her (unknown) (no (unknown) (unknown) Hypothyroidism (units (unknown) date) type: acquired unknown) Qualified Code(s): E03.9 (unknown) (no (unknown) (unknown) Hypothyroidism (units (unknown) date) unknown) (unknown) (no (unknown) (unknown) Hypothyroidism, (units (unknown) date) unspecified unknown) (unknown) (no (unknown) (unknown) INTRAU SEE (units (unk nown) date) INSTRUCTIONS #1 ea unknown) 03/15/17 [Rx Confirmed 11/19/22] (unknown) (no (unknown) (unknown) Intake Note: (units (u nknown) date) unknown) (unknown) (no (unknown) (unknown) Intake (units (unkno wn) date) unknown) (unknown) (no (unknown) (unknown) Last Menstural (units (unknown) date) Cycle + Details unknown) (unknown) (no (unknown) (unknown) Loc: [facility] (units (unkno wn) date) unknown) (unknown) (no (unknown) (unknown) Luteinizing (units (un known) date) Hormone 1 Week unknown) R68.89 - Other general symptoms and signs (unknown) (no (unknown) (unknown) Medical History (units (unknown) date) (Reviewed 01/20/21 unknown) @ 18:22 by Sanjeev Phelps DO) (unknown) (no (unknown) (unknown) Medications (units (un known) date) unknown) (unknown) (no (unknown) (unknown) Medications: (units (u nknown) date) unknown) (unknown) (no (unknown) (unknown) New (units (unkno wn) date) unknown) (unknown) (no (unknown) (unknown) Obtaining and/or (units (unknown) date) reviewing unknown) separately obtained history: 13 (unknown) (no (unknown) (unknown) Orders (units (unkno wn) date) unknown) (unknown) (no (unknown) (unknown) Orders: (units (unkno wn) date) unknown) (unknown) (no (unknown) (unknown) Other Menstrual (units (unknown) date) Period: Other unknown) (unknown) (no (unknown) (unknown) Other general (units ( unknown) date) symptoms and signs unknown) (unknown) (no (unknown) (unknown) PFSH (units (unkno wn) date) unknown) (unknown) (no (unknown) (unknown) Patient: (units (unkno wn) date) Sameera Hameed unknown) MR#: [id number] (unknown) (no (unknown) (unknown) Performing a (units (u nknown) date) medically unknown) appropriate exam and/or evaluation: 3 (unknown) (no (unknown) (unknown) Preparing to see (units (unknown) date) the patient, i.e., unknown) chart review, review of tests: 5 (unknown) (no (unknown) (unknown) Pt would like to (units (unknown) date) discuss ongoing unknown) issues. (unknown) (no (unknown) (unknown) Qualifiers: (units (un known) date) unknown) (unknown) (no (unknown) (unknown) Reason For Visit (units (unknown) date) unknown) (unknown) (no (unknown) (unknown) Respiratory: (units (u nknown) date) Clear to unknown) auscultation bilaterally. (unknown) (no (unknown) (unknown) Right hip pain (units (unknown) date) unknown) (unknown) (no (unknown) (unknown) SUBCUT .COMPLEX (units (unknown) date) 03/10/21 [History unknown) Confirmed 11/19/22] (unknown) (no (unknown) (unknown) Signed By: (units (unk nown) date) <Electronically unknown) signed by Estrella Guevara MD> (unknown) (no (unknown) (unknown) Signed (units (unkno wn) date) unknown) (unknown) (no (unknown) (unknown) Skin: Relatively (units (unknown) date) normal elasticity. unknown) (unknown) (no (unknown) (unknown) Smoking Status: (units (unknown) date) Never smoker unknown) (unknown) (no (unknown) (unknown) Social History (units (unknown) date) unknown) (unknown) (no (unknown) (unknown) Status: Chronic (units (unknown) date) unknown) (unknown) (no (unknown) (unknown) The patient is (units (unknown) date) here due to unknown) multiple concerns. She reports that she has extreme (unknown) (no (unknown) (unknown) The patient (units (unk nown) date) reports persistent unknown) nearly daily headaches. She states that they feel (unknown) (no (unknown) (unknown) This note may (units ( unknown) date) have been all or unknown) partially generated using voice recognition (unknown) (no (unknown) (unknown) Thyroid (units (unkno wn) date) Stimulating unknown) Hormone 1 Week E03.9 - Hypothyroidism, unspecified, R68.89 (unknown) (no (unknown) (unknown) Time Coding (units (un known) date) Minutes Spent: unknown) (must be on same date of service/appointmen t) (unknown) (no (unknown) (unknown) Time Spent (units (unk nown) date) unknown) (unknown) (no (unknown) (unknown) Tobacco + (units (unkn own) date) Substance Use unknown) (unknown) (no (unknown) (unknown) Tobacco Status (units (unknown) date) unknown) (unknown) (no (unknown) (unknown) Total Time: 40 (units (unknown) date) unknown) (unknown) (no (unknown) (unknown) Ulcerative (units (unk nown) date) colitis unknown) (unknown) (no (unknown) (unknown) Vaginal delivery (units (unknown) date) unknown) (unknown) (no (unknown) (unknown) Visit Reasons: (units (unknown) date) referral/discuss unknown) multiple problems 02 (unknown) (no (unknown) (unknown) [Rx Confirmed (units ( unknown) date) 11/19/22] unknown) (unknown) (no (unknown) (unknown) acyclovir 400 mg (units (unknown) date) tablet See Rx unknown) Instructions .Route .COMPLEX #60 tabs 11/14/21 (unknown) (no (unknown) (unknown) adalimumab 40 (units ( unknown) date) mg/0.8 mL unknown) subcutaneous pen kit (Humira Pen) See Rx Instructions (unknown) (no (unknown) (unknown) alcohol and she (units (unknown) date) is getting 8 to 9 unknown) hours of sleep on per night on average. (unknown) (no (unknown) (unknown) alcohol intake: (units (unknown) date) never unknown) (unknown) (no (unknown) (unknown) alprazolam 0.25 (units (unknown) date) mg tablet 0.25 mg unknown) PO TID PRN anxiety #30 tabs 10/04/22 [Rx (unknown) (no (unknown) (unknown) also feels 'hung (units (unknown) date) over' all the unknown) time. She used to have this sensation, but would (unknown) (no (unknown) (unknown) also placed for (units (unknown) date) additional unknown) recommendations in the event that verapamil is not (unknown) (no (unknown) (unknown) and has to put a (units (unknown) date) heating blanket on unknown) her and she can still be chilled even with (unknown) (no (unknown) (unknown) at the elbows. (units (unknown) date) unknown) (unknown) (no (unknown) (unknown) been all that (units ( unknown) date) helpful. 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 unknown) Prescription verapamil prescribed for preventative (unknown) (no (unknown) (unknown) days than not. (units (unknown) date) unknown) (unknown) (no (unknown) (unknown) did start Xanax (units (unknown) date) to help with her unknown) sleep, but states that this sensation was (unknown) (no (unknown) (unknown) edge off at all. (units (unknown) date) She states that unknown) either feels like an ice pick through her left (unknown) (no (unknown) (unknown) effective. (units (unk nown) date) Patient will unknown) follow up in 6 weeks. (unknown) (no (unknown) (unknown) eye, that goes (units (unknown) date) through the back unknown) of her head or feels like there is a giant hand (unknown) (no (unknown) (unknown) feel better by 3 (units (unknown) date) PM, but now feels unknown) it is more constant. She does not seem to (unknown) (no (unknown) (unknown) fluconazole 150 (units (unknown) date) mg tablet 150 mg unknown) PO Q3D 2 doses #2 tabs 02/09/21 [Rx Confirmed (unknown) (no (unknown) (unknown) fluticasone (units (un known) date) propionate 50 unknown) mcg/actuation nasal spray,suspension 1 spray (unknown) (no (unknown) (unknown) has taken a (units (un known) date) prolonged period unknown) of time. Other times, she is extraordinarily cold (unknown) (no (unknown) (unknown) have occurred. If (units (unknown) date) there are any unknown) questions, please contact the Medical Records (unknown) (no (unknown) (unknown) household (units (unkn own) date) members: spouse unknown) (unknown) (no (unknown) (unknown) housing: house (units (unknown) date) unknown) (unknown) (no (unknown) (unknown) hydrocortisone (units (unknown) date) 100 mg/60 mL enema unknown) 100 mg HI DAILY 01/20/21 [History Confirmed (unknown) (no (unknown) (unknown) hypermobility. 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 At times, she is pouring sweat and able (unknown) (no (unknown) (unknown) latex [LATEX] (units ( unknown) date) Allergy (Severe, unknown) Verified 11/19/22 14:47) (unknown) (no (unknown) (unknown) levonorgestrel 21 (units (unknown) date) mcg/24 hours (8 unknown) yrs) 52 mg intrauterine device (Mirena) 52 mg (unknown) (no (unknown) (unknown) levothyroxine 88 (units (unknown) date) mcg tablet unknown) (Euthyrox) See Rx Instructions .Route .COMPLEX #30 (unknown) (no (unknown) (unknown) lives (units (unkno wn) date) independently: Yes unknown) (unknown) (no (unknown) (unknown) marital status: (units (unknown) date) unknown) (unknown) (no (unknown) (unknown) matter if she (units (u nknown) date) takes vitamins, unknown) gets extra sleep or is drinking water. The patient (unknown) (no (unknown) (unknown) may occur. (units (unk nown) date) Occasional unknown) wrong-word or 'sound-alike' substitutions may have (unknown) (no (unknown) (unknown) measures due to (units (unknown) date) frequency of unknown) headaches that are occurring. Referral to neurology (unknown) (no (unknown) (unknown) not help at all. (units (unknown) date) She unknown) takes?Aleve?migrai ne sparingly as she is not supposed to (unknown) (no (unknown) (unknown) occurred due to (units (unknown) date) the inherent unknown) limitations of voice recognition software. Please (unknown) (no (unknown) (unknown) occurring prior (units (unknown) date) to that time. She unknown) does not drink any significant amounts of (unknown) (no (unknown) (unknown) occurring to see (units (unknown) date) if we can come up unknown) with any sort of pattern that might not be (unknown) (no (unknown) (unknown) on the top of her (units (unknown) date) head squeezing unknown) very hard. She is getting these headaches more (unknown) (no (unknown) (unknown) ordered today as (units (unknown) date) below. Recommend unknown) patient try to keep track of when symptoms are (unknown) (no (unknown) (unknown) overtly evident (units (unknown) date) without tracking. unknown) We will follow up with labs and determine next (unknown) (no (unknown) (unknown) oxycodone (units (unkn own) date) [OXYCODONE] unknown) Adverse Reaction (Severe, Verified 11/19/22 14:47) (unknown) (no (unknown) (unknown) read the note (units ( unknown) date) carefully and unknown) recognize, using context, where these substitutions (unknown) (no (unknown) (unknown) recently due to (units (unknown) date) recurrent unknown) fractures when she was younger and joint (unknown) (no (unknown) (unknown) second hand (units (un known) date) exposure: No unknown) (unknown) (no (unknown) (unknown) significant (units (un known) date) elasticity issues unknown) noted on the skin today. Patient is quite (unknown) (no (unknown) (unknown) slightly different (units (unknown) date) than her classic unknown) migraines that she is used to having. Taking (unknown) (no (unknown) (unknown) software. (units (unkn own) date) Although every unknown) effort is made to edit content, associate professor of radiology errors (unknown) (no (unknown) (unknown) steps from there. (units (unknown) date) unknown) (unknown) (no (unknown) (unknown) substance use (units ( unknown) date) type: marijuana unknown) (unknown) (no (unknown) (unknown) sumatriptan (units (un known) date) succinate 100 mg unknown) tablet 100 mg PO ONCE #10 tabs 12/03/18 [Rx (unknown) (no (unknown) (unknown) syndrome. 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 She unknown) has always been sensitive to cold and heat, but it (unknown) (no (unknown) (unknown) the sumatriptan (units (unknown) date) does not seem to unknown) help, it only makes her feel sick. Tylenol does (unknown) (no (unknown) (unknown) this. It seems to (units (unknown) date) happen completely unknown) randomly without any triggers. The patient (unknown) (no (unknown) (unknown) through (units (unkno wn) date) rheumatology. unknown) Records of which are requested today. Additional labs (unknown) (no (unknown) (unknown) to cool down. She (units (unknown) date) has had to drench unknown) herself in water to cool off and even then (unknown) (no (unknown) (unknown) triamcinolone (units ( unknown) date) acetonide 0.1 % unknown) topical ointment 1 applic topical BID #15 grams (unknown) (no (unknown) (unknown) verapamil 40 mg (units (unknown) date) PO TID 90 tabs 2RF unknown) (unknown) (no (unknown) (unknown) verapamil 40 mg (units (unknown) date) tablet 40 mg PO unknown) TID #90 tabs 11/19/22 [Rx Confirmed 11/19/22] (unknown) (no (unknown) (unknown) very easily and (units (unknown) date) having very unknown) sensitive/fragile skin. Overall, although no (unknown) (no (unknown) (unknown) well. Referral (units (unknown) date) for genetics unknown) counseling placed today to assess further. Result panel 16 (unknown) (no (unknown) (unknown) (no value) (units (unk nown) date) unknown) (unknown) (no (unknown) (unknown) 11/20/22 (units (unkno wn) date) unknown) (unknown) (no (unknown) (unknown) 11/20/22] (units (unkn own) date) unknown) (unknown) (no (unknown) (unknown) 05/30/21 [Rx (units (u nknown) date) Confirmed unknown) 11/20/22] (unknown) (no (unknown) (unknown) 16:06 (units (unkno wn) date) unknown) (unknown) (no (unknown) (unknown) [id number] (units (unkno wn) date) unknown) (unknown) (no (unknown) (unknown) Age/Sex: 36 / F (units (unknown) date) Date of Service: unknown) (unknown) (no (unknown) (unknown) Allergies (units (unkn own) date) unknown) (unknown) (no (unknown) (unknown) [place], [place] (units ( unknown) date) [id number] unknown) (unknown) (no (unknown) (unknown) Attending Dr: (units ( unknown) date) Phoebe Borges unknown) (unknown) (no (unknown) (unknown) BMI 22.4 (units (unkno wn) date) unknown) (unknown) (no (unknown) (unknown) BP 128/64 (units (unkn own) date) unknown) (unknown) (no (unknown) (unknown) Blood Pressure (units (unknown) date) Location Rt unknown) brachial (unknown) (no (unknown) (unknown) Chronic (units (unkno wn) date) sinusitis unknown) (unknown) (no (unknown) (unknown) Confirmed (units (unkn own) date) 11/20/22] unknown) (unknown) (no (unknown) (unknown) : 1985 (units (unknown) date) Acct:[id number] unknown) (unknown) (no (unknown) (unknown) Dept at (units (unkno wn) date) . unknown) (unknown) (no (unknown) (unknown) Documented By: (units (unknown) date) Phoebe Borges unknown) 11/20/22 1605 (unknown) (no (unknown) (unknown) Draft (units (unkno wn) date) unknown) (unknown) (no (unknown) (unknown) [facility] unknown) (unknown) (no (unknown) (unknown) Genital herpes (units (unknown) date) unknown) (unknown) (no (unknown) (unknown) Gynecology Visit (units (unknown) date) unknown) (unknown) (no (unknown) (unknown) HALLUCINATIONS, (units (unknown) date) DIDN'T EAT FOR 4 unknown) DAYS (unknown) (no (unknown) (unknown) HIVES (units (unkno wn) date) unknown) (unknown) (no (unknown) (unknown) Height 5 ft 9 in (units (unknown) date) unknown) (unknown) (no (unknown) (unknown) Hypothyroidism (units (unknown) date) unknown) (unknown) (no (unknown) (unknown) INTRAU SEE (units (unk nown) date) INSTRUCTIONS #1 unknown) ea 03/15/17 [Rx Confirmed 11/20/22] (unknown) (no (unknown) (unknown) Intake Note: (units (u nknown) date) unknown) (unknown) (no (unknown) (unknown) Intake performed (units (unknown) date) by: unknown) Aria Pike (unknown) (no (unknown) (unknown) Intake (units (unkno wn) date) unknown) (unknown) (no (unknown) (unknown) Intake- Clincial (units (unknown) date) Staff unknown) (unknown) (no (unknown) (unknown) Last Menstural (units (unknown) date) Cycle + Details unknown) (unknown) (no (unknown) (unknown) Loc: [facility] (units (unkno wn) date) unknown) (unknown) (no (unknown) (unknown) Medical History (units (unknown) date) (Reviewed unknown) 01/20/21 @ 18:22 by Sanjeev Phelps DO) (unknown) (no (unknown) (unknown) Medications (units (un known) date) unknown) (unknown) (no (unknown) (unknown) Other Menstrual (units (unknown) date) Period: Other unknown) (unknown) (no (unknown) (unknown) PFSH (units (unkno wn) date) unknown) (unknown) (no (unknown) (unknown) Patient: (units (unkno wn) date) Sameera Hameed unknown) MR#: [id number] (unknown) (no (unknown) (unknown) Position Sitting (units (unknown) date) unknown) (unknown) (no (unknown) (unknown) Reason For Visit (units (unknown) date) unknown) (unknown) (no (unknown) (unknown) Right hip pain (units (unknown) date) unknown) (unknown) (no (unknown) (unknown) SUBCUT .COMPLEX (units (unknown) date) 03/10/21 [History unknown) Confirmed 11/20/22] (unknown) (no (unknown) (unknown) Signed By: (units (unk nown) date) unknown) (unknown) (no (unknown) (unknown) Smoking Status: (units (unknown) date) Never smoker unknown) (unknown) (no (unknown) (unknown) Social History (units (unknown) date) unknown) (unknown) (no (unknown) (unknown) Temp 98.0 F (units (un known) date) unknown) (unknown) (no (unknown) (unknown) Temp Source (units (un known) date) Temporal Artery unknown) Scan (unknown) (no (unknown) (unknown) This note may (units ( unknown) date) have been all or unknown) partially generated using voice recognition (unknown) (no (unknown) (unknown) Tobacco + (units (unkn own) date) Substance Use unknown) (unknown) (no (unknown) (unknown) Tobacco Status (units (unknown) date) unknown) (unknown) (no (unknown) (unknown) Ulcerative (units (unk nown) date) colitis unknown) (unknown) (no (unknown) (unknown) Vaginal delivery (units (unknown) date) unknown) (unknown) (no (unknown) (unknown) Visit Reasons: (units (unknown) date) Pre OP unknown) (unknown) (no (unknown) (unknown) Vitals (units (unkno wn) date) unknown) (unknown) (no (unknown) (unknown) Weight 152 lb (units ( unknown) date) unknown) (unknown) (no (unknown) (unknown) [Rx Confirmed (units ( unknown) date) 11/20/22] unknown) (unknown) (no (unknown) (unknown) acyclovir 400 mg (units (unknown) date) tablet See Rx unknown) Instructions .Route .COMPLEX #60 tabs 11/14/21 (unknown) (no (unknown) (unknown) adalimumab 40 (units ( unknown) date) mg/0.8 mL unknown) subcutaneous pen kit (Humira Pen) See Rx Instructions (unknown) (no (unknown) (unknown) alcohol intake: (units (unknown) date) never unknown) (unknown) (no (unknown) (unknown) alprazolam 0.25 (units (unknown) date) mg tablet 0.25 mg unknown) PO TID PRN anxiety #30 tabs 10/04/22 [Rx (unknown) (no (unknown) (unknown) caregiver/suppor (units (unknown) date) t person: No unknown) (unknown) (no (unknown) (unknown) fluconazole 150 (units (unknown) date) mg tablet 150 mg unknown) PO Q3D 2 doses #2 tabs 02/09/21 [Rx Confirmed (unknown) (no (unknown) (unknown) fluticasone (units (un known) date) propionate 50 unknown) mcg/actuation nasal spray,suspension 1 spray (unknown) (no (unknown) (unknown) have occurred. (units (unknown) date) If there are any unknown) questions, please contact the Medical Records (unknown) (no (unknown) (unknown) household (units (unkn own) date) members: spouse unknown) (unknown) (no (unknown) (unknown) housing: house (units (unknown) date) unknown) (unknown) (no (unknown) (unknown) hydrocortisone (units (unknown) date) 100 mg/60 mL unknown) enema 100 mg HI DAILY 01/20/21 [History Confirmed (unknown) (no (unknown) (unknown) intranasal DAILY (units (unknown) date) 01/20/21 [History unknown) Confirmed 02/21/23] (unknown) (no (unknown) (unknown) latex [LATEX] (units ( unknown) date) Allergy (Severe, unknown) Verified 11/20/22 16:06) (unknown) (no (unknown) (unknown) levonorgestrel (units (unknown) date) 21 mcg/24 hours unknown) (8 yrs) 52 mg intrauterine device (Mirena) 52 mg (unknown) (no (unknown) (unknown) levothyroxine 88 (units (unknown) date) mcg tablet unknown) (Euthyrox) See Rx Instructions .Route .COMPLEX #30 (unknown) (no (unknown) (unknown) lives (units (unkno wn) date) independently: unknown) Yes (unknown) (no (unknown) (unknown) marital status: (units (unknown) date) unknown) (unknown) (no (unknown) (unknown) may occur. (units (unk nown) date) Occasional unknown) wrong-word or 'sound-alike' substitutions may have (unknown) (no (unknown) (unknown) occurred due to (units (unknown) date) the inherent unknown) limitations of voice recognition software. Please (unknown) (no (unknown) (unknown) oxycodone (units (unkn own) date) [OXYCODONE] unknown) Adverse Reaction (Severe, Verified 11/20/22 16:06) (unknown) (no (unknown) (unknown) pt here for pre (units (unknown) date) op- [facility]/B unknown) salpingectomy and removal of L ovarian cyst (unknown) (no (unknown) (unknown) read the note (units ( unknown) date) carefully and unknown) recognize, using context, where these substitutions (unknown) (no (unknown) (unknown) second hand (units (un known) date) exposure: No unknown) (unknown) (no (unknown) (unknown) software. (units (unkn own) date) Although every unknown) effort is made to edit content, associate professor of radiology errors (unknown) (no (unknown) (unknown) substance use (units ( unknown) date) type: marijuana unknown) (unknown) (no (unknown) (unknown) sumatriptan (units (un known) date) succinate 100 mg unknown) tablet 100 mg PO ONCE #10 tabs 12/03/18 [Rx (unknown) (no (unknown) (unknown) tabs 02/27/22 (units ( unknown) date) [Rx Confirmed unknown) 11/20/22] (unknown) (no (unknown) (unknown) triamcinolone (units ( unknown) date) acetonide 0.1 % unknown) topical ointment 1 applic topical BID #15 grams (unknown) (no (unknown) (unknown) verapamil 40 mg (units (unknown) date) tablet 40 mg PO unknown) TID #90 tabs 11/19/22 [Rx Confirmed 11/20/22] Result panel 17 (unknown) (no (unknown) (unknown) (no value) (units (unk nown) date) unknown) (unknown) (no (unknown) (unknown) 11/25/22 (units (unkno wn) date) unknown) (unknown) (no (unknown) (unknown) [id number] (units (unkno wn) date) unknown) (unknown) (no (unknown) (unknown) 518 (units (unkno wn) date) unknown) (unknown) (no (unknown) (unknown) Age/Sex: 36 / F (units (unknown) date) Date of Service: unknown) (unknown) (no (unknown) (unknown) Allergies (units (unkn own) date) unknown) (unknown) (no (unknown) (unknown) [facility] (units (unknown) date) [facility] unknown) (unknown) (no (unknown) (unknown) [place] (units ( unknown) date) [id number] unknown) (unknown) (no (unknown) (unknown) Attending Dr: (units ( unknown) date) Emelyn Turner unknown) P.A-C (unknown) (no (unknown) (unknown) Chronic (units (unkno wn) date) sinusitis unknown) (unknown) (no (unknown) (unknown) : 1985 (units (unknown) date) Acct:[id number] unknown) (unknown) (no (unknown) (unknown) Dept at (units (unkno wn) date) . unknown) (unknown) (no (unknown) (unknown) Documented By: (units (unknown) date) Emelyn Turner unknown) P.A-C 11/25/22 1 (unknown) (no (unknown) (unknown) Draft (units (unkno wn) date) unknown) (unknown) (no (unknown) (unknown) Family Practice (units (unknown) date) Office Visit unknown) (unknown) (no (unknown) (unknown) Genital herpes (units (unknown) date) unknown) (unknown) (no (unknown) (unknown) HALLUCINATIONS, (units (unknown) date) DIDN'T EAT FOR 4 unknown) DAYS (unknown) (no (unknown) (unknown) HIVES (units (unkno wn) date) unknown) (unknown) (no (unknown) (unknown) Hypothyroidism (units (unknown) date) unknown) (unknown) (no (unknown) (unknown) Intake (units (unkno wn) date) unknown) (unknown) (no (unknown) (unknown) Last Menstural (units (unknown) date) Cycle + Details unknown) (unknown) (no (unknown) (unknown) Loc: [facility] (units (unkno wn) date) unknown) (unknown) (no (unknown) (unknown) Medical History (units (unknown) date) (Reviewed unknown) 01/20/21 @ 18:22 by Sanjeev Phelps DO) (unknown) (no (unknown) (unknown) Other Menstrual (units (unknown) date) Period: Other unknown) (unknown) (no (unknown) (unknown) PFSH (units (unkno wn) date) unknown) (unknown) (no (unknown) (unknown) Patient: (units (unkno wn) date) Sameera Hameed J unknown) MR#: [id number] (unknown) (no (unknown) (unknown) Reason For Visit (units (unknown) date) unknown) (unknown) (no (unknown) (unknown) Right hip pain (units (unknown) date) unknown) (unknown) (no (unknown) (unknown) Signed By: (units (unk nown) date) unknown) (unknown) (no (unknown) (unknown) Smoking Status: (units (unknown) date) Never smoker unknown) (unknown) (no (unknown) (unknown) Social History (units (unknown) date) unknown) (unknown) (no (unknown) (unknown) This note may (units ( unknown) date) have been all or unknown) partially generated using voice recognition (unknown) (no (unknown) (unknown) Tobacco + (units (unkn own) date) Substance Use unknown) (unknown) (no (unknown) (unknown) Tobacco Status (units (unknown) date) unknown) (unknown) (no (unknown) (unknown) Ulcerative (units (unk nown) date) colitis unknown) (unknown) (no (unknown) (unknown) Vaginal delivery (units (unknown) date) unknown) (unknown) (no (unknown) (unknown) Visit Reasons: (units (unknown) date) possible sinus unknown) infection (unknown) (no (unknown) (unknown) alcohol intake: (units (unknown) date) never unknown) (unknown) (no (unknown) (unknown) caregiver/suppor (units (unknown) date) t person: No unknown) (unknown) (no (unknown) (unknown) have occurred. (units (unknown) date) If there are any unknown) questions, please contact the Medical Records (unknown) (no (unknown) (unknown) household (units (unkn own) date) members: spouse unknown) (unknown) (no (unknown) (unknown) housing: house (units (unknown) date) unknown) (unknown) (no (unknown) (unknown) latex [LATEX] (units ( unknown) date) Allergy (Severe, unknown) Verified 11/20/22 16:06) (unknown) (no (unknown) (unknown) lives (units (unkno wn) date) independently: unknown) Yes (unknown) (no (unknown) (unknown) marital status: (units (unknown) date) unknown) (unknown) (no (unknown) (unknown) may occur. (units (unk nown) date) Occasional unknown) wrong-word or 'sound-alike' substitutions may have (unknown) (no (unknown) (unknown) occurred due to (units (unknown) date) the inherent unknown) limitations of voice recognition software. Please (unknown) (no (unknown) (unknown) oxycodone (units (unkn own) date) [OXYCODONE] unknown) Adverse Reaction (Severe, Verified 11/20/22 16:06) (unknown) (no (unknown) (unknown) read the note (units ( unknown) date) carefully and unknown) recognize, using context, where these substitutions (unknown) (no (unknown) (unknown) second hand (units (un known) date) exposure: No unknown) (unknown) (no (unknown) (unknown) software. (units (unkn own) date) Although every unknown) effort is made to edit content, associate professor of radiology errors (unknown) (no (unknown) (unknown) substance use (units ( unknown) date) type: marijuana unknown) Result panel 18 (unknown) (no (unknown) (unknown) (no value) (units (unk nown) date) unknown) (unknown) (no (unknown) (unknown) (1) Bacterial (units ( unknown) date) sinusitis: unknown) (unknown) (no (unknown) (unknown) 11/25/22 1631 (units ( unknown) date) unknown) (unknown) (no (unknown) (unknown) 11/25/22 (units (unkno wn) date) unknown) (unknown) (no (unknown) (unknown) 05/30/21 [Rx (units (u nknown) date) Confirmed unknown) 11/25/22] (unknown) (no (unknown) (unknown) 0RF bacterial (units ( unknown) date) sinusitis unknown) (unknown) (no (unknown) (unknown) [id number] (units (unkno wn) date) unknown) (unknown) (no (unknown) (unknown) 36-year-old (units (un known) date) female with unknown) chronic sinus infections presents with concern for a (unknown) (no (unknown) (unknown) 36-year-old woman (units (unknown) date) with a history of unknown) persistent chronic sinus infections presents (unknown) (no (unknown) (unknown) 518 (units (unkno wn) date) unknown) (unknown) (no (unknown) (unknown) Age/Sex: 36 / F (units (unknown) date) Date of Service: unknown) (unknown) (no (unknown) (unknown) All systems (units (un known) date) reviewed + are unknown) unremarkable except as noted in HPI and below (unknown) (no (unknown) (unknown) Allergies (units (unkn own) date) unknown) (unknown) (no (unknown) (unknown) [facility] (units (unknown) date) Medicine unknown) (unknown) (no (unknown) (unknown) [place] (units ( unknown) date) [id number] unknown) (unknown) (no (unknown) (unknown) Assessment + (units (u nknown) date) Plan unknown) (unknown) (no (unknown) (unknown) Attending Dr: (units ( unknown) date) Emelyn Turner unknown) Gena (unknown) (no (unknown) (unknown) CARDIOVASCULAR: (units (unknown) date) Regular rate and unknown) rhythm without murmurs, gallops, or rubs. (unknown) (no (unknown) (unknown) Chief Complaint (units (unknown) date) unknown) (unknown) (no (unknown) (unknown) Chief Complaint: (units (unknown) date) Sinus infection unknown) (unknown) (no (unknown) (unknown) Chronic (units (unkno wn) date) sinusitis unknown) (unknown) (no (unknown) (unknown) Confirmed (units (unkn own) date) 11/25/22] unknown) (unknown) (no (unknown) (unknown) Const (units (unkno wn) date) unknown) (unknown) (no (unknown) (unknown) : 1985 (units (unknown) date) Acct:[id number] unknown) (unknown) (no (unknown) (unknown) Dept at (units (unkno wn) date) . unknown) (unknown) (no (unknown) (unknown) Details: (units (unkno wn) date) unknown) (unknown) (no (unknown) (unknown) Documented By: (units (unknown) date) Emelyn Turner unknown) Gena 11/25/22 1 (unknown) (no (unknown) (unknown) ENT: Nose (units (unkn own) date) without bleeding, unknown) purulent drainage. Airway patent. Slight discomfort (unknown) (no (unknown) (unknown) EXTREMITIES: No (units (unknown) date) edema or joint unknown) tenderness. (unknown) (no (unknown) (unknown) EYES: Pupils (units (u nknown) date) equal round and unknown) reactive. Extraocular motions intact. No scleral (unknown) (no (unknown) (unknown) Exam Narrative (units (unknown) date) unknown) (unknown) (no (unknown) (unknown) Exam Narrative: (units (unknown) date) unknown) (unknown) (no (unknown) (unknown) Exam (units (unkno wn) date) unknown) (unknown) (no (unknown) (unknown) Family Practice (units (unknown) date) Office Visit unknown) (unknown) (no (unknown) (unknown) GENERAL: 36 year (units (unknown) date) old patient unknown) appears stated age. Well-developed patient, in mild (unknown) (no (unknown) (unknown) Genital herpes (units (unknown) date) unknown) (unknown) (no (unknown) (unknown) HALLUCINATIONS, (units (unknown) date) DIDN'T EAT FOR 4 unknown) DAYS (unknown) (no (unknown) (unknown) HEAD: (units (unkno wn) date) Atraumatic. unknown) Normocephalic. (unknown) (no (unknown) (unknown) HIVES (units (unkno wn) date) unknown) (unknown) (no (unknown) (unknown) HPI (units (unkno wn) date) unknown) (unknown) (no (unknown) (unknown) Hypothyroidism (units (unknown) date) unknown) (unknown) (no (unknown) (unknown) INTRAU SEE (units (unk nown) date) INSTRUCTIONS #1 unknown) ea 03/15/17 [Rx Confirmed 11/25/22] (unknown) (no (unknown) (unknown) Intake (units (unkno wn) date) unknown) (unknown) (no (unknown) (unknown) Last Menstural (units (unknown) date) Cycle + Details unknown) (unknown) (no (unknown) (unknown) Loc: [facility] (units (unkno wn) date) unknown) (unknown) (no (unknown) (unknown) Medical History (units (unknown) date) (Reviewed unknown) 11/25/22 @ 16:27 by Emelyn Turner PA-C) (unknown) (no (unknown) (unknown) Medications (units (un known) date) unknown) (unknown) (no (unknown) (unknown) Medications: (units (u nknown) date) unknown) (unknown) (no (unknown) (unknown) NECK: Trachea (units ( unknown) date) midline. Non unknown) tender (unknown) (no (unknown) (unknown) NEURO: AOx3. (units (u nknown) date) unknown) (unknown) (no (unknown) (unknown) New (units (unkno wn) date) unknown) (unknown) (no (unknown) (unknown) Onset: 11/16/22 (units (unknown) date) unknown) (unknown) (no (unknown) (unknown) Other Menstrual (units (unknown) date) Period: Other unknown) (unknown) (no (unknown) (unknown) Otherwise TMs (units ( unknown) date) are normal in unknown) appearance, slightly injected. (unknown) (no (unknown) (unknown) PFSH (units (unkno wn) date) unknown) (unknown) (no (unknown) (unknown) Patient: (units (unkno wn) date) Sameera Hameed unknown) MR#: [id number] (unknown) (no (unknown) (unknown) Plan (units (unkno wn) date) unknown) (unknown) (no (unknown) (unknown) RESPIRATORY: (units (un known) date) Clear to unknown) auscultation. Breath sounds equal bilaterally. No wheezes, (unknown) (no (unknown) (unknown) ROS (units (unkno wn) date) unknown) (unknown) (no (unknown) (unknown) Reason For Visit (units (unknown) date) unknown) (unknown) (no (unknown) (unknown) Right hip pain (units (unknown) date) unknown) (unknown) (no (unknown) (unknown) SKIN: No rash or (units (unknown) date) erythema of unknown) visible areas (unknown) (no (unknown) (unknown) SUBCUT .COMPLEX (units (unknown) date) 03/10/21 [History unknown) Confirmed 11/25/22] (unknown) (no (unknown) (unknown) She is tried (units (u nknown) date) multiple unknown) [id number] treatments without improvement. She says (unknown) (no (unknown) (unknown) Signed By: (units (unk nown) date) <Electronically unknown) signed by Emelyn Turner> (unknown) (no (unknown) (unknown) Signed (units (unkno wn) date) unknown) (unknown) (no (unknown) (unknown) Smoking Status: (units (unknown) date) Never smoker unknown) (unknown) (no (unknown) (unknown) Social History (units (unknown) date) unknown) (unknown) (no (unknown) (unknown) This note may (units ( unknown) date) have been all or unknown) partially generated using voice recognition (unknown) (no (unknown) (unknown) Tobacco + (units (unkn own) date) Substance Use unknown) (unknown) (no (unknown) (unknown) Tobacco Status (units (unknown) date) unknown) (unknown) (no (unknown) (unknown) Ulcerative (units (unk nown) date) colitis unknown) (unknown) (no (unknown) (unknown) Vaginal delivery (units (unknown) date) unknown) (unknown) (no (unknown) (unknown) Visit Reasons: (units (unknown) date) possible sinus unknown) infection (unknown) (no (unknown) (unknown) [Rx Confirmed (units ( unknown) date) 11/25/22] unknown) (unknown) (no (unknown) (unknown) acute on chronic (units (unknown) date) bacterial unknown) sinusitis, patient is prescribed Augmentin for 12 day (unknown) (no (unknown) (unknown) acyclovir 400 mg (units (unknown) date) tablet See Rx unknown) Instructions .Route .COMPLEX #60 tabs 11/14/21 (unknown) (no (unknown) (unknown) adalimumab 40 (units ( unknown) date) mg/0.8 mL unknown) subcutaneous pen kit (Humira Pen) See Rx Instructions (unknown) (no (unknown) (unknown) alcohol intake: (units (unknown) date) never unknown) (unknown) (no (unknown) (unknown) all questions (units ( unknown) date) answered. unknown) (unknown) (no (unknown) (unknown) alprazolam 0.25 (units (unknown) date) mg tablet 0.25 mg unknown) PO TID PRN anxiety #30 tabs 10/04/22 [Rx (unknown) (no (unknown) (unknown) amoxicillin 500 (units (unknown) date) mg-potassium unknown) clavulanate 125 mg tablet (Augmentin) 1 tab PO Q8H (unknown) (no (unknown) (unknown) amoxicillin-pot (units (unknown) date) clavulanate unknown) 500-125 mg (Augmentin) 1 tab PO Q8H 12 days 36 tabs (unknown) (no (unknown) (unknown) antibiotics she (units (unknown) date) says this feels unknown) like previous infections when they have gotten (unknown) (no (unknown) (unknown) bacterial (units (unkn own) date) sinusitis 12 days unknown) #36 tabs 11/25/22 [Rx Confirmed 11/25/22] (unknown) (no (unknown) (unknown) caregiver/suppor (units (unknown) date) t person: No unknown) (unknown) (no (unknown) (unknown) course. Patient (units (unknown) date) has had symptoms unknown) for about 10 days with 7 days of worsening. (unknown) (no (unknown) (unknown) distress, slim, (units (unknown) date) tired appearing. unknown) (unknown) (no (unknown) (unknown) fluticasone (units (un known) date) propionate 50 unknown) mcg/actuation nasal spray,suspension 1 spray (unknown) (no (unknown) (unknown) for further (units (un known) date) evaluation of her unknown) chronic symptoms and was told that the lining of (unknown) (no (unknown) (unknown) for the last 7 (units (unknown) date) days she is been unknown) having worsening sinus pressure and discomfort (unknown) (no (unknown) (unknown) have a long (units (un known) date) history of sinus unknown) infections, and has had sinus CT. Patient's (unknown) (no (unknown) (unknown) have occurred. (units (unknown) date) If there are any unknown) questions, please contact the Medical Records (unknown) (no (unknown) (unknown) her sinuses is (units (unknown) date) very minimal. She unknown) has a history of severe and persistent sinus (unknown) (no (unknown) (unknown) history and (units (un known) date) symptoms are not unknown) consistent with a viral illness and she is not (unknown) (no (unknown) (unknown) household (units (unkn own) date) members: spouse unknown) (unknown) (no (unknown) (unknown) housing: house (units (unknown) date) unknown) (unknown) (no (unknown) (unknown) icterus. No (units (un known) date) injection or unknown) drainage. (unknown) (no (unknown) (unknown) infections. She (units (unknown) date) denies any unknown) fevers, also denies a sore throat, ear pain, cough (unknown) (no (unknown) (unknown) intranasal DAILY (units (unknown) date) 01/20/21 [History unknown) Confirmed 11/25/22] (unknown) (no (unknown) (unknown) latex [LATEX] (units ( unknown) date) Allergy (Severe, unknown) Verified 11/20/22 16:06) (unknown) (no (unknown) (unknown) levonorgestrel (units (unknown) date) 21 mcg/24 hours unknown) (8 yrs) 52 mg intrauterine device (Mirena) 52 mg (unknown) (no (unknown) (unknown) levothyroxine 88 (units (unknown) date) mcg tablet unknown) (Euthyrox) See Rx Instructions .Route .COMPLEX #30 (unknown) (no (unknown) (unknown) like her (units (unkno wn) date) previous sinus unknown) infections. She did have a CT of her sinuses recently (unknown) (no (unknown) (unknown) lives (units (unkno wn) date) independently: unknown) Yes (unknown) (no (unknown) (unknown) lying flat. She (units (unknown) date) says there is a unknown) pressure behind both of her eyes and this feels (unknown) (no (unknown) (unknown) marital status: (units (unknown) date) unknown) (unknown) (no (unknown) (unknown) may occur. (units (unk nown) date) Occasional unknown) wrong-word or 'sound-alike' substitutions may have (unknown) (no (unknown) (unknown) normal in (units (unkn own) date) appearance, there unknown) is fluid effusion behind the right eardrum. (unknown) (no (unknown) (unknown) occurred due to (units (unknown) date) the inherent unknown) limitations of voice recognition software. Please (unknown) (no (unknown) (unknown) or any other (units (u nknown) date) symptoms. unknown) (unknown) (no (unknown) (unknown) oxycodone (units (unkn own) date) [OXYCODONE] unknown) Adverse Reaction (Severe, Verified 11/20/22 16:06) (unknown) (no (unknown) (unknown) rales, or (units (unkn own) date) rhonchi. unknown) (unknown) (no (unknown) (unknown) read the note (units ( unknown) date) carefully and unknown) recognize, using context, where these substitutions (unknown) (no (unknown) (unknown) second hand (units (un known) date) exposure: No unknown) (unknown) (no (unknown) (unknown) sinus infection. (units (unknown) date) Patient states unknown) that her symptoms began around 10 days ago, and (unknown) (no (unknown) (unknown) software. (units (unkn own) date) Although every unknown) effort is made to edit content, associate professor of radiology errors (unknown) (no (unknown) (unknown) sometimes her (units ( unknown) date) infections get unknown) better on their own and sometimes they require (unknown) (no (unknown) (unknown) substance use (units ( unknown) date) type: marijuana unknown) (unknown) (no (unknown) (unknown) sumatriptan (units (un known) date) succinate 100 mg unknown) tablet 100 mg PO ONCE #10 tabs 12/03/18 [Rx (unknown) (no (unknown) (unknown) tabs 02/27/22 (units ( unknown) date) [Rx Confirmed unknown) 11/25/22] (unknown) (no (unknown) (unknown) tested for this (units (unknown) date) today. Return unknown) precautions provided, follow-up plan discussed, (unknown) (no (unknown) (unknown) that is changed (units (unknown) date) with position unknown) worse when she lays flat or moves from sitting to (unknown) (no (unknown) (unknown) triamcinolone (units ( unknown) date) acetonide 0.1 % unknown) topical ointment 1 applic topical BID #15 grams (unknown) (no (unknown) (unknown) verapamil 40 mg (units (unknown) date) tablet 40 mg PO unknown) TID #90 tabs 11/19/22 [Rx Confirmed 11/25/22] (unknown) (no (unknown) (unknown) with concern for (units (unknown) date) sinus infection unknown) symptoms. Exam and history are consistent with (unknown) (no (unknown) (unknown) with percussion (units (unknown) date) over the unknown) maxillary sinuses bilaterally. Bilateral ear canals (unknown) (no (unknown) (unknown) worse and (units (unkn own) date) required unknown) antibiotics. Did review the patient's chart and she does Result panel 19 (unknown) (no (unknown) (unknown) (no value) (units (unk nown) date) unknown) (unknown) (no (unknown) (unknown) 11/20/22 (units (unkno wn) date) unknown) (unknown) (no (unknown) (unknown) 05/30/21 [Rx (units (u nknown) date) Confirmed unknown) 11/25/22] (unknown) (no (unknown) (unknown) 16:06 (units (unkno wn) date) unknown) (unknown) (no (unknown) (unknown) [id number] (units (unkno wn) date) unknown) (unknown) (no (unknown) (unknown) Age/Sex: 36 / F (units (unknown) date) Date of Service: unknown) (unknown) (no (unknown) (unknown) Allergies (units (unkn own) date) unknown) (unknown) (no (unknown) (unknown) [place], [place] (units ( unknown) date) [id number] unknown) (unknown) (no (unknown) (unknown) Attending Dr: (units ( unknown) date) Phoebe Borges unknown) (unknown) (no (unknown) (unknown) BMI 22.4 (units (unkno wn) date) unknown) (unknown) (no (unknown) (unknown) BP 128/64 (units (unkn own) date) unknown) (unknown) (no (unknown) (unknown) Blood Pressure (units (unknown) date) Location Rt unknown) brachial (unknown) (no (unknown) (unknown) Chief Complaint: (units (unknown) date) Preoperative exam unknown) (unknown) (no (unknown) (unknown) Chronic (units (unkno wn) date) sinusitis unknown) (unknown) (no (unknown) (unknown) Confirmed (units (unkn own) date) 11/25/22] unknown) (unknown) (no (unknown) (unknown) : 1985 (units (unknown) date) Acct:[id number] unknown) (unknown) (no (unknown) (unknown) Dept at (units (unkno wn) date) . unknown) (unknown) (no (unknown) (unknown) Documented By: (units (unknown) date) Phoebe Borges unknown) 11/20/22 1605 (unknown) (no (unknown) (unknown) Draft (units (unkno wn) date) unknown) (unknown) (no (unknown) (unknown) [facility] ([facility] ([facility] unknown) (unknown) (no (unknown) (unknown) Genital herpes (units (unknown) date) unknown) (unknown) (no (unknown) (unknown) Gynecology Visit (units (unknown) date) unknown) (unknown) (no (unknown) (unknown) HALLUCINATIONS, (units (unknown) date) DIDN'T EAT FOR 4 unknown) DAYS (unknown) (no (unknown) (unknown) HIVES (units (unkno wn) date) unknown) (unknown) (no (unknown) (unknown) Height 5 ft 9 in (units (unknown) date) unknown) (unknown) (no (unknown) (unknown) Hypothyroidism (units (unknown) date) unknown) (unknown) (no (unknown) (unknown) INTRAU SEE (units (unk nown) date) INSTRUCTIONS #1 unknown) ea 03/15/17 [Rx Confirmed 11/25/22] (unknown) (no (unknown) (unknown) Intake Note: (units (u nknown) date) unknown) (unknown) (no (unknown) (unknown) Intake performed (units (unknown) date) by: unknown) Aria Pike (unknown) (no (unknown) (unknown) Intake (units (unkno wn) date) unknown) (unknown) (no (unknown) (unknown) Intake- Clincial (units (unknown) date) Staff unknown) (unknown) (no (unknown) (unknown) LSCH/bilateral (units (unknown) date) salpingectomy unknown) (unknown) (no (unknown) (unknown) Last Menstural (units (unknown) date) Cycle + Details unknown) (unknown) (no (unknown) (unknown) Loc: [facility] (units (unkno wn) date) unknown) (unknown) (no (unknown) (unknown) Medical History (units (unknown) date) (Reviewed unknown) 11/25/22 @ 16:27 by Emelyn Turner PA-C) (unknown) (no (unknown) (unknown) Medications (units (un known) date) unknown) (unknown) (no (unknown) (unknown) Note (units (unkno wn) date) unknown) (unknown) (no (unknown) (unknown) Note: (units (unkno wn) date) unknown) (unknown) (no (unknown) (unknown) Notes (units (unkno wn) date) unknown) (unknown) (no (unknown) (unknown) Other Menstrual (units (unknown) date) Period: Other unknown) (unknown) (no (unknown) (unknown) PFSH (units (unkno wn) date) unknown) (unknown) (no (unknown) (unknown) Patient is a 37 (units (unknown) date) year old unknown) who presents for a preoperative exam for a (unknown) (no (unknown) (unknown) Patient: (units (unkno wn) date) Sameera Hameed unknown) MR#: [id number] (unknown) (no (unknown) (unknown) Position Sitting (units (unknown) date) unknown) (unknown) (no (unknown) (unknown) Reason For Visit (units (unknown) date) unknown) (unknown) (no (unknown) (unknown) Right hip pain (units (unknown) date) unknown) (unknown) (no (unknown) (unknown) SUBCUT .COMPLEX (units (unknown) date) 03/10/21 [History unknown) Confirmed 11/25/22] (unknown) (no (unknown) (unknown) Signed By: (units (unk nown) date) unknown) (unknown) (no (unknown) (unknown) Smoking Status: (units (unknown) date) Never smoker unknown) (unknown) (no (unknown) (unknown) Social History (units (unknown) date) unknown) (unknown) (no (unknown) (unknown) Temp 98.0 F (units (un known) date) unknown) (unknown) (no (unknown) (unknown) Temp Source (units (un known) date) Temporal Artery unknown) Scan (unknown) (no (unknown) (unknown) This is being (units ( unknown) date) done due to unknown) pelvic congestion and pelvic pain (unknown) (no (unknown) (unknown) This note may (units ( unknown) date) have been all or unknown) partially generated using voice recognition (unknown) (no (unknown) (unknown) Tobacco + (units (unkn own) date) Substance Use unknown) (unknown) (no (unknown) (unknown) Tobacco Status (units (unknown) date) unknown) (unknown) (no (unknown) (unknown) Ulcerative (units (unk nown) date) colitis unknown) (unknown) (no (unknown) (unknown) Vaginal delivery (units (unknown) date) unknown) (unknown) (no (unknown) (unknown) Visit Reasons: (units (unknown) date) Pre OP unknown) (unknown) (no (unknown) (unknown) Vitals (units (unkno wn) date) unknown) (unknown) (no (unknown) (unknown) Weight 152 lb (units ( unknown) date) unknown) (unknown) (no (unknown) (unknown) [Rx Confirmed (units ( unknown) date) 11/25/22] unknown) (unknown) (no (unknown) (unknown) acyclovir 400 mg (units (unknown) date) tablet See Rx unknown) Instructions .Route .COMPLEX #60 tabs 11/14/21 (unknown) (no (unknown) (unknown) adalimumab 40 (units ( unknown) date) mg/0.8 mL unknown) subcutaneous pen kit (Humira Pen) See Rx Instructions (unknown) (no (unknown) (unknown) alcohol intake: (units (unknown) date) never unknown) (unknown) (no (unknown) (unknown) alprazolam 0.25 (units (unknown) date) mg tablet 0.25 mg unknown) PO TID PRN anxiety #30 tabs 12/21/22 [Rx] (unknown) (no (unknown) (unknown) caregiver/suppor (units (unknown) date) t person: No unknown) (unknown) (no (unknown) (unknown) fluticasone (units (un known) date) propionate 50 unknown) mcg/actuation nasal spray,suspension 1 spray (unknown) (no (unknown) (unknown) have occurred. (units (unknown) date) If there are any unknown) questions, please contact the Medical Records (unknown) (no (unknown) (unknown) household (units (unkn own) date) members: spouse unknown) (unknown) (no (unknown) (unknown) housing: house (units (unknown) date) unknown) (unknown) (no (unknown) (unknown) intranasal DAILY (units (unknown) date) 01/20/21 [History unknown) Confirmed 11/25/22] (unknown) (no (unknown) (unknown) latex [LATEX] (units ( unknown) date) Allergy (Severe, unknown) Verified 11/20/22 16:06) (unknown) (no (unknown) (unknown) levonorgestrel (units (unknown) date) 21 mcg/24 hours unknown) (8 yrs) 52 mg intrauterine device (Mirena) 52 mg (unknown) (no (unknown) (unknown) levothyroxine 88 (units (unknown) date) mcg tablet unknown) (Euthyrox) See Rx Instructions .Route .COMPLEX #30 (unknown) (no (unknown) (unknown) lives (units (unkno wn) date) independently: unknown) Yes (unknown) (no (unknown) (unknown) marital status: (units (unknown) date) unknown) (unknown) (no (unknown) (unknown) may occur. (units (unk nown) date) Occasional unknown) wrong-word or 'sound-alike' substitutions may have (unknown) (no (unknown) (unknown) occurred due to (units (unknown) date) the inherent unknown) limitations of voice recognition software. Please (unknown) (no (unknown) (unknown) oxycodone (units (unkn own) date) [OXYCODONE] unknown) Adverse Reaction (Severe, Verified 11/20/22 16:06) (unknown) (no (unknown) (unknown) pt here for pre (units (unknown) date) op- LSCH/B unknown) salpingectomy and removal of L ovarian cyst (unknown) (no (unknown) (unknown) read the note (units ( unknown) date) carefully and unknown) recognize, using context, where these substitutions (unknown) (no (unknown) (unknown) second hand (units (un known) date) exposure: No unknown) (unknown) (no (unknown) (unknown) software. (units (unkn own) date) Although every unknown) effort is made to edit content, associate professor of radiology errors (unknown) (no (unknown) (unknown) substance use (units ( unknown) date) type: marijuana unknown) (unknown) (no (unknown) (unknown) sumatriptan (units (un known) date) succinate 100 mg unknown) tablet 100 mg PO ONCE #10 tabs 12/03/18 [Rx (unknown) (no (unknown) (unknown) tabs 02/27/22 (units ( unknown) date) [Rx Confirmed unknown) 11/25/22] (unknown) (no (unknown) (unknown) triamcinolone (units ( unknown) date) acetonide 0.1 % unknown) topical ointment 1 applic topical BID #15 grams (unknown) (no (unknown) (unknown) verapamil 40 mg (units (unknown) date) tablet 40 mg PO unknown) TID #90 tabs 11/19/22 [Rx Confirmed 11/25/22] Result panel 20 (unknown) (no (unknown) (unknown) (no value) (units (unk nown) date) unknown) (unknown) (no (unknown) (unknown) (1) Pelvic (units (unk nown) date) congestion: unknown) (unknown) (no (unknown) (unknown) (2) Pelvic pain: (units (unknown) date) unknown) (unknown) (no (unknown) (unknown) (3) Left ovarian (units (unknown) date) cyst: unknown) (unknown) (no (unknown) (unknown) 11/20/22 (units (unkno wn) date) unknown) (unknown) (no (unknown) (unknown) 12/27/22 1541 (units ( unknown) date) unknown) (unknown) (no (unknown) (unknown) 05/30/21 [Rx (units (u nknown) date) Confirmed 11/25/22] unknown) (unknown) (no (unknown) (unknown) 16:06 (units (unkno wn) date) unknown) (unknown) (no (unknown) (unknown) [id number] (units (unkno wn) date) unknown) (unknown) (no (unknown) (unknown) 37-year-old (unit s (unknown) date) 3 para 3 with a left unknown) ovarian cyst, pelvic congestion, and (unknown) (no (unknown) (unknown) Abdomen: Soft and (units (unknown) date) flat. No unknown) hepatosplenomegaly no masses palpable (unknown) (no (unknown) (unknown) Age/Sex: 36 / F (units (unknown) date) Date of Service: unknown) (unknown) (no (unknown) (unknown) Allergies (units (unkn own) date) unknown) (unknown) (no (unknown) (unknown) [place] [id number] (unit s (unknown) date) unknown) (unknown) (no (unknown) (unknown) Assessment + Plan (units (unknown) date) unknown) (unknown) (no (unknown) (unknown) Assessment and (units (unknown) date) Plan: unknown) (unknown) (no (unknown) (unknown) Assessment: (units (un known) date) unknown) (unknown) (no (unknown) (unknown) Attending Dr: (units ( unknown) date) Phoebe Borges MD unknown) (unknown) (no (unknown) (unknown) BMI 22.4 (units (unkno wn) date) unknown) (unknown) (no (unknown) (unknown) BP 128/64 (units (unkn own) date) unknown) (unknown) (no (unknown) (unknown) Bimanual exam: An 8 (unit s (unknown) date) week size anteverted unknown) uterus. (unknown) (no (unknown) (unknown) Blood Pressure (units (unknown) date) Location Rt brachial unknown) (unknown) (no (unknown) (unknown) Cardiovascular: (units (unknown) date) Regular rate and unknown) rhythm (unknown) (no (unknown) (unknown) Chief Complaint: (units (unknown) date) Preoperative exam unknown) (unknown) (no (unknown) (unknown) Chronic sinusitis (units (unknown) date) unknown) (unknown) (no (unknown) (unknown) Confirmed 11/25/22] (unit s (unknown) date) unknown) (unknown) (no (unknown) (unknown) : 1985 (units (unknown) date) Acct:[id number] unknown) (unknown) (no (unknown) (unknown) Dept at (units (unkno wn) date) . unknown) (unknown) (no (unknown) (unknown) Documented By: (units (unknown) date) Phoebe Borges MD unknown) 11/20/22 1605 (unknown) (no (unknown) (unknown) Exam Narrative (units (unknown) date) unknown) (unknown) (no (unknown) (unknown) Exam Narrative: (units (unknown) date) unknown) (unknown) (no (unknown) (unknown) Exam (units (unkno wn) date) unknown) (unknown) (no (unknown) (unknown) Extremities: No (units (unknown) date) edema unknown) (unknown) (no (unknown) (unknown) [facility] (units ([facility] date[facility] unknown) (unknown) (no (unknown) (unknown) Generally: A (units (u nknown) date) well-developed, unknown) well-nourished female, no acute distress (unknown) (no (unknown) (unknown) Genital herpes (units (unknown) date) unknown) (unknown) (no (unknown) (unknown) Gynecology Visit (units (unknown) date) unknown) (unknown) (no (unknown) (unknown) HALLUCINATIONS, (units (unknown) date) DIDN'T EAT FOR 4 unknown) DAYS (unknown) (no (unknown) (unknown) HIVES (units (unkno wn) date) unknown) (unknown) (no (unknown) (unknown) Height 5 ft 9 in (units (unknown) date) unknown) (unknown) (no (unknown) (unknown) Hypothyroidism (units (unknown) date) unknown) (unknown) (no (unknown) (unknown) INTRAU SEE (units (unk nown) date) INSTRUCTIONS #1 ea unknown) 03/15/17 [Rx Confirmed 11/25/22] (unknown) (no (unknown) (unknown) Intake Note: (units (u nknown) date) unknown) (unknown) (no (unknown) (unknown) Intake performed (units (unknown) date) by: Aria Pike unknown) (unknown) (no (unknown) (unknown) Intake (units (unkno wn) date) unknown) (unknown) (no (unknown) (unknown) Intake- Clincial (units (unknown) date) Staff unknown) (unknown) (no (unknown) (unknown) LSCH/bilateral (units (unknown) date) salpingectomy unknown) (unknown) (no (unknown) (unknown) Laparoscopic (units (un known) date) supracervical unknown) hysterectomy, bilateral salpingectomy, and removal of (unknown) (no (unknown) (unknown) Last Menstural (units (unknown) date) Cycle + Details unknown) (unknown) (no (unknown) (unknown) Loc: [facility] (units (unkno wn) date) unknown) (unknown) (no (unknown) (unknown) Lungs: Clear to (units (unknown) date) auscultation unknown) bilaterally (unknown) (no (unknown) (unknown) Medical History (units (unknown) date) (Reviewed 11/25/22 @ unknown) 16:27 by Emelyn Turner PA-C) (unknown) (no (unknown) (unknown) Medications (units (un known) date) unknown) (unknown) (no (unknown) (unknown) Note (units (unkno wn) date) unknown) (unknown) (no (unknown) (unknown) Note: (units (unkno wn) date) unknown) (unknown) (no (unknown) (unknown) Notes (units (unkno wn) date) unknown) (unknown) (no (unknown) (unknown) Other Menstrual (units (unknown) date) Period: Other unknown) (unknown) (no (unknown) (unknown) PFSH (units (unkno wn) date) unknown) (unknown) (no (unknown) (unknown) Patient is a 37 (units (unknown) date) year old who unknown) presents for a preoperative exam for a (unknown) (no (unknown) (unknown) Patient: (units (unkno wn) date) Sameera Hameed Arleen MR#: unknown) [id number] (unknown) (no (unknown) (unknown) Plan: (units (unkno wn) date) unknown) (unknown) (no (unknown) (unknown) Position Sitting (units (unknown) date) unknown) (unknown) (no (unknown) (unknown) Reason For Visit (units (unknown) date) unknown) (unknown) (no (unknown) (unknown) Right hip pain (units (unknown) date) unknown) (unknown) (no (unknown) (unknown) SUBCUT .COMPLEX (units (unknown) date) 03/10/21 [History unknown) Confirmed 11/25/22] (unknown) (no (unknown) (unknown) Signed By: (units (unk nown) date) <Electronically unknown) signed by Phoebe Borges MD> (unknown) (no (unknown) (unknown) Signed (units (unkno wn) date) unknown) (unknown) (no (unknown) (unknown) Smoking Status: (units (unknown) date) Never smoker unknown) (unknown) (no (unknown) (unknown) Social History (units (unknown) date) unknown) (unknown) (no (unknown) (unknown) Status: Acute (units ( unknown) date) unknown) (unknown) (no (unknown) (unknown) Temp 98.0 F (units (un known) date) unknown) (unknown) (no (unknown) (unknown) Temp Source (units (un known) date) Temporal Artery Scan unknown) (unknown) (no (unknown) (unknown) The risks, (units (unk nown) date) benefits, and unknown) alternatives to the procedure were explained to the (unknown) (no (unknown) (unknown) This is being done (units (unknown) date) due to pelvic unknown) congestion and pelvic pain (unknown) (no (unknown) (unknown) This note may have (units (unknown) date) been all or unknown) partially generated using voice recognition (unknown) (no (unknown) (unknown) Tobacco + Substance (unit s (unknown) date) Use unknown) (unknown) (no (unknown) (unknown) Tobacco Status (units (unknown) date) unknown) (unknown) (no (unknown) (unknown) Ulcerative colitis (units (unknown) date) unknown) (unknown) (no (unknown) (unknown) Vaginal delivery (units (unknown) date) unknown) (unknown) (no (unknown) (unknown) Visit Reasons: Pre (units (unknown) date) OP unknown) (unknown) (no (unknown) (unknown) Vitals (units (unkno wn) date) unknown) (unknown) (no (unknown) (unknown) Weight 152 lb (units ( unknown) date) unknown) (unknown) (no (unknown) (unknown) [Rx Confirmed (units ( unknown) date) 11/25/22] unknown) (unknown) (no (unknown) (unknown) acyclovir 400 mg (units (unknown) date) tablet See Rx unknown) Instructions .Route .COMPLEX #60 tabs 11/14/21 (unknown) (no (unknown) (unknown) adalimumab 40 (units ( unknown) date) mg/0.8 mL unknown) subcutaneous pen kit (Humira Pen) See Rx Instructions (unknown) (no (unknown) (unknown) alcohol intake: (units (unknown) date) never unknown) (unknown) (no (unknown) (unknown) alprazolam 0.25 mg (units (unknown) date) tablet 0.25 mg PO unknown) TID PRN anxiety #30 tabs 12/21/22 [Rx] (unknown) (no (unknown) (unknown) caregiver/support (units (unknown) date) person: No unknown) (unknown) (no (unknown) (unknown) fluticasone (units (un known) date) propionate 50 unknown) mcg/actuation nasal spray,suspension 1 spray (unknown) (no (unknown) (unknown) have occurred. If (units (unknown) date) there are any unknown) questions, please contact the Medical Records (unknown) (no (unknown) (unknown) household members: (units (unknown) date) spouse unknown) (unknown) (no (unknown) (unknown) housing: house (units (unknown) date) unknown) (unknown) (no (unknown) (unknown) intranasal DAILY (units (unknown) date) 01/20/21 [History unknown) Confirmed 11/25/22] (unknown) (no (unknown) (unknown) latex [LATEX] (units ( unknown) date) Allergy (Severe, unknown) Verified 11/20/22 16:06) (unknown) (no (unknown) (unknown) left ovarian cyst (units (unknown) date) unknown) (unknown) (no (unknown) (unknown) levonorgestrel 21 (units (unknown) date) mcg/24 hours (8 yrs) unknown) 52 mg intrauterine device (Mirena) 52 mg (unknown) (no (unknown) (unknown) levothyroxine 88 (units (unknown) date) mcg tablet unknown) (Euthyrox) See Rx Instructions .Route .COMPLEX #30 (unknown) (no (unknown) (unknown) lives (units (unkno wn) date) independently: Yes unknown) (unknown) (no (unknown) (unknown) marital status: (units (unknown) date) unknown) (unknown) (no (unknown) (unknown) may occur. (units (unk nown) date) Occasional unknown) wrong-word or 'sound-alike' substitutions may have (unknown) (no (unknown) (unknown) occurred due to the (unit s (unknown) date) inherent limitations unknown) of voice recognition software. Please (unknown) (no (unknown) (unknown) or ureters. She (units (unknown) date) also understands unknown) that there is a possibility of an open (unknown) (no (unknown) (unknown) oxycodone (units (unkn own) date) [OXYCODONE] Adverse unknown) Reaction (Severe, Verified 11/20/22 16:06) (unknown) (no (unknown) (unknown) par Q was held and (units (unknown) date) consent form was unknown) signed. (unknown) (no (unknown) (unknown) patient. The risks (units (unknown) date) including bleeding, unknown) infection, injury to the bowel, bladder, (unknown) (no (unknown) (unknown) pelvic pain (units (un known) date) unknown) (unknown) (no (unknown) (unknown) procedure. She (units (unknown) date) understands all of unknown) these risks and agrees to proceed. A full (unknown) (no (unknown) (unknown) pt here for pre op- (unit s (unknown) date) [facility]/B salpingectomy unknown) and removal of L ovarian cyst (unknown) (no (unknown) (unknown) read the note (units ( unknown) date) carefully and unknown) recognize, using context, where these substitutions (unknown) (no (unknown) (unknown) second hand (units (un known) date) exposure: No unknown) (unknown) (no (unknown) (unknown) software. 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 (unknown) (no (unknown) (unknown) substance use type: (unit s (unknown) date) marijuana unknown) (unknown) (no (unknown) (unknown) sumatriptan (units (un known) date) succinate 100 mg unknown) tablet 100 mg PO ONCE #10 tabs 12/03/18 [Rx (unknown) (no (unknown) (unknown) tabs 02/27/22 [Rx (units (unknown) date) Confirmed 11/25/22] unknown) (unknown) (no (unknown) (unknown) triamcinolone (units ( unknown) date) acetonide 0.1 % unknown) topical ointment 1 applic topical BID #15 grams (unknown) (no (unknown) (unknown) verapamil 40 mg (units (unknown) date) tablet 40 mg PO TID unknown) #90 tabs 11/19/22 [Rx Confirmed 11/25/22] Result panel 21 (unknown) (no date) (unknown) (unknown) (no value) (units 191 39-5 unknown) (unknown) (no date) (unknown) (unknown) (no value) (units 226 33-2 unknown) (unknown) (no date) (unknown) (unknown) (no value) (units 226 34-0 unknown) (unknown) (no date) (unknown) (unknown) (no value) (units 226 36-5 unknown) (unknown) (no date) (unknown) (unknown) (no value) (units 226 37-3 unknown) (unknown) (no date) (unknown) (unknown) (no value) (units 495 60-6 unknown) (unknown) (no date) (unknown) (unknown) (no value) (units 527 97-8 unknown) (unknown) (no date) (unknown) (unknown) (no value) (units (un known) unknown) (unknown) (no date) (unknown) (unknown) (no value) (units (un known) unknown) (unknown) (no date) (unknown) (unknown) (no value) (units (un known) unknown) (unknown) (no date) (unknown) (unknown) (no value) (units (un known) unknown) (unknown) (no date) (unknown) (unknown) (no value) (units (un known) unknown) (unknown) (no date) (unknown) (unknown) (no value) (units (un known) unknown) (unknown) (no date) (unknown) (unknown) (no value) (units (un known) unknown) Result panel 22 (unknown) (no date) (unknown) (unknown) Negative (units (unkn own) unknown) (unknown) (no date) (unknown) (unknown) Negative (units (unkn own) unknown) Result panel 23 (unknown) (no (unknown) (unknown) (no value) (units (unk nown) date) unknown) (unknown) (no (unknown) (unknown) (Euthyrox) (units (unk nown) date) .COMPLEX #30 tabs unknown) (unknown) (no (unknown) (unknown) (Mirena) (units (unkno wn) date) unknown) (unknown) (no (unknown) (unknown) (past 8 hours): (units (unknown) date) unknown) (unknown) (no (unknown) (unknown) .COMPLEX #60 tabs (units (unknown) date) unknown) (unknown) (no (unknown) (unknown) 11/25/22 Rx (units (un known) date) unknown) (unknown) (no (unknown) (unknown) 01/07/23 0953 (units ( unknown) date) unknown) (unknown) (no (unknown) (unknown) 01/07/23 (units (unkno wn) date) unknown) (unknown) (no (unknown) (unknown) 08:28 (units (unkno wn) date) unknown) (unknown) (no (unknown) (unknown) 08:34 (units (unkno wn) date) unknown) (unknown) (no (unknown) (unknown) [id number] (units (unkno wn) date) unknown) (unknown) (no (unknown) (unknown) 37-year-old (units (un known) date) 3 para 3 unknown) with pelvic congestion, pelvic pain, and a left (unknown) (no (unknown) (unknown) Abdomen: No (units (un known) date) scars. No unknown) hepatosplenomegaly . No masses palpable. (unknown) (no (unknown) (unknown) Sameera Hameed is (units (unknown) date) a 37 year old unknown) female 3 para 3 who presents for a (unknown) (no (unknown) (unknown) Age/Sex: 37 / F (units (unknown) date) unknown) (unknown) (no (unknown) (unknown) Allergies (units (unkn own) date) unknown) (unknown) (no (unknown) (unknown) Allergy/AdvReac (units (unknown) date) Type Severity unknown) Reaction Status Date / Time (unknown) (no (unknown) (unknown) Anti-Inflamma (units ( unknown) date) unknown) (unknown) (no (unknown) (unknown) Assessment + Plan (units (unknown) date) narrative: unknown) (unknown) (no (unknown) (unknown) Assessment + Plan (units (unknown) date) unknown) (unknown) (no (unknown) (unknown) Assessment: (units (un known) date) unknown) (unknown) (no (unknown) (unknown) Bimanual exam: 9 (units (unknown) date) Week size anterior unknown) uterus. Mobile. Left adnexal tenderness. (unknown) (no (unknown) (unknown) Blood Pressure (units (unknown) date) 130/81 unknown) (unknown) (no (unknown) (unknown) COVID-19 (units (unkno wn) date) unknown) (unknown) (no (unknown) (unknown) Cardiovascular: (units (unknown) date) Regular rate and unknown) rhythm, no murmurs, rubs, or gallops. (unknown) (no (unknown) (unknown) Cervix: Normal (units (unknown) date) unknown) (unknown) (no (unknown) (unknown) Changes to H+P: (units (unknown) date) No unknown) (unknown) (no (unknown) (unknown) Chronic sinusitis (units (unknown) date) unknown) (unknown) (no (unknown) (unknown) Criteria for (units (u nknown) date) continued unknown) procedure: Non-surgical alternatives not available or (unknown) (no (unknown) (unknown) DIDN'T EAT (units (unk nown) date) unknown) (unknown) (no (unknown) (unknown) : 1985 (units (unknown) date) Acct:[id number] unknown) (unknown) (no (unknown) (unknown) Date of Service: (units (unknown) date) 01/07/23 unknown) (unknown) (no (unknown) (unknown) Exam Narrative: (units (unknown) date) unknown) (unknown) (no (unknown) (unknown) Exam (units (unkno wn) date) unknown) (unknown) (no (unknown) (unknown) External (units (unkno wn) date) genitalia: Normal unknown) (unknown) (no (unknown) (unknown) Extremities: No (units (unknown) date) edema unknown) (unknown) (no (unknown) (unknown) FOR 4 DAYS (units (unk nown) date) unknown) (unknown) (no (unknown) (unknown) Genital herpes (units (unknown) date) unknown) (unknown) (no (unknown) (unknown) H+P completed (units (u nknown) date) within 30 days and unknown) has changed as indicated here:: Updated 01/07/23 (unknown) (no (unknown) (unknown) HEENT: No (units (unkn own) date) thyromegaly, no unknown) anterior cervical or supraclavicular lymphadenopathy. (unknown) (no (unknown) (unknown) History + (units (unkn own) date) Physical unknown) reviewed/Exam performed by Physician: Yes (unknown) (no (unknown) (unknown) History of (units (unk nown) date) Present Illness unknown) (unknown) (no (unknown) (unknown) History (units (unkno wn) date) unknown) (unknown) (no (unknown) (unknown) Home Medications (units (unknown) date) and Allergies unknown) (unknown) (no (unknown) (unknown) Home Medications (units (unknown) date) unknown) (unknown) (no (unknown) (unknown) Hypothyroidism (units (unknown) date) unknown) (unknown) (no (unknown) (unknown) Interval Note (units ( unknown) date) unknown) (unknown) (no (unknown) (unknown) [facility] (units (unknown) date) [address] unknown) [place] [address] (unknown) (no (unknown) (unknown) Laboratory (units (unk nown) date) Results - last 24 unknown) hr (unknown) (no (unknown) (unknown) Labs (units (unkno wn) date) unknown) (unknown) (no (unknown) (unknown) Labs: (units (unkno wn) date) unknown) (unknown) (no (unknown) (unknown) Laparoscopic (units (un known) date) supracervical unknown) hysterectomy/bilat eral salpingectomy/exci magda of left (unknown) (no (unknown) (unknown) Lungs:Clear to (units (unknown) date) auscultation unknown) bilaterally, no wheezes. (unknown) (no (unknown) (unknown) Medical History (units (unknown) date) (Reviewed 11/25/22 unknown) @ 16:27 by Emelyn Turner PA-C) (unknown) (no (unknown) (unknown) Medication (units (unk nown) date) Instructions unknown) Recorded Confirmed Type (unknown) (no (unknown) (unknown) Meds (units (unkno wn) date) unknown) (unknown) (no (unknown) (unknown) NSAIDS (units (unkno wn) date) (Non-Steroidal unknown) AdvReac Verified 01/07/23 09:00 (unknown) (no (unknown) (unknown) Narrative (units (unkn own) date) unknown) (unknown) (no (unknown) (unknown) Narrative: (units (unk nown) date) unknown) (unknown) (no (unknown) (unknown) REHAB RN History + (units (unknown) date) Physical unknown) (unknown) (no (unknown) (unknown) Objective (units (unkn own) date) unknown) (unknown) (no (unknown) (unknown) Oxygen Delivery (units (unknown) date) Method Room Air unknown) (unknown) (no (unknown) (unknown) PFSH (units (unkno wn) date) unknown) (unknown) (no (unknown) (unknown) Patient: (units (unkno wn) date) Sameera Hameed J unknown) MR#: [id number] (unknown) (no (unknown) (unknown) Plan: (units (unkno wn) date) unknown) (unknown) (no (unknown) (unknown) Pre-operative (units ( unknown) date) Note unknown) (unknown) (no (unknown) (unknown) Provider: (units (unkn own) date) Phoebe Borges unknown) (unknown) (no (unknown) (unknown) Pulse Oximetry 98 (units (unknown) date) unknown) (unknown) (no (unknown) (unknown) Pulse Rate 63 (units ( unknown) date) unknown) (unknown) (no (unknown) (unknown) Reason for (units (unk nown) date) admission: pelvic unknown) pain (unknown) (no (unknown) (unknown) Respiratory Rate (units (unknown) date) 16 unknown) (unknown) (no (unknown) (unknown) Right hip pain (units (unknown) date) unknown) (unknown) (no (unknown) (unknown) Rx (units (unkno wn) date) unknown) (unknown) (no (unknown) (unknown) SARS-CoV-2 (PCR) (units (unknown) date) Negative unknown) (unknown) (no (unknown) (unknown) Signed (units (unkno wn) date) By:<Electronically unknown) signed by Phoebe Borges MD> (unknown) (no (unknown) (unknown) Smoking Status: (units (unknown) date) Never smoker unknown) (unknown) (no (unknown) (unknown) Social History (units (unknown) date) (Reviewed 01/20/21 unknown) @ 18:22 by Sanjeev Phelps DO) (unknown) (no (unknown) (unknown) Temperature 98.8 (units (unknown) date) F unknown) (unknown) (no (unknown) (unknown) The risks, (units (unk nown) date) benefits, and unknown) alternatives to the procedure were explained to the (unknown) (no (unknown) (unknown) This is being (units ( unknown) date) done due to pelvic unknown) congestion, pelvic pain, and a left ovarian (unknown) (no (unknown) (unknown) Time Spent With (units (unknown) date) Patient unknown) (unknown) (no (unknown) (unknown) Time with (units (unkn own) date) patient: less than unknown) 30 minutes (unknown) (no (unknown) (unknown) Ulcerative (units (unk nown) date) colitis unknown) (unknown) (no (unknown) (unknown) Vagina: Normal (units (unknown) date) unknown) (unknown) (no (unknown) (unknown) Vaginal delivery (units (unknown) date) unknown) (unknown) (no (unknown) (unknown) Vital Signs (units (un known) date) unknown) (unknown) (no (unknown) (unknown) acyclovir 400 mg (units (unknown) date) tablet See Rx unknown) Instructions .Route 11/14/21 01/07/23 Rx (unknown) (no (unknown) (unknown) adalimumab 40 (units ( unknown) date) mg/0.8 mL See Rx unknown) Instructions SUBCUT .COMPLEX 03/10/21 11/25/22 (unknown) (no (unknown) (unknown) alcohol intake: (units (unknown) date) never unknown) (unknown) (no (unknown) (unknown) alprazolam 0.25 (units (unknown) date) mg tablet 0.25 mg unknown) PO TID PRN anxiety #30 tabs 12/21/22 Rx (unknown) (no (unknown) (unknown) appropriate per (units (unknown) date) current SOC unknown) (unknown) (no (unknown) (unknown) caregiver/support (units (unknown) date) person: No unknown) (unknown) (no (unknown) (unknown) cyst. (units (unkno wn) date) unknown) (unknown) (no (unknown) (unknown) fluticasone (units (un known) date) propionate 50 1 unknown) spray intranasal DAILY 01/20/21 11/25/22 History (unknown) (no (unknown) (unknown) household (units (unkn own) date) members: spouse unknown) and children (unknown) (no (unknown) (unknown) housing: house (units (unknown) date) unknown) (unknown) (no (unknown) (unknown) laparoscopic (units (u nknown) date) supracervical unknown) hysterectomy/bilat eral salpingectomy/farhan lety of left (unknown) (no (unknown) (unknown) latex [LATEX] (units ( unknown) date) Allergy Severe unknown) HIVES Verified 01/07/23 08:32 (unknown) (no (unknown) (unknown) levonorgestrel 21 (units (unknown) date) mcg/24 hours (8 52 unknown) mg INTRAU SEE INSTRUCTIONS #1 ea 03/15/17 (unknown) (no (unknown) (unknown) levothyroxine 88 (units (unknown) date) mcg tablet See Rx unknown) Instructions .Route 02/27/22 11/25/22 Rx (unknown) (no (unknown) (unknown) lives (units (unkno wn) date) independently: Yes unknown) (unknown) (no (unknown) (unknown) marital status: (units (unknown) date) unknown) (unknown) (no (unknown) (unknown) mcg/actuation (units ( unknown) date) nasal unknown) (unknown) (no (unknown) (unknown) or ureters. (units (un known) date) Consent form had unknown) been previously signed. A full par Q was held. (unknown) (no (unknown) (unknown) ovarian cyst (units (u nknown) date) unknown) (unknown) (no (unknown) (unknown) ovarian cyst. (units ( unknown) date) unknown) (unknown) (no (unknown) (unknown) oxycodone (units (unkn own) date) [OXYCODONE] unknown) AdvReac Severe HALLUCINATIONS, Verified 01/07/23 08:32 (unknown) (no (unknown) (unknown) patient. The (units (u nknown) date) risks including unknown) bleeding, infection, injury to the bowel, bladder, (unknown) (no (unknown) (unknown) second hand (units (un known) date) exposure: No unknown) (unknown) (no (unknown) (unknown) spray,suspension (units (unknown) date) unknown) (unknown) (no (unknown) (unknown) subcutaneous pen (units (unknown) date) kit (Humira Pen) unknown) (unknown) (no (unknown) (unknown) substance use (units ( unknown) date) type: marijuana unknown) (unknown) (no (unknown) (unknown) sumatriptan (units (unk nown) date) succinate 100 mg unknown) tablet 100 mg PO ONCE #10 tabs 12/03/18 11/25/22 Rx (unknown) (no (unknown) (unknown) topical ointment (units (unknown) date) unknown) (unknown) (no (unknown) (unknown) triamcinolone (units ( unknown) date) acetonide 0.1 % 1 unknown) applic topical BID #15 grams 05/30/21 11/25/22 (unknown) (no (unknown) (unknown) yrs) 52 mg (units (unk nown) date) intrauterine unknown) device Result panel 24 (unknown) (no (unknown) (unknown) (no value) (units (unk nown) date) unknown) (unknown) (no (unknown) (unknown) (unit s (unknown) date) unknown) (unknown) (no (unknown) (unknown) Performed at: 01 (unit s (unknown) date) unknown) (unknown) (no (unknown) (unknown) . 01 (units (unkno wn) date) unknown) (unknown) (no (unknown) (unknown) /[facility] 01/08/2023 (units (unknown) date) 0946 Local unknown) (unknown) (no (unknown) (unknown) [address] [place] [address] (units (unknown) date) unknown) (unknown) (no (unknown) (unknown) [address] [place] [address] (units (unknown) date) [place] [address], [place], unknown) [place] [phone] (unknown) (no (unknown) (unknown) [id number] (units (unkno wn) date) unknown) (unknown) (no (unknown) (unknown) A1-A2: Presumed (units (unknown) date) full thickness unknown) sections. (unknown) (no (unknown) (unknown) A3: [place]osa. (units (un known) date) unknown) (unknown) (no (unknown) (unknown) A4: Longer (units (unk nown) date) fallopian tube to unknown) include one-half of the bisected fimbriae and (unknown) (no (unknown) (unknown) A5: [place] (units (un known) date) fallopian tube to unknown) include one-half of the bisected fimbriae (unknown) (no (unknown) (unknown) [place] [address] (unit s (unknown) date) unknown) (unknown) (no (unknown) (unknown) CPT . (units (unkno wn) date) unknown) (unknown) (no (unknown) (unknown) Clinical history: . (unit s (unknown) date) unknown) (unknown) (no (unknown) (unknown) Collection Date: (units (unknown) date) 01/07/23 unknown) (unknown) (no (unknown) (unknown) DD/ (units (unknown) date) 0000 unknown) (unknown) (no (unknown) (unknown) Date of : (units (unknown) date) 1985 Admit unknown) Date: 01/07/23 (unknown) (no (unknown) (unknown) Diagnosis: (units (unk nown) date) unknown) (unknown) (no (unknown) (unknown) Dictated By: (units (u nknown) date) Dior Rodriguez MD unknown) (unknown) (no (unknown) (unknown) Electronically (units (unknown) date) signed: . unknown) (unknown) (no (unknown) (unknown) Gross description: (units (unknown) date) . unknown) (unknown) (no (unknown) (unknown) Hysterectomy with (units (unknown) date) Bilateral unknown) Salpingectomy (Weight 61 grams): (unknown) (no (unknown) (unknown) [facility] (units (unknown) date) unknown) (unknown) (no (unknown) (unknown) [facility] (units ( unknown) date) Number: [id number] unknown) (unknown) (no (unknown) (unknown) [facility] W/BILL (units (un known) date) SALPINGECTOMY unknown) (unknown) (no (unknown) (unknown) [facility] (units (unknown) date) Cytology unknown) (unknown) (no (unknown) (unknown) Longer fallopian (units (unknown) date) tube, complete unknown) cross-sections; negative for (unknown) (no (unknown) (unknown) MD Frank Gutierrez (units (unknown) date) Phone: [phone] unknown) (unknown) (no (unknown) (unknown) (units (unknown) date) Dictating Dr: Dior unknown) Michael AVALOS (unknown) (no (unknown) (unknown) MRV 01/09/2023 1538 (unit s (unknown) date) Local unknown) (unknown) (no (unknown) (unknown) Material submitted: (unit s (unknown) date) . unknown) (unknown) (no (unknown) (unknown) Myometrium with no (units (unknown) date) significant unknown) histomorphologic abnormality. (unknown) (no (unknown) (unknown) N94.89, N83.292, (units (unknown) date) R10.2 unknown) (unknown) (no (unknown) (unknown) I- [id number] (units (unknown) date) unknown) (unknown) (no (unknown) (unknown) No. of (units (unkno wn) date) containers..01 unknown) Tissue (unknown) (no (unknown) (unknown) Ordering Physician: (unit s (unknown) date) Phoebe Borges MD unknown) (unknown) (no (unknown) (unknown) Pathologist (units (un known) date) provided ICD-10: unknown) (unknown) (no (unknown) (unknown) Pathology (units (unkn own) date) Diagnostic Report unknown) (unknown) (no (unknown) (unknown) Patient name: (units ( unknown) date) Sameera Hameed unknown) (unknown) (no (unknown) (unknown) Portions of (units (un known) date) disordered unknown) proliferative endometrium; negative for (unknown) (no (unknown) (unknown) Dior Rodriguez, (units (unknown) date) , Pathologist unknown) (unknown) (no (unknown) (unknown) [place] fallopian (units (unknown) date) tube, complete unknown) cross-sections; negative for (unknown) (no (unknown) (unknown) Signed By: 01/09/23 (unit s (unknown) date) 1906 unknown) (unknown) (no (unknown) (unknown) Signed (units (unkno wn) date) unknown) (unknown) (no (unknown) (unknown) TD/TT: 01/09/23 (units (unknown) date) 190 unknown) (unknown) (no (unknown) (unknown) The specimen is (units (unknown) date) received in formalin unknown) labeled with the patient's name, , (unknown) (no (unknown) (unknown) Uterine serosa with (unit s (unknown) date) no significant unknown) histomorphologic abnormality. (unknown) (no (unknown) (unknown) Uterus and (units (unk nown) date) Bilateral Fallopian unknown) Tubes, Laparoscopic Supracervical (unknown) (no (unknown) (unknown) an unremarkable (units (unknown) date) stellate lumen. unknown) Children'S Book Author sections are submitted as (unknown) (no (unknown) (unknown) and 'uterus and (units (unknown) date) bilateral fallopian unknown) tubes', and consists of a fragmented (unknown) (no (unknown) (unknown) and cross-sections. (unit s (unknown) date) ([id number]) unknown) (unknown) (no (unknown) (unknown) cross-sections. (units (unknown) date) unknown) (unknown) (no (unknown) (unknown) evidence of (units (un known) date) adhesion or unknown) hemorrhage. The presumed endometrium is brown, (unknown) (no (unknown) (unknown) exogenous hormone (units (unknown) date) effect; patchy unknown) benign foreign body giant cell (unknown) (no (unknown) (unknown) follows: (units (unkno wn) date) unknown) (unknown) (no (unknown) (unknown) glandular (units (unkn own) date) hyperplasia, unknown) cytologic atypia, or malignancy; (unknown) (no (unknown) (unknown) has soto smooth (units (unknown) date) serosa with no unknown) cystic structures identified and sectioning (unknown) (no (unknown) (unknown) myometrium is soto (units (unknown) date) and trabecular unknown) measuring up to 2.2 cm in maximum (unknown) (no (unknown) (unknown) pseudodecidualized (units (unknown) date) stromal change unknown) present, suggestive of possible (unknown) (no (unknown) (unknown) reaction with (units ( unknown) date) calcifications and unknown) without associated epithelial cells. (unknown) (no (unknown) (unknown) reveals an (units (unk nown) date) unremarkable unknown) stellate lumen. The shorter fallopian tube has soto (unknown) (no (unknown) (unknown) significant atypia. (unit s (unknown) date) unknown) (unknown) (no (unknown) (unknown) smooth serosa with (units (unknown) date) no cystic structures unknown) identified and sectioning reveals (unknown) (no (unknown) (unknown) thickness with no (units (unknown) date) nodules or lesions unknown) identified. The longer fallopian tube (unknown) (no (unknown) (unknown) unoriented (units (unk nown) date) fimbriated fallopian unknown) tubes (7.9 x 0.6 cm and 6.2 x 0.7 cm), (unknown) (no (unknown) (unknown) uterus (61 grams, (units (unknown) date) aggregating to 10.4 unknown) x 6.2 x 3.1 cm), with two detached, (unknown) (no (unknown) (unknown) uterus - UTERUS AND (unit s (unknown) date) BILATERAL FALLOPIAN unknown) TUBES (unknown) (no (unknown) (unknown) velvety, and (units (u nknown) date) averages 0.2 cm unknown) thick with no lesions grossly identified. The (unknown) (no (unknown) (unknown) with no cervix or (units (unknown) date) additional adnexa. unknown) The serosa is soto and smooth with no Result panel 25 (unknown) (no (unknown) (unknown) (no value) (units (unk nown) date) unknown) (unknown) (no (unknown) (unknown) [id number] (units (unkno wn) date) unknown) (unknown) (no (unknown) (unknown) 8 week size (units (un known) date) anteverted uterus unknown) (unknown) (no (unknown) (unknown) Actual Procedure (units (unknown) date) Side Surgeon unknown) (unknown) (no (unknown) (unknown) Age/Sex: 37 / F (units (unknown) date) unknown) (unknown) (no (unknown) (unknown) Anesthesia Type: (units (unknown) date) General and Local unknown) (unknown) (no (unknown) (unknown) Applied: (units (unkno wn) date) catheter (Removed unknown) at the end of the case) (unknown) (no (unknown) (unknown) Layer Off: Hui (units (unknown) date) M [facility] unknown) (unknown) (no (unknown) (unknown) Blood products (units (unknown) date) transfused: none unknown) (unknown) (no (unknown) (unknown) Closure Type: (units ( unknown) date) primary unknown) (unknown) (no (unknown) (unknown) Complications: (units (unknown) date) none unknown) (unknown) (no (unknown) (unknown) Condition: (units (unk nown) date) stable unknown) (unknown) (no (unknown) (unknown) : 1985 (units (unknown) date) Acct:[id number] unknown) (unknown) (no (unknown) (unknown) Date of Service: (units (unknown) date) 01/07/23 unknown) (unknown) (no (unknown) (unknown) Date of (units (unkno wn) date) procedure: unknown) 01/07/23 (unknown) (no (unknown) (unknown) Disposition: (units (u nknown) date) PACU unknown) (unknown) (no (unknown) (unknown) Estimated blood (units (unknown) date) loss (mL): 75 unknown) (unknown) (no (unknown) (unknown) Findings: (units (unkn own) date) unknown) (unknown) (no (unknown) (unknown) Home after (units (unk nown) date) recovery unknown) (unknown) (no (unknown) (unknown) IUD removal Not (units (unknown) date) Applicable unknown) Phoebe Borges MD (unknown) (no (unknown) (unknown) Indications: (units (u nknown) date) unknown) (unknown) (no (unknown) (unknown) [facility] (units (unknown) date) [address] unknown) [place] [address] (unknown) (no (unknown) (unknown) Left ovarian (units (u nknown) date) cyst unknown) (unknown) (no (unknown) (unknown) Left ovarian (units (u nknown) date) cyst, 2 cm unknown) (unknown) (no (unknown) (unknown) Normal appendix (units (unknown) date) unknown) (unknown) (no (unknown) (unknown) Normal (units (unkno wn) date) gallbladder and unknown) liver (unknown) (no (unknown) (unknown) Normal right (units (u nknown) date) ovary unknown) (unknown) (no (unknown) (unknown) Normal tubes (units (u nknown) date) unknown) (unknown) (no (unknown) (unknown) Operation Date: (units (unknown) date) 01/07/23 09:15 unknown) (unknown) (no (unknown) (unknown) Operative (units (unkn own) date) Date/Time/Diagnos unknown) es (unknown) (no (unknown) (unknown) Operative Note (units (unknown) date) unknown) (unknown) (no (unknown) (unknown) Operative Notes (units (unknown) date) unknown) (unknown) (no (unknown) (unknown) Patient: (units (unkno wn) date) Sameera Hameed unknown) MR#: [id number] (unknown) (no (unknown) (unknown) Pelvic (units (unkno wn) date) congestion unknown) (unknown) (no (unknown) (unknown) Pelvic pain (units (un known) date) unknown) (unknown) (no (unknown) (unknown) Plan for (units (unkno wn) date) aftercare: unknown) (unknown) (no (unknown) (unknown) Post-op (units (unkno wn) date) diagnosis: same unknown) (unknown) (no (unknown) (unknown) Post-operative (units (unknown) date) unknown) (unknown) (no (unknown) (unknown) Pre-op (units (unkno wn) date) diagnosis: Pelvic unknown) congestion (unknown) (no (unknown) (unknown) Procedure + (units (un known) date) Clinicians unknown) (unknown) (no (unknown) (unknown) Procedure: (units (unk nown) date) unknown) (unknown) (no (unknown) (unknown) Procedures (units (unk nown) date) unknown) (unknown) (no (unknown) (unknown) Provider: (units (unkn own) date) Phoebe Borges unknown) (unknown) (no (unknown) (unknown) Signed By: (units (unk nown) date) unknown) (unknown) (no (unknown) (unknown) Specimen(s): (units (u nknown) date) left tube, right unknown) tube and uterus (unknown) (no (unknown) (unknown) Surgeon: (units (unkno wn) date) Phoebe Borges unknown) (unknown) (no (unknown) (unknown) Time of (units (unkno wn) date) procedure: 12:06 unknown) (unknown) (no (unknown) (unknown) p Laparoscopic (units (unknown) date) Supracervical unknown) Hysterectomy, bilateral salpingectomy and Mirena Result panel 26 (unknown) (no (unknown) (unknown) (no value) (units (unk nown) date) unknown) (unknown) (no (unknown) (unknown) [id number] (units (unkno wn) date) unknown) (unknown) (no (unknown) (unknown) [address] the (units (unkno wn) date) mesosalpinx was unknown) cauterized and cut all the way down to the cornua of (unknown) (no (unknown) (unknown) 8 week size (units (un known) date) anteverted uterus unknown) (unknown) (no (unknown) (unknown) Actual Procedure (units (unknown) date) Side Surgeon unknown) (unknown) (no (unknown) (unknown) Age/Sex: 37 / F (units (unknown) date) unknown) (unknown) (no (unknown) (unknown) Anesthesia Type: (units (unknown) date) General and Local unknown) (unknown) (no (unknown) (unknown) Applied: (units (unkno wn) date) catheter (Removed unknown) at the end of the case) (unknown) (no (unknown) (unknown) Layer Off: Hui (units (unknown) date) M [employer] unknown) (unknown) (no (unknown) (unknown) Blood products (units (unknown) date) transfused: none unknown) (unknown) (no (unknown) (unknown) Closure Type: (units ( unknown) date) primary unknown) (unknown) (no (unknown) (unknown) Complications: (units (unknown) date) none unknown) (unknown) (no (unknown) (unknown) Condition: (units (unk nown) date) stable unknown) (unknown) (no (unknown) (unknown) : 1985 (units (unknown) date) Acct:[id number] unknown) (unknown) (no (unknown) (unknown) Date of Service: (units (unknown) date) 01/07/23 unknown) (unknown) (no (unknown) (unknown) Date of (units (unkno wn) date) procedure: unknown) 01/07/23 (unknown) (no (unknown) (unknown) Disposition: (units (u nknown) date) PACU unknown) (unknown) (no (unknown) (unknown) Estimated blood (units (unknown) date) loss (mL): 75 unknown) (unknown) (no (unknown) (unknown) Findings: (units (unkn own) date) unknown) (unknown) (no (unknown) (unknown) Hemostasis was (units (unknown) date) achieved. The unknown) bladder flap was created using the plasma kinetic (unknown) (no (unknown) (unknown) Home after (units (unk nown) date) recovery unknown) (unknown) (no (unknown) (unknown) IUD removal Not (units (unknown) date) Applicable unknown) Phoebe Borges MD (unknown) (no (unknown) (unknown) Indications: (units (u nknown) date) unknown) (unknown) (no (unknown) (unknown) [facility] (units (unknown) date) [address] unknown) [place] [address] (unknown) (no (unknown) (unknown) Left ovarian (units (u nknown) date) cyst unknown) (unknown) (no (unknown) (unknown) Left ovarian (units (u nknown) date) cyst, 2 cm unknown) (unknown) (no (unknown) (unknown) No bleeding was (units (unknown) date) noted. The unknown) instruments are removed from the abdomen. The CO2 (unknown) (no (unknown) (unknown) Normal appendix (units (unknown) date) unknown) (unknown) (no (unknown) (unknown) Normal (units (unkno wn) date) gallbladder and unknown) liver (unknown) (no (unknown) (unknown) Normal right (units (u nknown) date) ovary unknown) (unknown) (no (unknown) (unknown) Normal tubes (units (u nknown) date) unknown) (unknown) (no (unknown) (unknown) Operation Date: (units (unknown) date) 01/07/23 09:15 unknown) (unknown) (no (unknown) (unknown) Operative (units (unkn own) date) Date/Time/Diagnos unknown) es (unknown) (no (unknown) (unknown) Operative Note (units (unknown) date) unknown) (unknown) (no (unknown) (unknown) Operative Notes (units (unknown) date) unknown) (unknown) (no (unknown) (unknown) Patient: (units (unkno wn) date) Sameera Hameed unknown) MR#: [id number] (unknown) (no (unknown) (unknown) Pelvic (units (unkno wn) date) congestion unknown) (unknown) (no (unknown) (unknown) Pelvic pain (units (un known) date) unknown) (unknown) (no (unknown) (unknown) Plan for (units (unkno wn) date) aftercare: unknown) (unknown) (no (unknown) (unknown) Post-op (units (unkno wn) date) diagnosis: same unknown) (unknown) (no (unknown) (unknown) Post-operative (units (unknown) date) unknown) (unknown) (no (unknown) (unknown) Pre-op (units (unkno wn) date) diagnosis: Pelvic unknown) congestion (unknown) (no (unknown) (unknown) Procedure + (units (un known) date) Clinicians unknown) (unknown) (no (unknown) (unknown) Procedure in (units (u nknown) date) detail: unknown) (unknown) (no (unknown) (unknown) Procedure: (units (unk nown) date) unknown) (unknown) (no (unknown) (unknown) Procedures (units (unk nown) date) unknown) (unknown) (no (unknown) (unknown) Provider: (units ( own) date) Phoebe Borges unknown) (unknown) (no (unknown) (unknown) Signed By: (units (unk nown) date) unknown) (unknown) (no (unknown) (unknown) Specimen(s): (units (u nknown) date) left tube, right unknown) tube and uterus (unknown) (no (unknown) (unknown) Surgeon: (units ( wn) ) Phoebe Borges unknown) (unknown) (no (unknown) (unknown) The Verees (units (unk nown) date) needle was unknown) removed. A 5 mm trocar was placed without difficulty. 2 (unknown) (no (unknown) (unknown) The patient was (units (unknown) date) taken to the unknown) operating room where she was placed in the dorsal (unknown) (no (unknown) (unknown) Time of (units (unkno wn) date) procedure: 12:06 unknown) (unknown) (no (unknown) (unknown) Two 5 mm trocars (units (unknown) date) were placed under unknown) direct visualization. The right tube was (unknown) (no (unknown) (unknown) Using the (units (unkn own) date) Endoloop, the unknown) cervix was amputated from the uterus 2 cm above the (unknown) (no (unknown) (unknown) Vicryl. All of (units (unknown) date) the incisions unknown) were closed with 4-0 Biosyn in a subcuticular (unknown) (no (unknown) (unknown) above the pubic (units (unknown) date) symphysis. A 12 unknown) mm trocar was placed. An Endobag was placed (unknown) (no (unknown) (unknown) and instrument (units (unknown) date) counts were unknown) correct x-2. The patient tolerated the procedure (unknown) (no (unknown) (unknown) difficulty. The (units (unknown) date) cervical os was unknown) sequentially dilated until the ZUMI uterine (unknown) (no (unknown) (unknown) fashion. The (units (u nknown) date) moistened sponge unknown) stick was removed from the vagina. Sponge, lap, (unknown) (no (unknown) (unknown) grasped with an (units (unknown) date) atraumatic unknown) grasper. Using the plasma kinetic with settings of (unknown) (no (unknown) (unknown) grasper. The (units (u nknown) date) utero-ovarian unknown) ligaments were cauterized and cut. The round (unknown) (no (unknown) (unknown) hysterectomy and (units (unknown) date) bilateral unknown) salpingectomy (unknown) (no (unknown) (unknown) into the vagina (units (unknown) date) and the anterior unknown) lip of the cervix grasped with a single-tooth (unknown) (no (unknown) (unknown) into the vagina. (units (unknown) date) 6 mL of half unknown) percent Marcaine with epinephrine were injected (unknown) (no (unknown) (unknown) kinetic, and the (units (unknown) date) bladder taken unknown) down off the lower uterine segment and cervix. (unknown) (no (unknown) (unknown) ligament and (units (u nknown) date) broad ligament unknown) was cauterized and cut with plasma kinetic. (unknown) (no (unknown) (unknown) manipulator (units (un known) date) could pass easily unknown) into the endometrial cavity. The single-tooth (unknown) (no (unknown) (unknown) morcellated in (units (unknown) date) approximately 10 unknown) pieces. The Endobag was removed from the (unknown) (no (unknown) (unknown) other incisions (units (unknown) date) were made 4 cm unknown) lateral to the umbilicus after 5 mL of half (unknown) (no (unknown) (unknown) p Laparoscopic (units (unknown) date) Supracervical unknown) Hysterectomy, bilateral salpingectomy and Mirena (unknown) (no (unknown) (unknown) percent Marcaine (units (unknown) date) with epinephrine unknown) were injected. These were 5 mm incisions. (unknown) (no (unknown) (unknown) peritoneal (units (unk nown) date) cavity. The unknown) pelvis was copiously irrigated with warm normal saline. (unknown) (no (unknown) (unknown) she was placed (units (unknown) date) in the dorsal unknown) lithotomy position, and prepped and draped in the (unknown) (no (unknown) (unknown) speculum was (units (u nknown) date) removed from the unknown) vagina. Attention was then turned to the abdomen (unknown) (no (unknown) (unknown) supine position. (units (unknown) date) After adequate unknown) general endotracheal anesthesia was achieved, (unknown) (no (unknown) (unknown) tenaculum was (units ( unknown) date) removed from the unknown) anterior lip of the cervix, and the bivalve (unknown) (no (unknown) (unknown) tenaculum. The (units (unknown) date) Mirena IUD unknown) strings were grasped and it was removed without (unknown) (no (unknown) (unknown) the cervix, and (units (unknown) date) this was unknown) cauterized for hemostasis. A sponge stick was placed (unknown) (no (unknown) (unknown) the left side. (units (unknown) date) The remainder of unknown) the bladder flap was created using the plasma (unknown) (no (unknown) (unknown) the peritoneal (units (unknown) date) cavity, and its unknown) placement confirmed by aspiration and drop test. (unknown) (no (unknown) (unknown) the uterus. The (units (unknown) date) cornua of the unknown) uterus was then grasped with an atraumatic (unknown) (no (unknown) (unknown) through the (units (un known) date) suprapubic trocar unknown) and the uterus placed into the Endobag. The (unknown) (no (unknown) (unknown) trocar was (units (unk nown) date) removed. The unknown) Bradford placed into the endobag. The uterus was hand (unknown) (no (unknown) (unknown) umbilical fold. (units (unknown) date) A 5 mm incision unknown) was made. The Verees needle was placed into (unknown) (no (unknown) (unknown) usual sterile (units ( unknown) date) fashion. A unknown) timeout was performed. A bivalve speculum was placed (unknown) (no (unknown) (unknown) uterosacral (units (un known) date) ligaments, after unknown) the ZUMI uterine manipulator was removed from the (unknown) (no (unknown) (unknown) uterus. There (units ( unknown) date) was a small unknown) amount of bleeding noted from the posterior edge of (unknown) (no (unknown) (unknown) was allowed to (units (unknown) date) escape. The unknown) suprapubic incision was closed on the fascia with 0 (unknown) (no (unknown) (unknown) well, was taken (units (unknown) date) to PACU in stable unknown) condition. A laparoscopic supracervical (unknown) (no (unknown) (unknown) were extensively (units (unknown) date) cauterized with unknown) plasma kinetic. All of this was repeated on (unknown) (no (unknown) (unknown) where 6 mL of (units ( unknown) date) half percent unknown) Marcaine with epinephrine were injected in the (unknown) (no (unknown) (unknown) with cautery and (units (unknown) date) cut detention unknown) across. The uterine arteries on the right side Result panel 27 (unknown) (no (unknown) (unknown) (no value) (units (unk nown) date) unknown) (unknown) (no (unknown) (unknown) [id number] (units (unkno wn) date) unknown) (unknown) (no (unknown) (unknown) 8 week size (units (un known) date) anteverted uterus unknown) (unknown) (no (unknown) (unknown) Actual Procedure (units (unknown) date) Side Surgeon unknown) (unknown) (no (unknown) (unknown) Age/Sex: 37 / F (units (unknown) date) unknown) (unknown) (no (unknown) (unknown) An Endobag was (units (unknown) date) placed through unknown) the suprapubic trocar and the uterus and tubes (unknown) (no (unknown) (unknown) Anesthesia Type: (units (unknown) date) General and Local unknown) (unknown) (no (unknown) (unknown) Applied: (units (unkno wn) date) catheter (Removed unknown) at the end of the case) (unknown) (no (unknown) (unknown) Layer Off: Hui (units (unknown) date) Adryan Hurtado unknown) (unknown) (no (unknown) (unknown) Blood products (units (unknown) date) transfused: none unknown) (unknown) (no (unknown) (unknown) Closure Type: (units ( unknown) date) primary unknown) (unknown) (no (unknown) (unknown) Complications: (units (unknown) date) none unknown) (unknown) (no (unknown) (unknown) Condition: (units (unk nown) date) stable unknown) (unknown) (no (unknown) (unknown) : 1985 (units (unknown) date) Acct:[id number] unknown) (unknown) (no (unknown) (unknown) Date of Service: (units (unknown) date) 01/07/23 unknown) (unknown) (no (unknown) (unknown) Date of (units (unkno wn) date) procedure: unknown) 01/07/23 (unknown) (no (unknown) (unknown) Disposition: (units (u nknown) date) PACU unknown) (unknown) (no (unknown) (unknown) Estimated blood (units (unknown) date) loss (mL): 75 unknown) (unknown) (no (unknown) (unknown) Findings: (units (unkn own) date) unknown) (unknown) (no (unknown) (unknown) Home after (units (unk nown) date) recovery unknown) (unknown) (no (unknown) (unknown) IUD removal Not (units (unknown) date) Applicable unknown) Phoebe Borges MD (unknown) (no (unknown) (unknown) Indications: (units (u nknown) date) unknown) (unknown) (no (unknown) (unknown) [facility] (units (unknown) date) [address] unknown) [place] [address] (unknown) (no (unknown) (unknown) Left ovarian (units (u nknown) date) cyst unknown) (unknown) (no (unknown) (unknown) Left ovarian (units (u nknown) date) cyst, 2 cm unknown) (unknown) (no (unknown) (unknown) Normal appendix (units (unknown) date) unknown) (unknown) (no (unknown) (unknown) Normal (units (unkno wn) date) gallbladder and unknown) liver (unknown) (no (unknown) (unknown) Normal right (units (u nknown) date) ovary unknown) (unknown) (no (unknown) (unknown) Normal tubes (units (u nknown) date) unknown) (unknown) (no (unknown) (unknown) Operation Date: (units (unknown) date) 01/07/23 09:15 unknown) (unknown) (no (unknown) (unknown) Operative (units (unkn own) date) Date/Time/Diagnos unknown) es (unknown) (no (unknown) (unknown) Operative Note (units (unknown) date) unknown) (unknown) (no (unknown) (unknown) Operative Notes (units (unknown) date) unknown) (unknown) (no (unknown) (unknown) Patient: (units (unkno wn) date) ZariSameera J unknown) MR#: [id number] (unknown) (no (unknown) (unknown) Pelvic (units (unkno wn) date) congestion unknown) (unknown) (no (unknown) (unknown) Pelvic pain (units (un known) date) unknown) (unknown) (no (unknown) (unknown) Plan for (units (unkno wn) date) aftercare: unknown) (unknown) (no (unknown) (unknown) Post-op (units (unkno wn) date) diagnosis: same unknown) (unknown) (no (unknown) (unknown) Post-operative (units (unknown) date) unknown) (unknown) (no (unknown) (unknown) Powerseal. All (units (unknown) date) of this was unknown) repeated on the left side. The remainder of the (unknown) (no (unknown) (unknown) Pre-op (units (unkno wn) date) diagnosis: Pelvic unknown) congestion (unknown) (no (unknown) (unknown) Procedure + (units (un known) date) Clinicians unknown) (unknown) (no (unknown) (unknown) Procedure in (units (u nknown) date) detail: unknown) (unknown) (no (unknown) (unknown) Procedure: (units (unk nown) date) unknown) (unknown) (no (unknown) (unknown) Procedures (units (unk nown) date) unknown) (unknown) (no (unknown) (unknown) Provider: (units ( own) ) Phoebe Borges unknown) (unknown) (no (unknown) (unknown) Signed By: (units (unk nown) date) unknown) (unknown) (no (unknown) (unknown) Specimen(s): (units (u nknown) date) left tube, right unknown) tube and uterus (unknown) (no (unknown) (unknown) Surgeon: (units (o wn) ) Phoebe Borges unknown) (unknown) (no (unknown) (unknown) The Verees (units (unk nown) ) needle was unknown) removed. A 5 mm trocar was placed without difficulty. 2 (unknown) (no (unknown) (unknown) The patient was (units (unknown) date) taken to the unknown) operating room where she was placed in the dorsal (unknown) (no (unknown) (unknown) Time of (units (unkno wn) date) procedure: 12:06 unknown) (unknown) (no (unknown) (unknown) Two 5 mm trocars (units (unknown) date) were placed under unknown) direct visualization. The right tube was (unknown) (no (unknown) (unknown) bladder flap was (units (unknown) date) created using the unknown) Powerseal, and the bladder taken down off the (unknown) (no (unknown) (unknown) cauterized and (units (unknown) date) cut all the way unknown) down to the cornua of the uterus. The cornua of (unknown) (no (unknown) (unknown) cauterized and (units (unknown) date) cut with the unknown) Powerseal. Hemostasis was achieved. The bladder (unknown) (no (unknown) (unknown) cauterized with (units (unknown) date) the spatula unknown) cautery. 6 mL of half percent Marcaine with (unknown) (no (unknown) (unknown) difficulty. The (units (unknown) date) cervical os was unknown) sequentially dilated until the ZUMI uterine (unknown) (no (unknown) (unknown) epinephrine were (units (unknown) date) injected above unknown) the pubic symphysis. A 12 mm trocar was placed. (unknown) (no (unknown) (unknown) flap was created (units (unknown) date) using the unknown) Powerseal with cautery and cut detention across. The (unknown) (no (unknown) (unknown) from the uterus (units (unknown) date) 2 cm above the unknown) uterosacral ligaments, after the ZUMI uterine (unknown) (no (unknown) (unknown) grasped with an (units (unknown) date) atraumatic unknown) grasper. Using the Powerseal, the mesosalpinx was (unknown) (no (unknown) (unknown) hemostasis. A (units ( unknown) date) sponge stick was unknown) placed into the vagina. The endocervix was (unknown) (no (unknown) (unknown) in a (units (unkno wn) date) subcuticular unknown) fashion. The moistened sponge stick was removed from the (unknown) (no (unknown) (unknown) into the vagina (units (unknown) date) and the anterior unknown) lip of the cervix grasped with a single-tooth (unknown) (no (unknown) (unknown) laparoscopic (units (u nknown) date) supracervical unknown) hysterectomy and bilateral salpingectomy (unknown) (no (unknown) (unknown) ligaments were (units (unknown) date) cauterized and unknown) cut. The round ligament and broad ligament was (unknown) (no (unknown) (unknown) lower uterine (units ( unknown) date) segment and unknown) cervix. Using the [place], the cervix was amputated (unknown) (no (unknown) (unknown) manipulator (units (un known) date) could pass easily unknown) into the endometrial cavity. The single-tooth (unknown) (no (unknown) (unknown) manipulator was (units (unknown) date) removed from the unknown) uterus. There was a small amount of bleeding (unknown) (no (unknown) (unknown) noted from the (units (unknown) date) posterior edge of unknown) the cervix, and this was cauterized for (unknown) (no (unknown) (unknown) on the fascia (units ( unknown) date) with 0 Vicryl. unknown) All of the incisions were closed with 4-0 Biosyn (unknown) (no (unknown) (unknown) other incisions (units (unknown) date) were made 4 cm unknown) lateral to the umbilicus after 5 mL of half (unknown) (no (unknown) (unknown) p Laparoscopic (units (unknown) date) Supracervical unknown) Hysterectomy, bilateral salpingectomy and Mirena (unknown) (no (unknown) (unknown) percent Marcaine (units (unknown) date) with epinephrine unknown) were injected. These were 5 mm incisions. (unknown) (no (unknown) (unknown) she was placed (units (unknown) date) in the dorsal unknown) lithotomy position, and prepped and draped in the (unknown) (no (unknown) (unknown) speculum was (units (u nknown) date) removed from the unknown) vagina. Attention was then turned to the abdomen (unknown) (no (unknown) (unknown) supine position. (units (unknown) date) After adequate unknown) general endotracheal anesthesia was achieved, (unknown) (no (unknown) (unknown) tenaculum was (units ( unknown) date) removed from the unknown) anterior lip of the cervix, and the bivalve (unknown) (no (unknown) (unknown) tenaculum. The (units (unknown) date) Mirena IUD unknown) strings were grasped and it was removed without (unknown) (no (unknown) (unknown) the abdomen. The (units (unknown) date) CO2 was allowed unknown) to escape. The suprapubic incision was closed (unknown) (no (unknown) (unknown) the peritoneal (units (unknown) date) cavity, and its unknown) placement confirmed by aspiration and drop test. (unknown) (no (unknown) (unknown) the uterus was (units (unknown) date) then grasped with unknown) an atraumatic grasper. The utero-ovarian (unknown) (no (unknown) (unknown) tolerated the (units ( unknown) date) procedure well, unknown) was taken to PACU in stable condition. A (unknown) (no (unknown) (unknown) umbilical fold. (units (unknown) date) A 5 mm incision unknown) was made. The Verees needle was placed into (unknown) (no (unknown) (unknown) usual sterile (units ( unknown) date) fashion. A unknown) timeout was performed. A bivalve speculum was placed (unknown) (no (unknown) (unknown) uterine arteries (units (unknown) date) on the right side unknown) were extensively cauterized with the (unknown) (no (unknown) (unknown) uterus and tubes (units (unknown) date) were hand unknown) morcellated in approximately 12 pieces. The Endobag (unknown) (no (unknown) (unknown) vagina. Sponge, (units (unknown) date) lap, and unknown) instrument counts were correct x-2. The patient (unknown) (no (unknown) (unknown) warm normal (units (un known) date) saline. No unknown) bleeding was noted. The instruments are removed from (unknown) (no (unknown) (unknown) was removed from (units (unknown) date) the peritoneal unknown) cavity. The pelvis was copiously irrigated with (unknown) (no (unknown) (unknown) were brought up (units (unknown) date) through the skin. unknown) The Bradford was placed into the endobag. The (unknown) (no (unknown) (unknown) were placed into (units (unknown) date) the Endobag. The unknown) trocar was removed. The edges of the endobag (unknown) (no (unknown) (unknown) where 6 mL of (units ( unknown) date) half percent unknown) Marcaine with epinephrine were injected in the Result panel 28 (unknown) (no (unknown) (unknown) (no value) (units (unk nown) date) unknown) (unknown) (no (unknown) (unknown) 01/10/23 1534 (units ( unknown) date) unknown) (unknown) (no (unknown) (unknown) [id number] (units (unkno wn) date) unknown) (unknown) (no (unknown) (unknown) 8 week size (units (un known) date) anteverted uterus unknown) (unknown) (no (unknown) (unknown) Actual Procedure (units (unknown) date) Side Surgeon unknown) (unknown) (no (unknown) (unknown) Age/Sex: 37 / F (units (unknown) date) unknown) (unknown) (no (unknown) (unknown) An Endobag was (units (unknown) date) placed through unknown) the suprapubic trocar and the uterus and tubes (unknown) (no (unknown) (unknown) Anesthesia Type: (units (unknown) date) General and Local unknown) (unknown) (no (unknown) (unknown) Applied: (units (unkno wn) date) catheter (Removed unknown) at the end of the case) (unknown) (no (unknown) (unknown) Layer Off: Hui (units (unknown) date) Adryan Hurtado unknown) (unknown) (no (unknown) (unknown) Blood products (units (unknown) date) transfused: none unknown) (unknown) (no (unknown) (unknown) Closure Type: (units ( unknown) date) primary unknown) (unknown) (no (unknown) (unknown) Complications: (units (unknown) date) none unknown) (unknown) (no (unknown) (unknown) Condition: (units (unk nown) date) stable unknown) (unknown) (no (unknown) (unknown) : 1985 (units (unknown) date) Acct:[id number] unknown) (unknown) (no (unknown) (unknown) Date of Service: (units (unknown) date) 01/07/23 unknown) (unknown) (no (unknown) (unknown) Date of (units (unkno wn) date) procedure: unknown) 01/07/23 (unknown) (no (unknown) (unknown) Disposition: (units (u nknown) date) PACU unknown) (unknown) (no (unknown) (unknown) Estimated blood (units (unknown) date) loss (mL): 75 unknown) (unknown) (no (unknown) (unknown) Findings: (units (unkn own) date) unknown) (unknown) (no (unknown) (unknown) Home after (units (unk nown) date) recovery unknown) (unknown) (no (unknown) (unknown) IUD removal Not (units (unknown) date) Applicable unknown) Phoebe Borges MD (unknown) (no (unknown) (unknown) Indications: (units (u nknown) date) unknown) (unknown) (no (unknown) (unknown) [facility] (units (unknown) date) [address] unknown) [place] [address] (unknown) (no (unknown) (unknown) Left ovarian (units (u nknown) date) cyst unknown) (unknown) (no (unknown) (unknown) Left ovarian (units (u nknown) date) cyst, 2 cm unknown) (unknown) (no (unknown) (unknown) Normal appendix (units (unknown) date) unknown) (unknown) (no (unknown) (unknown) Normal (units (unkno wn) date) gallbladder and unknown) liver (unknown) (no (unknown) (unknown) Normal right (units (u nknown) date) ovary unknown) (unknown) (no (unknown) (unknown) Normal tubes (units (u nknown) date) unknown) (unknown) (no (unknown) (unknown) Operation Date: (units (unknown) date) 01/07/23 09:15 unknown) (unknown) (no (unknown) (unknown) Operative (units (unkn own) date) Date/Time/Diagnos unknown) es (unknown) (no (unknown) (unknown) Operative Note (units (unknown) date) unknown) (unknown) (no (unknown) (unknown) Operative Notes (units (unknown) date) unknown) (unknown) (no (unknown) (unknown) Patient: (units (unkno wn) date) Hameed,Sameera J unknown) MR#: [id number] (unknown) (no (unknown) (unknown) Pelvic (units (unkno wn) date) congestion unknown) (unknown) (no (unknown) (unknown) Pelvic pain (units (un known) date) unknown) (unknown) (no (unknown) (unknown) Plan for (units (unkno wn) date) aftercare: unknown) (unknown) (no (unknown) (unknown) Post-op (units (unkno wn) date) diagnosis: same unknown) (unknown) (no (unknown) (unknown) Post-operative (units (unknown) date) unknown) (unknown) (no (unknown) (unknown) Powerseal. All (units (unknown) date) of this was unknown) repeated on the left side. The remainder of the (unknown) (no (unknown) (unknown) Pre-op (units (unkno wn) date) diagnosis: Pelvic unknown) congestion (unknown) (no (unknown) (unknown) Procedure + (units (un known) date) Clinicians unknown) (unknown) (no (unknown) (unknown) Procedure in (units (u nknown) date) detail: unknown) (unknown) (no (unknown) (unknown) Procedure: (units (unk nown) date) unknown) (unknown) (no (unknown) (unknown) Procedures (units (unk nown) date) unknown) (unknown) (no (unknown) (unknown) Provider: (units (unkn own) date) Phoebe Borges unknown) (unknown) (no (unknown) (unknown) Signed (units (unkno wn) date) By:<Electronicall unknown) y signed by Phoebe Borges MD> (unknown) (no (unknown) (unknown) Specimen(s): (units (u nknown) date) left tube, right unknown) tube and uterus (unknown) (no (unknown) (unknown) Surgeon: (units (unkno wn) date) Phoebe Borges unknown) (unknown) (no (unknown) (unknown) The Verees (units (unk nown) date) needle was unknown) removed. A 5 mm trocar was placed without difficulty. 2 (unknown) (no (unknown) (unknown) The patient was (units (unknown) date) taken to the unknown) operating room where she was placed in the dorsal (unknown) (no (unknown) (unknown) Time of (units (unkno wn) date) procedure: 12:06 unknown) (unknown) (no (unknown) (unknown) Two 5 mm trocars (units (unknown) date) were placed under unknown) direct visualization. The right tube was (unknown) (no (unknown) (unknown) bladder flap was (units (unknown) date) created using the unknown) Powerseal, and the bladder taken down off the (unknown) (no (unknown) (unknown) cauterized and (units (unknown) date) cut all the way unknown) down to the cornua of the uterus. The cornua of (unknown) (no (unknown) (unknown) cauterized and (units (unknown) date) cut with the unknown) Powerseal. Hemostasis was achieved. The bladder (unknown) (no (unknown) (unknown) cauterized with (units (unknown) date) the spatula unknown) cautery. 6 mL of half percent Marcaine with (unknown) (no (unknown) (unknown) difficulty. The (units (unknown) date) cervical os was unknown) sequentially dilated until the ZUMI uterine (unknown) (no (unknown) (unknown) epinephrine were (units (unknown) date) injected above unknown) the pubic symphysis. A 12 mm trocar was placed. (unknown) (no (unknown) (unknown) flap was created (units (unknown) date) using the unknown) Powerseal with cautery and cut detention across. The (unknown) (no (unknown) (unknown) from the uterus (units (unknown) date) 2 cm above the unknown) uterosacral ligaments, after the ZUMI uterine (unknown) (no (unknown) (unknown) grasped with an (units (unknown) date) atraumatic unknown) grasper. Using the Powerseal, the mesosalpinx was (unknown) (no (unknown) (unknown) hemostasis. A (units ( unknown) date) sponge stick was unknown) placed into the vagina. The endocervix was (unknown) (no (unknown) (unknown) in a (units (unkno wn) date) subcuticular unknown) fashion. The moistened sponge stick was removed from the (unknown) (no (unknown) (unknown) into the vagina (units (unknown) date) and the anterior unknown) lip of the cervix grasped with a single-tooth (unknown) (no (unknown) (unknown) ligaments were (units (unknown) date) cauterized and unknown) cut. The round ligament and broad ligament was (unknown) (no (unknown) (unknown) lower uterine (units ( unknown) date) segment and unknown) cervix. Using the [place], the cervix was amputated (unknown) (no (unknown) (unknown) manipulator (units (un known) date) could pass easily unknown) into the endometrial cavity. The single-tooth (unknown) (no (unknown) (unknown) manipulator was (units (unknown) date) removed from the unknown) uterus. There was a small amount of bleeding (unknown) (no (unknown) (unknown) noted from the (units (unknown) date) posterior edge of unknown) the cervix, and this was cauterized for (unknown) (no (unknown) (unknown) on the fascia (units ( unknown) date) with 0 Vicryl. unknown) All of the incisions were closed with 4-0 Biosyn (unknown) (no (unknown) (unknown) other incisions (units (unknown) date) were made 4 cm unknown) lateral to the umbilicus after 5 mL of half (unknown) (no (unknown) (unknown) p Laparoscopic (units (unknown) date) Supracervical unknown) Hysterectomy, bilateral salpingectomy and Mirena (unknown) (no (unknown) (unknown) percent Marcaine (units (unknown) date) with epinephrine unknown) were injected. These were 5 mm incisions. (unknown) (no (unknown) (unknown) she was placed (units (unknown) date) in the dorsal unknown) lithotomy position, and prepped and draped in the (unknown) (no (unknown) (unknown) speculum was (units (u nknown) date) removed from the unknown) vagina. Attention was then turned to the abdomen (unknown) (no (unknown) (unknown) supine position. (units (unknown) date) After adequate unknown) general endotracheal anesthesia was achieved, (unknown) (no (unknown) (unknown) tenaculum was (units ( unknown) date) removed from the unknown) anterior lip of the cervix, and the bivalve (unknown) (no (unknown) (unknown) tenaculum. The (units (unknown) date) Mirena IUD unknown) strings were grasped and it was removed without (unknown) (no (unknown) (unknown) the abdomen. The (units (unknown) date) CO2 was allowed unknown) to escape. The suprapubic incision was closed (unknown) (no (unknown) (unknown) the peritoneal (units (unknown) date) cavity, and its unknown) placement confirmed by aspiration and drop test. (unknown) (no (unknown) (unknown) the uterus was (units (unknown) date) then grasped with unknown) an atraumatic grasper. The utero-ovarian (unknown) (no (unknown) (unknown) tolerated the (units ( unknown) date) procedure well, unknown) was taken to PACU in stable condition. (unknown) (no (unknown) (unknown) umbilical fold. (units (unknown) date) A 5 mm incision unknown) was made. The Verees needle was placed into (unknown) (no (unknown) (unknown) usual sterile (units ( unknown) date) fashion. A unknown) timeout was performed. A bivalve speculum was placed (unknown) (no (unknown) (unknown) uterine arteries (units (unknown) date) on the right side unknown) were extensively cauterized with the (unknown) (no (unknown) (unknown) uterus and tubes (units (unknown) date) were hand unknown) morcellated in approximately 12 pieces. The Endobag (unknown) (no (unknown) (unknown) vagina. Sponge, (units (unknown) date) lap, and unknown) instrument counts were correct x-2. The patient (unknown) (no (unknown) (unknown) warm normal (units (un known) date) saline. No unknown) bleeding was noted. The instruments are removed from (unknown) (no (unknown) (unknown) was removed from (units (unknown) date) the peritoneal unknown) cavity. The pelvis was copiously irrigated with (unknown) (no (unknown) (unknown) were brought up (units (unknown) date) through the skin. unknown) The Bradford was placed into the endobag. The (unknown) (no (unknown) (unknown) were placed into (units (unknown) date) the Endobag. The unknown) trocar was removed. The edges of the endobag (unknown) (no (unknown) (unknown) where 6 mL of (units ( unknown) date) half percent unknown) Marcaine with epinephrine were injected in the Social History date description facility 2022-11-19 00:00 Never smoked tobacco (finding) [facility] 2022-11-20 00:00 Never smoked tobacco (finding) [facility] 2022-11-25 00:00 Never smoked tobacco (finding) [facility] 2023-01-07 00:00 Never smoked tobacco (finding) [facility] Vital Signs date measurement value units 2022-11-20 00:00 BMI 22.4 kg/m2 2022-11-20 00:00 BP_diastolic 64 mmHg 2022-11-20 00:00 BP_systolic 128 mmHg 2022-11-20 00:00 height_metric 175.26 cm 2022-11-20 00:00 height_standard 69 in 2022-11-20 00:00 temperature_metric 36.67 C 2022-11-20 00:00 temperature_standard 98 F 2022-11-20 00:00 weight_metric 68.94 kg 2022-11-20 00:00 weight_standard 151.99 lb 2023-01-07 00:00 BMI 22.4 kg/m2 2023-01-07 00:00 BP_diastolic 70 mmHg 2023-01-07 00:00 BP_systolic 124 mmHg 2023-01-07 00:00 heart_rate 67 /min 2023-01-07 00:00 height_metric 175.26 cm 2023-01-07 00:00 height_standard 69 in 2023-01-07 00:00 o2_saturation 98 % 2023-01-07 00:00 respiration_rate 12 /min 2023-01-07 00:00 temperature_metric 36.67 C 2023-01-07 00:00 temperature_standard 98 F 2023-01-07 00:00 weight_metric 68.94 kg 2023-01-07 00:00 weight_standard 151.99 lb
[2023-01-15 12:39] LABS: BACTERIA,URINE Rare /HPF (None Seen); RBC,URINE 0-5 /HPF (0-5); SQUAMOUS EPITHELIAL CELL,UR MOD Squamous (<= Few); WBC,URINE 0-3 /HPF (0-5)
[2023-01-15 13:22] LABS: B. PARAPERTUSSIS- RESP PCR PAN NOT DETECTED; B. PERTUSSIS- RESP PCR PANEL NOT DETECTED; C. PNEUMONIAE- RESP PCR PANEL NOT DETECTED; CORONAVIRUS 229E-RESP PCR NOT DETECTED; CORONAVIRUS HKU1-RESP PCR NOT DETECTED; CORONAVIRUS NL63-RESP PCR NOT DETECTED; CORONAVIRUS OC43-RESP PCR NOT DETECTED; HUMAN METAPNEUMOVIRUS NOT DETECTED; INFLUENZA A- RESP PCR PANEL NOT DETECTED; INFLUENZA B - RESP PCR PANEL NOT DETECTED; M. PNEUMONIAE- RESP PCR PANEL NOT DETECTED; PARAINFLUENZA VIRUS 1 NOT DETECTED; PARAINFLUENZA VIRUS 2 NOT DETECTED; PARAINFLUENZA VIRUS 3 NOT DETECTED; PARAINFLUENZA VIRUS 4 NOT DETECTED; RHINOVIRUS/ENTEROVIRUS NOT DETECTED; RSV- RESP PCR PANEL NOT DETECTED; SARS-CoV-2 -RESP PCR PANEL NOT DETECTED
--- NOTE | 2023-01-15 13:26 | CT Report ---
PROCEDURE: ABDOMEN/PELVIS W INDICATIONS: recent hysterectomy, fevers, hx of UC with flare CONTRAST: 100ml Omnipaque 300 TECHNIQUE: After the administration of intravenous contrast, 5 mm thick sections acquired from the diaphragms to the symphysis. 5 mm thick coronal and sagittal reformats were acquired. For radiation dose reducti on, the following was used: automated exposure control, adjustment of mA and/or kV according to minerva ent size. COMPARISON: 08/11/2022 FINDINGS: Image quality: Excellent. Lung bases and heart: Clear lung bases. Normal size heart. Partially imaged bilateral breast implants . Liver: Unremarkable. Gallbladder and biliary tree: Unremarkable. No biliary dilation. Spleen: Unremarkable. Pancreas: Unremarkable. Adrenals: Unremarkable. Kidneys and ureters: Unremarkable. Bowel and peritoneum: Decompressed stomach. There are a few loops of normal caliber, fluid containing small bowel. No suspicious air-fluid levels. No significant colon wall thickening or pericolonic inf lammation. The appendix appears normal. Minor generalized fat stranding throughout the pelvis includi ng perirectal fat. Lymph nodes: No central or retroperitoneal adenopathy. Vessels: Unremarkable. PELVIS Reproductive organs: 2.9 cm cystic lesion near the left pelvic sidewall containing an oval peripheral ly vascular 2.0 cm cyst, likely involuting corpus luteum. The right ovary was not well seen. There paz s been a supracervical hysterectomy. No associated fluid collections. Bladder: Unremarkable. Lymph nodes: Unremarkable. Bones: No aggressive osseous abnormality. Other: None. IMPRESSION: 1. A few fluid filled small bowel loops and minor generalized lower pelvic inflammation may indicate enteritis. No focal colonic findings to indicate acute ulcerative colitis. 2. Involuting peripherally vascular left ovarian corpus luteum. 3. Interval supracervical hysterectomy. Reviewed by: Debbie Goodrich MD on 01/15/2023 1:24 PM PDT Approved by: Debbie Goodrich MD on 01/15/2023 1:24 PM PDT Station ID: [id number]
[2023-01-15] MEDS ORDERED: iohexoL-300 100 ML VIAL IVP ONE (15:01)
[2023-01-15] MEDS ORDERED: KETOROLAC 30 MG/ML VIAL IVP STA (15:30)
[2023-01-15 15:40] VITALS: BP 107/64
[2023-01-16 05:11] LABS: CYTOMEGALOVIRUS (CMV) AB IGM <30.0 AU/mL (0.0-29.9)
[2023-01-17 16:08] LABS: CMV QUANTITATION DNA PCR Negative (Negative)
[2023-01-19 14:08] LABS: OVA + PARASITE EXAM Final report (.)
== END 2023-01-15 15:50 | disposition home or self-care (01) ==
LOC: ED 11:27
DX: R10.30 Lower abdominal pain, unspecified (principal); R30.0 Dysuria; K51.90 Ulcerative colitis, unspecified, without complications; Z20.822 Contact with and (suspected) exposure to COVID-19; Z90.710 Acquired absence of both cervix and uterus; Z79.52 Long term (current) use of systemic steroids
CPT/HCPCS: 36415; 51701; 71045; 74177; 80053; 81001; 83605; 85025; 86644; 86645; 87040; 87045; 87046; 87177; 87427; 87497; 87633; 96374; 96375; 99284; Q9967; 87086; 87328; 87329